=== PATIENT | male | born 1955 | race Caucasian/White ===

== ENCOUNTER 2016-06-26 06:06 | Emergency (ER) | payer MEDICARE, MEDICAID ==
[~2016-06-26] VITALS: Ht 175.3 cm; Wt 129.0 kg
[~2016-06-26 06:06] MED LIST: GEOD80CA PO; PERC10TA27 PO; WELL150T PO; [UNRECOGNIZED DRUG - CODE]
[2016-06-26 06:11] VITALS: TEMP 99.6
[2016-06-26 06:14] VITALS: BP 139/75; PULSE 88; RESP 14; TEMP 99.6; O2SAT 95
[2016-06-26] MEDS ORDERED: BUPR100T4 PO (06:19)
[2016-06-26] MEDS ORDERED: ZIPR1CAP10 PO (06:19)
[2016-06-26] MEDS ORDERED: ONDANSETRON HCL 4 MG/2 ML VIAL IV PUSH ONE (06:45)
[2016-06-26] MEDS ORDERED: SODIUM CHLOR 0.9% 1000 ML INJ 1,000 ML IV ONE (06:45)
[2016-06-26] MEDS ORDERED: KETOROLAC TROMETHAMINE 30 MG/ML (IVP) VIAL IV PUSH ONE (06:45)
--- NOTE | 2016-06-26 06:47 | PD ---
HPI Chief Complaint: Flank/Kidney Pain Time Seen by Provider: 06:38 Travel History International Travel<30 days: No Contact w/Intl Traveler<30days: No Traveled to known affect area: No History of Present Illness HPI 60yo M with PMH of bipolar disorder and nephrolithiasis presents to the ED with c/o right lower back pain since last night. +NBNB vomiting and nonbloody diarrhea last night. Did not take any pain medication. Pain is localized, sharp and nonradiating, worst with movement. Denies any fever, chest pain, sob , trauma, focal weakness or numbness, abdominal pain, urinary complaints. PFSH Past Medical History Arthritis: Yes Asthma: No Autoimmune Disease: No Blood Disorders: No Bipolar Disorder: Yes Anxiety: Yes Depression: Yes Heart Rhythm Problems: No Cancer: No Cardiovascular Problems: Yes (HTN) Cerebral Palsy: Yes High Cholesterol: Yes Chemotherapy: No Chest Pain: No Congestive Heart Failure: No COPD: No Cerebrovascular Accident: No Developmental Delay: Yes (H/O CP AND ENCEPHALITIS) Diabetes: No Diminished Hearing: No Diverticulitis: Yes Endocrine: No Gastrointestinal Disorders: Yes (DIVERTICULITIS) GERD: Yes Glaucoma: No Genitourinary: No Headaches: No Hepatitis: No Hiatal Hernia: No Hypertension: Yes Immune Disorder: No Implanted Vascular Access Dvce: Yes (PT STATES "TWO TOTAL KNEE REPLACEMENTS") Kidney Stones: Yes (WITH LITHOTRIPSY) Musculoskeletal: Yes Neurologic: No Psychiatric: Yes Reproductive: No Respiratory: No Immunizations Current: Yes Migraines: No Myocardial Infarction: No Radiation Therapy: No Renal Failure: No Seizures: No Sickle Cell Disease: No Sleep Apnea: No Thyroid Disease: No Ulcer: No PNEUMOCCOCAL Vaccine (Year): 2009 Past Surgical History Abdominal Surgery: No AICD: No Appendectomy: No Arteriovenous Shunt: No Cardiac Surgery: No Cholecystectomy: No Ear Surgery: No Endocrine Surgery: No Eye Surgery: No Genitourinary Surgery: No Gynecologic Surgery: No Insulin Pump: No Joint Replacement: Yes (BILATERAL KNEES) Neurologic Surgery: Yes (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, cp as a kid, traces now per patient repor) Oral Surgery: No Pacemaker: No Thoracic Surgery: No Tonsillectomy: Yes Other Surgery: Yes Social History Alcohol Use: No Tobacco Use: Yes (1PPD) Substance Use: No Allergies-Medications (Allergen,Severity, Reaction): Coded Allergies: Keflex (Verified Allergy, Severe, RASH, 06/26/16) Reported Meds & Prescriptions Reported Meds & Active Scripts Active Reported Bupropion HCl 100 Mg Tab 150 Mg PO HS Ziprasidone 60 Mg Cap 120 Mg PO HS Review of Systems Except as stated in HPI: all other systems reviewed are Neg Physical Exam Narrative GENERAL: 60yo M not in distress. SKIN: Focused skin assessment warm/dry. HEAD: Atraumatic. Normocephalic. CARDIOVASCULAR: Regular rate and rhythm. No murmur appreciated. RESPIRATORY: No accessory muscle use. Clear to auscultation. Breath sounds equal bilaterally. GASTROINTESTINAL: Abdomen soft, non-tender, nondistended. No rebound tenderness or guarding. BACK: No midline ttp thoracic or lumbar spine. +TTP right paraspinal lumbar spine. Negative straight leg test. MUSCULOSKELETAL: No obvious deformities. No clubbing. No cyanosis. +Bilateral lower ext edema. NEUROLOGICAL: Awake and alert. No obvious cranial nerve deficits. Motor grossly within normal limits. Normal speech. PSYCHIATRIC: Appropriate mood and affect; insight and judgment normal. Data Data Last Documented VS Vital Signs Date Time Temp Pulse Resp B/P Pulse Ox O2 Delivery O2 Flow Rate FiO2 06/26/16 09:00 06/26/16 08:49 77 16 100 Room Air 06/26/16 06:14 99.6 Orders Complete Blood Count With Diff (06/26/16 06:42) Comprehensive Metabolic Panel (06/26/16 06:42) Urinalysis - C+S If Indicated (06/26/16 06:42) Ct Abd/Pel W/O Iv Contrast (06/26/16 ) Ondansetron Inj (Zofran Inj) (06/26/16 06:45) Sodium Chlor 0.9% 1000 Ml Inj (Ns 1000 M (06/26/16 06:45) Ketorolac Inj (Toradol Inj) (06/26/16 06:45) Labs Laboratory Tests Test 06/26/16 06/26/16 06:46 07:10 White Blood Count 9.5 TH/MM3 Red Blood Count 5.36 MIL/MM3 Hemoglobin 17.2 GM/DL Hematocrit 49.7 % Mean Corpuscular Volume 92.8 FL Mean Corpuscular Hemoglobin 32.1 PG Mean Corpuscular Hemoglobin 34.6 % Concent Red Cell Distribution Width 12.8 % Platelet Count 181 TH/MM3 Mean Platelet Volume 7.8 FL Neutrophils (%) (Auto) 89.5 % Lymphocytes (%) (Auto) 6.8 % Monocytes (%) (Auto) 3.3 % Eosinophils (%) (Auto) 0.2 % Basophils (%) (Auto) 0.2 % Neutrophils # (Auto) 8.5 TH/MM3 Lymphocytes # (Auto) 0.6 TH/MM3 Monocytes # (Auto) 0.3 TH/MM3 Eosinophils # (Auto) 0.0 TH/MM3 Basophils # (Auto) 0.0 TH/MM3 CBC Comment DIFF FINAL Differential Comment Sodium Level 137 MEQ/L Potassium Level 4.5 MEQ/L Chloride Level 105 MEQ/L Carbon Dioxide Level 24.1 MEQ/L Anion Gap 8 MEQ/L Blood Urea Nitrogen 21 MG/DL Creatinine 1.23 MG/DL Estimat Glomerular Filtration 60 ML/MIN Rate Random Glucose 102 MG/DL Calcium Level 9.0 MG/DL Total Bilirubin 0.8 MG/DL Aspartate Amino Transf 38 U/L (AST/SGOT) Alanine Aminotransferase 31 U/L (ALT/SGPT) Alkaline Phosphatase 75 U/L Total Protein 7.3 GM/DL Albumin 3.8 GM/DL Urine Color YELLOW Urine Turbidity CLEAR Urine pH 5.0 Urine Specific [employer] 1.022 Urine Protein NEG mg/dL Urine Glucose (UA) NEG mg/dL Urine Ketones NEG mg/dL Urine Occult Blood NEG Urine Nitrite NEG Urine Bilirubin NEG Urine Urobilinogen LESS THAN 2.0 MG/DL Urine Leukocyte Esterase NEG Urine RBC LESS THAN 1 /hpf Urine WBC LESS THAN 1 /hpf Urine Squamous Epithelial <1 /hpf Cells Urine Mucus FEW /lpf Microscopic Urinalysis Comment CULT NOT INDICATED MDM Medical Decision Making Medical Screen Exam Complete: Yes Emergency Medical Condition: Yes Differential Diagnosis Musculoskeletal pain vs. nephrolithiasis vs. pyelonephritis vs. gastroenteritis Narrative Course 60yo M with right lower back pain. Impression is more musculoskeletal but pt also has history of nephrolithiasis. No red flags. Pt seen at end of my shift , sign out to next team to follow up labs, UA, CTa/p without contrast. Diagnosis Primary Impression: Back pain Qualified Code: M54.5 - Acute low back pain without sciatica, unspecified back pain laterality Sandra Hamilton DO Jun 26, 2016 06:47
[2016-06-26 07:00] LABS: AUTOMATED NEUTROPHIL # 8.5 TH/MM3 (1.8-7.7); BASOPHIL % 0.2 % (0.0-2.0); EOSINOPHIL % 0.2 % (0.0-4.0); HEMATOCRIT 49.7 % (39.0-51.0); HEMO FLAGS DIFF FINAL; LYMPH % 6.8 % (9.0-44.0); LYMPHOCYTE # 0.6 TH/MM3 (1.0-4.8); MEAN CELL VOLUME 92.8 FL (80.0-100.0); MEAN CORPUSCULAR HEMOGLOBIN 32.1 PG (27.0-34.0); MEAN CORPUSCULAR HGB CONC 34.6 % (32.0-36.0); MONO % 3.3 % (0.0-8.0); NEUT % 89.5 % (16.0-70.0); PLATELET COUNT 181 TH/MM3 (150-450); RED BLOOD COUNT 5.36 MIL/MM3 (4.50-5.90); RED CELL DISTRIBUTION WIDTH 12.8 % (11.6-17.2); WHITE BLOOD COUNT 9.5 TH/MM3 (4.0-11.0)
[2016-06-26 07:17] LABS: ALKALINE PHOSPHATASE 75 U/L (45-117); TOTAL BILIRUBIN ADULT 0.8 MG/DL (0.2-1.0)
[2016-06-26 07:25] LABS: ALT (GPT) 31 U/L (12-78); ANION GAP 8 MEQ/L (5-15); AST (GOT) 38 U/L (15-37); BICARBONATE 24.1 MEQ/L (21.0-32.0); BLOOD UREA NITROGEN 21 MG/DL (7-18); CHLORIDE 105 MEQ/L (98-107); GLOMERULAR FILTRATION RATE 60 ML/MIN (>89); SODIUM (NA) 137 MEQ/L (136-145)
[2016-06-26 07:27] LABS: POTASSIUM 4.5 MEQ/L (3.5-5.1)
[2016-06-26 07:33] LABS: BLOOD, URINE NEG (NEG); GLUCOSE,URINE NEG (NEG); KETONE, URINE NEG (NEG); MUCUS URINE FEW /lpf (OCC); NITRITE,URINE NEG (NEG); SQUAMOUS EPITHELIAL CELL URINE <1 /hpf (0-5); URINE COLOR YELLOW (YELLW/STRAW)
[2016-06-26 07:37] LABS: COMMENT (UR) CULT NOT INDICATED; CULTURE IF INDICATED CULT NOT INDICATED
--- NOTE | 2016-06-26 07:48 | RADRPT ---
EXAM DATE/TIME: 06/26/2016 07:08 [facility] COMPARISON: CT ABDOMEN & PELVIS W/O CONTRAST, October 23, 2012, 3:49. INDICATIONS : Right flank pain. ORAL CONTRAST: No oral contrast ingested. RADIATION DOSE: 33.82 CTDIvol (mGy) MEDICAL HISTORY : Renal calculi. Hypertension. Cerebral palsy. SURGICAL HISTORY : None. ENCOUNTER: Initial ACUITY: 1 day PAIN SCALE: 7/10 LOCATION: Right flank TECHNIQUE: Volumetric scanning of the abdomen and pelvis was performed. Using automated exposure control and ad justment of the mA and/or kV according to patient size, radiation dose was kept as low as reasonably achievable to obtain optimal diagnostic quality images. FINDINGS: LOWER LUNGS: The visualized lower lungs are clear. LIVER: Homogeneous density without lesion. There is no dilation of the biliary tree. Multiple calcified gal lstones. SPLEEN: Normal size without lesion. PANCREAS: Within normal limits. 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 There is no mass, stone, or hydronephrosis. ADRENAL GLANDS: Within normal limits. VASCULAR: There is no aortic aneurysm. BOWEL/MESENTERY: Diverticulosis. There is no free intraperitoneal air or fluid. Appendix not well-seen. No inflammato ry changes right lower quadrant. ABDOMINAL WALL: Small fat-containing umbilical hernia. RETROPERITONEUM: There is no lymphadenopathy. BLADDER: No wall thickening or mass. REPRODUCTIVE: Within normal limits. INGUINAL: There is no lymphadenopathy or hernia. MUSCULOSKELETAL: Spondylolisthesis L5 on S1 with degenerative changes. CONCLUSION: 1. Cholelithiasis. 2. Diverticulosis of the colon without diverticulitis. 3. Small hiatal hernia. 4. No renal calculi or hydronephrosis. Amadou Leon MD on June 26, 2016 at 7:43 Board Certified Radiologist. This report was verified electronically.
--- NOTE | 2016-06-26 08:39 | PD ---
Data Data Last Documented VS Vital Signs Date Time Temp Pulse Resp B/P Pulse Ox O2 Delivery O2 Flow Rate FiO2 06/26/16 06:14 99.6 88 14 139/75 95 Room Air Orders Complete Blood Count With Diff (06/26/16 06:42) Comprehensive Metabolic Panel (06/26/16 06:42) Urinalysis - C+S If Indicated (06/26/16 06:42) Ct Abd/Pel W/O Iv Contrast (06/26/16 ) Ondansetron Inj (Zofran Inj) (06/26/16 06:45) Sodium Chlor 0.9% 1000 Ml Inj (Ns 1000 M (06/26/16 06:45) Ketorolac Inj (Toradol Inj) (06/26/16 06:45) Labs Laboratory Tests Test 06/26/16 06/26/16 06:46 07:10 White Blood Count 9.5 TH/MM3 Red Blood Count 5.36 MIL/MM3 Hemoglobin 17.2 GM/DL Hematocrit 49.7 % Mean Corpuscular Volume 92.8 FL Mean Corpuscular Hemoglobin 32.1 PG Mean Corpuscular Hemoglobin 34.6 % Concent Red Cell Distribution Width 12.8 % Platelet Count 181 TH/MM3 Mean Platelet Volume 7.8 FL Neutrophils (%) (Auto) 89.5 % Lymphocytes (%) (Auto) 6.8 % Monocytes (%) (Auto) 3.3 % Eosinophils (%) (Auto) 0.2 % Basophils (%) (Auto) 0.2 % Neutrophils # (Auto) 8.5 TH/MM3 Lymphocytes # (Auto) 0.6 TH/MM3 Monocytes # (Auto) 0.3 TH/MM3 Eosinophils # (Auto) 0.0 TH/MM3 Basophils # (Auto) 0.0 TH/MM3 CBC Comment DIFF FINAL Differential Comment Sodium Level 137 MEQ/L Potassium Level 4.5 MEQ/L Chloride Level 105 MEQ/L Carbon Dioxide Level 24.1 MEQ/L Anion Gap 8 MEQ/L Blood Urea Nitrogen 21 MG/DL Creatinine 1.23 MG/DL Estimat Glomerular Filtration 60 ML/MIN Rate Random Glucose 102 MG/DL Calcium Level 9.0 MG/DL Total Bilirubin 0.8 MG/DL Aspartate Amino Transf 38 U/L (AST/SGOT) Alanine Aminotransferase 31 U/L (ALT/SGPT) Alkaline Phosphatase 75 U/L Total Protein 7.3 GM/DL Albumin 3.8 GM/DL Urine Color YELLOW Urine Turbidity CLEAR Urine pH 5.0 Urine Specific [place] 1.022 Urine Protein NEG mg/dL Urine Glucose (UA) NEG mg/dL Urine Ketones NEG mg/dL Urine Occult Blood NEG Urine Nitrite NEG Urine Bilirubin NEG Urine Urobilinogen LESS THAN 2.0 MG/DL Urine Leukocyte Esterase NEG Urine RBC LESS THAN 1 /hpf Urine WBC LESS THAN 1 /hpf Urine Squamous Epithelial <1 /hpf Cells Urine Mucus FEW /lpf Microscopic Urinalysis Comment CULT NOT INDICATED MDM Supervised Visit with YOU: No Narrative Course This case is checked out to me by Dr. Hamilton at 7 AM. I have reevaluated the patient and discussed the entirety of the workup with him. The urine is clean and labs are normal. CT abdomen and pelvis shows no sign of kidney stone. There are some incidental findings such as cholelithiasis and diverticulosis. He is resting comfortably and feels much better. He is stable for outpatient primary care follow-up. Diagnosis Primary Impression: Back pain Qualified Code: M54.5 - Acute low back pain without sciatica, unspecified back pain laterality Additional Instruction: The patient was advised to follow up with their physician and return if they worsen. Med/Other Pt SpecificInfo: Other Disposition: 01 DISCHARGE HOME Condition: Stable Jomar Costello MD Jun 26, 2016 08:39
[2016-06-26 08:49] VITALS: BP 151/80; PULSE 77; RESP 16; O2SAT 100
== END 2016-06-26 09:13 | disposition home or self-care (01) ==
LOC: NEPE 06:06
DX: M54.5 Low back pain (principal); R11.10 Vomiting, unspecified; R19.7 Diarrhea, unspecified; I10 Essential (primary) hypertension; E78.00 Pure hypercholesterolemia, unspecified; G80.9 Cerebral palsy, unspecified; F17.200 Nicotine dependence, unspecified, uncomplicated; Z87.39 Personal history of other diseases of the musculoskeletal system and connective tissue; Z86.59 Personal history of other mental and behavioral disorders; Z86.79 Personal history of other diseases of the circulatory system; Z87.19 Personal history of other diseases of the digestive system; Z87.448 Personal history of other diseases of urinary system
CPT/HCPCS: 74176; 80053; 81001; 85025; 96361; 96374; 96375; 99284; J1885; J2405; J7030

== ENCOUNTER 2017-03-20 18:12 | Inpatient (IN) | payer MEDICARE, MEDICAID ==
[~2017-03-20] VITALS: Ht 175.3 cm; Wt 127.4 kg
[~2017-03-20 18:12] MED LIST changes: +BUPR100T4 PO; -GEOD80CA PO; -PERC10TA27 PO; -WELL150T PO; +ZIPR1CAP10 PO; -[UNRECOGNIZED DRUG - CODE]
[2017-03-20 18:27] VITALS: BP 142/68; PULSE 103; RESP 18; TEMP 101.8; O2SAT 95
[2017-03-20 18:31] VITALS: BP 142/68; PULSE 70; RESP 18; TEMP 101.8; O2SAT 95
[2017-03-20 19:00] VITALS: RESP 18; O2SAT 95
[2017-03-20] MEDS ORDERED: SODIUM CHLORIDE 0.9% FLUSH 10 ML FLUSH IV FLUSH PRN ×2 (19:00→22:30)
[2017-03-20 19:55] LABS: AUTOMATED NEUTROPHIL # 16.8 TH/MM3 (1.8-7.7); BASOPHIL % 0.1 % (0.0-2.0); HEMATOCRIT 42.1 % (39.0-51.0); HEMOGLOBIN 15.1 GM/DL (13.0-17.0); LYMPH % 5.7 % (9.0-44.0); LYMPHOCYTE # 1.1 TH/MM3 (1.0-4.8); MEAN CELL VOLUME 90.3 FL (80.0-100.0); MEAN CORPUSCULAR HEMOGLOBIN 32.5 PG (27.0-34.0); MEAN CORPUSCULAR HGB CONC 35.9 % (32.0-36.0); MEAN PLATELET VOLUME 7.4 FL (7.0-11.0); MONO % 7.3 % (0.0-8.0); MONOCYTE # 1.4 TH/MM3 (0-0.9); NEUT % 86.9 % (16.0-70.0); PLATELET COUNT 204 TH/MM3 (150-450); RED BLOOD COUNT 4.66 MIL/MM3 (4.50-5.90); RED CELL DISTRIBUTION WIDTH 12.8 % (11.6-17.2); WHITE BLOOD COUNT 19.3 TH/MM3 (4.0-11.0)
--- NOTE | 2017-03-20 19:58 | PD ---
HPI Chief Complaint: Fall Time Seen by Provider: 18:34 Travel History International Travel<30 days: No Contact w/Intl Traveler<30days: No Traveled to known affect area: No History of Present Illness HPI 61-year-old male with PMH of hypertension and cerebral palsy presents to the ED via EMS for evaluation after multiple falls at home. On presentation the patient states that he's been feeling dizzy lately and has had multiple falls. He denies hitting his head or loss of consciousness. On presentation he denies neck or back pain. He complains of dizziness, cough, loose stools 1 week. He endorses chills but has not measured a fever at home. He denies headache, vision changes, chest pain, palpitations, shortness of breath, abdominal pain, hematochezia, melena, dysuria, hematuria. He states that he does not have a primary care provider. He does not take blood thinners. PFSH Past Medical History Arthritis: Yes Asthma: No Autoimmune Disease: No Blood Disorders: No Bipolar Disorder: Yes Anxiety: Yes Depression: Yes Heart Rhythm Problems: No Cancer: No Cardiovascular Problems: Yes (HTN ) Cerebral Palsy: Yes High Cholesterol: Yes Chemotherapy: No Chest Pain: No Congestive Heart Failure: No COPD: No Cerebrovascular Accident: No Developmental Delay: Yes (H/O CP AND ENCEPHALITIS) Diabetes: No Diminished Hearing: No Diverticulitis: Yes Endocrine: No Gastrointestinal Disorders: Yes (DIVERTICULITIS) GERD: Yes Glaucoma: No Genitourinary: No Headaches: No Hepatitis: No Hiatal Hernia: No Hypertension: Yes Immune Disorder: No Implanted Vascular Access Dvce: Yes (PT STATES "TWO TOTAL KNEE REPLACEMENTS") Kidney Stones: Yes (WITH LITHOTRIPSY) Musculoskeletal: Yes Neurologic: No Psychiatric: Yes Reproductive: No Respiratory: No Immunizations Current: Yes Migraines: No Myocardial Infarction: No Radiation Therapy: No Renal Failure: No Seizures: No Sickle Cell Disease: No Sleep Apnea: No Thyroid Disease: No Ulcer: No PNEUMOCCOCAL Vaccine (Year): 2009 Past Surgical History Abdominal Surgery: No AICD: No Appendectomy: No Arteriovenous Shunt: No Cardiac Surgery: No Cholecystectomy: No Ear Surgery: No Endocrine Surgery: No Eye Surgery: No Genitourinary Surgery: No Gynecologic Surgery: No Insulin Pump: No Joint Replacement: Yes (BILATERAL KNEES) Neurologic Surgery: Yes (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, cp as a kid, traces now per patient repor) Oral Surgery: No Pacemaker: No Thoracic Surgery: No Tonsillectomy: Yes Other Surgery: Yes Social History Alcohol Use: No Tobacco Use: No Substance Use: No Allergies-Medications (Allergen,Severity, Reaction): Coded Allergies: cephalexin (Unverified Allergy, Severe, RASH, 11/11/16) Reported Meds & Prescriptions Reported Meds & Active Scripts Active Reported Bupropion HCl 100 Mg Tab 150 Mg PO HS Ziprasidone 60 Mg Cap 120 Mg PO HS Review of Systems Except as stated in HPI: all other systems reviewed are Neg Physical Exam Narrative GENERAL: Well-nourished, well-developed patient. Lying on his side on a backboard. C-collar in place. SKIN: Focused skin assessment warm/dry. Bilateral lower extremities with multiple small wounds, erythema, edema, warmth, serosanguineous drainage. HEAD: Normocephalic. Atraumatic. EYES: No scleral icterus. No injection or drainage. PERRLA. EOMI. NECK: Supple, trachea midline. No JVD or lymphadenopathy. No midline tenderness to palpation. No limitations to range of motion. CARDIOVASCULAR: Regular rate and rhythm without murmurs, gallops, or rubs. RESPIRATORY: Breath sounds equal bilaterally. No accessory muscle use. GASTROINTESTINAL: Abdomen soft, non-tender, nondistended. MUSCULOSKELETAL: No cyanosis. Tender edema of the bilateral lower extremities to the knee. NEUROLOGICAL: Awake and alert. Cranial nerves II through XII intact. Motor and sensory grossly within normal limits. Five out of 5 muscle strength in all muscle groups. Normal speech. BACK: Nontender without obvious deformity. No CVA tenderness. Data Data Last Documented VS Vital Signs Date Time Temp Pulse Resp B/P (MAP) Pulse Ox O2 Delivery O2 Flow Rate FiO2 03/20/17 21:54 88 20 114/66 (82) 95 Room Air 03/20/17 18:31 101.8 Orders Orders Complete Blood Count With Diff (03/20/17 18:55) Comprehensive Metabolic Panel (03/20/17 18:55) Lactic Acid (03/20/17 18:55) Prothrombin Time / Inr (Pt) (03/20/17 18:55) Act Partial Throm Time (Ptt) (03/20/17 18:55) Urinalysis - C+S If Indicated (03/20/17 18:55) Iv Access Insert/Monitor (03/20/17 18:55) Ecg Monitoring (03/20/17 18:55) Oximetry (03/20/17 18:55) Sodium Chloride 0.9% Flush (Ns Flush) (03/20/17 19:00) Sodium Chlor 0.9% 1000 Ml Inj (Ns 1000 M (03/20/17 20:00) Acetaminophen (Tylenol) (03/20/17 20:00) Sepsis Workup Initiated (03/20/17 ) Blood Culture (03/20/17 19:59) Chest, Single Ap (03/20/17 19:59) Ct Brain W/O Iv Contrast(Rout) (03/20/17 ) Sodium Chlor 0.9% 1000 Ml Inj (Ns 1000 M (03/20/17 21:00) Clindamycin Inj (Cleocin Inj) (03/20/17 21:00) Cath For Specimen (03/20/17 21:01) Labs Laboratory Tests Test 03/20/17 19:21 White Blood Count 19.3 TH/MM3 Red Blood Count 4.66 MIL/MM3 Hemoglobin 15.1 GM/DL Hematocrit 42.1 % Mean Corpuscular Volume 90.3 FL Mean Corpuscular Hemoglobin 32.5 PG Mean Corpuscular Hemoglobin Concent 35.9 % Red Cell Distribution Width 12.8 % Platelet Count 204 TH/MM3 Mean Platelet Volume 7.4 FL Neutrophils (%) (Auto) 86.9 % Lymphocytes (%) (Auto) 5.7 % Monocytes (%) (Auto) 7.3 % Eosinophils (%) (Auto) 0.0 % Basophils (%) (Auto) 0.1 % Neutrophils # (Auto) 16.8 TH/MM3 Lymphocytes # (Auto) 1.1 TH/MM3 Monocytes # (Auto) 1.4 TH/MM3 Eosinophils # (Auto) 0.0 TH/MM3 Basophils # (Auto) 0.0 TH/MM3 CBC Comment AUTO DIFF Differential Total Cells Counted 100 Neutrophils % (Manual) 80 % Band Neutrophils % 13 % Lymphocytes % 2 % Monocytes % 5 % Neutrophils # (Manual) 17.9 TH/MM3 Differential Comment FINAL DIFF MANUAL Toxic Granulation 2+ Platelet Estimate NORMAL Platelet Morphology Comment NORMAL Prothrombin Time 13.4 SEC Prothromb Time International Ratio 1.3 RATIO Activated Partial Thromboplast Time 33.3 SEC Blood Urea Nitrogen 14 MG/DL Creatinine 1.52 MG/DL Random Glucose 75 MG/DL Total Protein 7.3 GM/DL Albumin 2.9 GM/DL Calcium Level 8.2 MG/DL Alkaline Phosphatase 86 U/L Aspartate Amino Transf (AST/SGOT) 58 U/L Alanine Aminotransferase (ALT/SGPT) 42 U/L Total Bilirubin 1.3 MG/DL Sodium Level 132 MEQ/L Potassium Level 3.3 MEQ/L Chloride Level 96 MEQ/L Carbon Dioxide Level 26.5 MEQ/L Anion Gap 10 MEQ/L Estimat Glomerular Filtration Rate 47 ML/MIN Lactic Acid Level 3.1 mmol/L [facility] Medical Decision Making Medical Screen Exam Complete: Yes Emergency Medical Condition: Yes Differential Diagnosis Cellulitis versus sepsis versus chronic falls versus metabolic derangement versus dehydration versus other Narrative Course 61-year-old male with PMH of hypertension and cerebral palsy presents to the ED via EMS for evaluation after multiple falls at home. He denies hitting his head or loss of consciousness. On presentation he denies neck or back pain. He complains of dizziness, cough, loose stools 1 week. He endorses chills but has not measured a fever at home. Denies blood thinners. Vitals reviewed. Patient's febrile, or cardiac and hypertensive on presentation. On exam the patient is lying on his side on a backboard. He is wearing a c-collar. Patient was cleared off the backboard. He denies neck pain and has no tenderness to palpation or limitation to range of motion of the neck. C-collar was removed. No focal neuro deficits noted. There is multiple small wounds of the lower extremities with warm, tender edema and erythema to the mid shins bilaterally. Left worse than right. I suspect this is the source of his fever. IV was established. Patient was administered 2 L normal saline, 1 g Tylenol by mouth. Blood cultures were obtained. There was some concern of the patient may have bedbugs. I see no evidence of this on the exam. CBC: WBC 19.3 with left shift and 13 bands. CMP: Sodium 132, coronary 6. Potassium 3.3. BUN 14. Creatinine 1.52. Calcium 8.2. Bilirubin 1.3, AST 58, ALT 42. Lactic acid 3.1. UA: Pending. CT brain: Pending Patient was administered 900 mg clindamycin IV. Patient meets sepsis criteria. I discussed the results of workup with the patient as well as the need for admission to the hospital. He is agreeable to that plan. I spoke with Dr. Brown who agrees to accept the patient to the medicine service. Please see medicine notes for disposition. Diana Coffey Mar 20, 2017 19:58
[2017-03-20] MEDS ORDERED: SODIUM CHLOR 0.9% 1000 ML INJ 1,000 ML IV ONE ×2 (20:00→21:00)
[2017-03-20] MEDS ORDERED: ACETAMINOPHEN 500 MG CPLT PO ONE (20:00)
[2017-03-20 20:08] LABS: INTERNATIONAL NORMALIZED RATIO 1.3 RATIO; PROTHROMBIN TIME - PATIENT 13.4 SEC (9.8-11.6)
[2017-03-20 20:16] LABS: ALBUMIN 2.9 GM/DL (3.4-5.0); AST (GOT) 58 U/L (15-37); BICARBONATE 26.5 MEQ/L (21.0-32.0); BLOOD UREA NITROGEN 14 MG/DL (7-18); CALCIUM 8.2 MG/DL (8.5-10.1); CHLORIDE 96 MEQ/L (98-107); CREATININE 1.52 MG/DL (0.60-1.30); GLOMERULAR FILTRATION RATE 47 ML/MIN (>89); GLUCOSE,RANDOM 75 MG/DL (74-106); SODIUM (NA) 132 MEQ/L (136-145)
[2017-03-20 20:17] LABS: ALT (GPT) 42 U/L (12-78)
[2017-03-20 20:19] LABS: ALKALINE PHOSPHATASE 86 U/L (45-117); TOTAL BILIRUBIN ADULT 1.3 MG/DL (0.2-1.0); TOTAL PROTEIN 7.3 GM/DL (6.4-8.2)
--- NOTE | 2017-03-20 20:30 | RADRPT ---
EXAM DATE/TIME: 03/20/2017 20:06 [facility] COMPARISON: CHEST SINGLE AP, September 14, 2014, 20:36. INDICATIONS : Shortness of breath. MEDICAL HISTORY : Renal calculi. Hypertension. Cerebral palsy. SURGICAL HISTORY : None. ENCOUNTER: Initial ACUITY: 1 day PAIN SCORE: 0/10 LOCATION: Bilateral chest FINDINGS: A single view of the chest demonstrates the lungs to be symmetrically aerated without evidence of mas s, infiltrate or effusion. The cardiomediastinal contours are unremarkable. Osseous structures are intact. CONCLUSION: The lungs are clear. James Curtis MD on March 20, 2017 at 20:27 Board Certified Radiologist. This report was verified electronically.
[2017-03-20] MEDS ORDERED: CLINDAMYCIN INJ 900 MG in SODIUM CHLORIDE 0.9% INJ 100 ML IV ONE (21:00)
[2017-03-20 21:42] LABS: BANDS 13 % (0-6); LYMPHOCYTES 2 % (9-44); MONOCYTES 5 % (0-8); NEUTROPHIL # MANUAL DIFF 17.9 TH/MM3 (1.8-7.7); POLYS (SEG NEUTROPHILS) 80 % (16-70)
[2017-03-20 21:43] LABS: TOXIC GRANULATION 2+ (NORMAL)
[2017-03-20 21:54] VITALS: BP 114/66; PULSE 88; RESP 20; O2SAT 95
[2017-03-20] MEDS ORDERED: SODIUM CHLOR 0.9% 1000 ML INJ 1,000 ML IV SCH (22:17)
--- NOTE | 2017-03-20 22:22 | HHI.HP ---
HPI Service [facility] Primary Care Physician Unknown Admission Diagnosis sepsis, BLE cellulitis Diagnoses: (1) Sepsis Diagnosis: Principal (2) Cellulitis Diagnosis: Principal (3) Renal insufficiency Diagnosis: Principal (4) Cerebral palsy Diagnosis: Principal (5) Fall Diagnosis: Principal Travel History International Travel<30 Days: No Contact w/Intl Traveler <30 Da: No Traveled to Known Affected Are: No History of Present Illness This is a 61-year-old male with PMH of Anxiety, Depression, HTN, Hyperlipidemia and Cerebral Palsy was brought to the ER by EMS secondary to fall at home while getting out of the shower. Denies LOC or head trauma, but reports significant dizziness/lightheadedness. Also reports cough, generalized weakness and subjective fever/chills at home. On arrival, BP 142/68, HR 103, O2 sat 95% on RA, Temp 101.8. WBC 19.3, bandemia 13%. Creatinine 1.52, previously 1.23 on . Lactic Acid 3.1. INR 1.3. UA negative. CXR with no acute findings. CT Head negative. On exam, patient noted to have lower extremity cellulitis bilaterally. S/p Blood Cultures/Clinda IV in ER. Review of Systems Except as stated in HPI: all other systems reviewed are Neg ROS: 14 point review of systems otherwise negative. Past Family Social History Past Medical History PMH: Anxiety, Depression, HTN, Hyperlipidemia and Cerebral Palsy Past Surgical History PAST SURGICAL HISTORY: Bilateral Knee Replacement Allergies: Coded Allergies: cephalexin (Unverified Allergy, Severe, RASH, 11/11/16) Family History PAST FAMILY HISTORY: Reviewed. No h/o DM or CAD Social History PAST SOCIAL HISTORY: Negative for alcohol, tobacco or drugs. Physical Exam Vital Signs Vital Signs Date Time Temp Pulse Resp B/P (MAP) Pulse Ox O2 Delivery O2 Flow Rate FiO2 03/20/17 21:54 88 20 114/66 (82) 95 Room Air 03/20/17 19:00 18 95 Room Air 03/20/17 18:31 104 18 95 Room Air 03/20/17 18:31 101.8 70 18 142/68 (92) 95 Room Air 03/20/17 18:27 101.8 103 18 142/68 (92) 95 Physical Exam PE: GENERAL: Middle-aged white male in no acute distress. HEENT: PERRLA, EOMI. No scleral icterus or conjunctival pallor. No lid lag or facial droop. CARDIOVASCULAR: Regular rate and rhythm. No obvious murmurs to auscultation. No chest tenderness to palpation. RESPIRATORY: No obvious rhonchi or wheezing. Clear to auscultation. Breath sounds equal bilaterally. GASTROINTESTINAL: Abdomen soft, non-tender, nondistended. BS normal. MUSCULOSKELETAL: Extremities without clubbing, cyanosis, or edema. No obvious deformities. Bilateral lower extremity erythema with some warmth, multiple wounds noted. NEUROLOGICAL: Awake, alert. No focal neurologic deficits. Moving both upper and lower extremities spontaneously. Laboratory Laboratory Tests Test 03/20/17 19:21 White Blood Count 19.3 Red Blood Count 4.66 Hemoglobin 15.1 Hematocrit 42.1 Mean Corpuscular Volume 90.3 Mean Corpuscular Hemoglobin 32.5 Mean Corpuscular Hemoglobin Concent 35.9 Red Cell Distribution Width 12.8 Platelet Count 204 Mean Platelet Volume 7.4 Neutrophils (%) (Auto) 86.9 Lymphocytes (%) (Auto) 5.7 Monocytes (%) (Auto) 7.3 Eosinophils (%) (Auto) 0.0 Basophils (%) (Auto) 0.1 Neutrophils # (Auto) 16.8 Lymphocytes # (Auto) 1.1 Monocytes # (Auto) 1.4 Eosinophils # (Auto) 0.0 Basophils # (Auto) 0.0 CBC Comment AUTO DIFF Differential Total Cells Counted 100 Neutrophils % (Manual) 80 Band Neutrophils % 13 Lymphocytes % 2 Monocytes % 5 Neutrophils # (Manual) 17.9 Differential Comment FINAL DIFF MANUAL Toxic Granulation 2+ Platelet Estimate NORMAL Platelet Morphology Comment NORMAL Prothrombin Time 13.4 Prothromb Time International Ratio 1.3 Activated Partial Thromboplast Time 33.3 Blood Urea Nitrogen 14 Creatinine 1.52 Random Glucose 75 Total Protein 7.3 Albumin 2.9 Calcium Level 8.2 Alkaline Phosphatase 86 Aspartate Amino Transf (AST/SGOT) 58 Alanine Aminotransferase (ALT/SGPT) 42 Total Bilirubin 1.3 Sodium Level 132 Potassium Level 3.3 Chloride Level 96 Carbon Dioxide Level 26.5 Anion Gap 10 Estimat Glomerular Filtration Rate 47 Lactic Acid Level 3.1 Date/Time Source Procedure Growth Status 03/20/17 20:20 Blood Peripheral Aerobic Blood Culture Pending Received 03/20/17 20:20 Blood Peripheral Anaerobic Blood Culture Pending Received Result Diagram: 03/20/17192003/20/171920 Maren VTE Risk Assessment Maren VTE Risk Assessment: No/Low Risk (score <= 1) Caprini Risk Assessment Model Point Value = 1 Point Value = 2 Point Value = 3 Point Value = 5 Age 41-60 Minor surgery BMI > 25 kg/m2 Swollen legs Varicose veins or History of unexplained or recurrent spontaneous Oral contraceptives or hormone replacement Sepsis (< 1 month) Serious lung disease, including pneumonia (< 1 month) Abnormal pulmonary function Acute myocardial infarction Congestive heart failure (< 1 month) History of inflammatory bowel disease Medical patient at bed rest Age 61-74 Arthroscopic surgery Major open surgery (> 45 min) Laparoscopic surgery (> 45 min) Malignancy Confined to bed (> 72 hours) Immobilizing plaster cast Central venous access Age >= 75 History of VTE Family history of VTE Factor V Leiden Prothrombin [id number] Lupus anticoagulant Anticardiolipin antibodies Elevated serum homocysteine Heparin-induced thrombocytopenia Other congenital or acquired thrombophilia Stroke (< 1 month) Elective arthroplasty Hip, pelvis, or leg fracture Acute spinal cord injury (< 1 month) Prophylaxis Regimen Total Risk Factor Score Risk Level Prophylaxis Regimen 0-1 Low Early ambulation 2 Moderate Order ONE of the following: *Sequential Compression Device (SCD) *Heparin 5000 units SQ BID 3-4 Higher Order ONE of the following medications: *Heparin 5000 units SQ TID *Enoxaparin/Lovenox 40 mg SQ daily (WT < 150 kg, CrCl > 30 mL/min) *Enoxaparin/Lovenox 30 mg SQ daily (WT < 150 kg, CrCl > 10-29 mL/min) *Enoxaparin/Lovenox 30 mg SQ BID (WT < 150 kg, CrCl > 30 mL/min) AND/OR *Sequential Compression Device (SCD) 5 or more Highest Order ONE of the following medications: *Heparin 5000 units SQ TID (Preferred with Epidurals) *Enoxaparin/Lovenox 40 mg SQ daily (WT < 150 kg, CrCl > 30 mL/min) *Enoxaparin/Lovenox 30 mg SQ daily (WT < 150 kg, CrCl > 10-29 mL/min) *Enoxaparin/Lovenox 30 mg SQ BID (WT < 150 kg, CrCl > 30 mL/min) AND *Sequential Compression Device (SCD) Assessment and Plan Problem List: (1) Sepsis ICD Code: A41.9 - Sepsis, unspecified organism (2) Cellulitis ICD Code: L03.90 - Cellulitis, unspecified (3) Renal insufficiency ICD Code: N28.9 - Disorder of kidney and ureter, unspecified (4) Cerebral palsy ICD Code: G80.9 - Cerebral palsy, unspecified (5) Fall ICD Code: W19.XXXA - Unspecified fall, initial encounter Assessment and Plan A/P: 1. Sepsis: Temp 101.8, HR 103, WBC 19.3, Lactic Acid 3.1, Source-Cellulitis. CXR w/ no acute findings, images reviewed by me. S/p Blood Cultures/Clinda IV in ER. In light of significant leukocytosis w/ bandemia, will continue w/ broad -spectrum IV Abx. Follow up cultures. Repeat Lactic Acid. 2. Cellulitis: Bilateral Lower Extremities. Treatment as above, follow up cultures, continue IV Abx 3. HEENA: Acute renal insufficiency, creatinine 1.52, previously 1.23. UA negative for UTI. IVF for hydration. Repeat labs in a.m. 4. Cerebral Palsy: At baseline. Patient with mild developmental delay. 5. Fall: s/p mechanical trip and fall today, reports multiple falls in last few days w/ associated dizziness, likely secondary to acute infection/ dehydration. CT Head w/ no acute findings, images reviewed by me. No other injuries noted. 6. DVT Prophylaxis: Heparin sq 7. Social work for d/c planning as needed. 8. Case discussed w/ ER physician at length. Physician Certification 2 Midnight Certification Type: Admission for Inpatient Services Order for Inpatient Services The services are ordered in accordance with Medicare regulations or non- Medicare payer requirements, as applicable. In the case of services not specified as inpatient-only, they are appropriately provided as inpatient services in accordance with the 2-midnight benchmark. Estimated LOS (days): 2 days is the estimated time the patient will need to remain in the hospital, assuming treatment plan goals are met and no additional complications. Post-Hospital Plan: Not yet determined Marta Brown MD Mar 20, 2017 22:22
[2017-03-20 22:30] VITALS: BP 133/66; PULSE 84; RESP 18; TEMP 98.4; O2SAT 97
[2017-03-20] MEDS ORDERED: SENNOSIDES 8.6 MG TAB PO PRN (22:30)
[2017-03-20] MEDS ORDERED: ACETAMINOPHEN/HYDROcodone 325 MG/5 MG TAB PO PRN (22:30)
[2017-03-20] MEDS ORDERED: LACTULOSE SYRUP 20 GM/30 ML CUP PO PRN (22:30)
[2017-03-20] MEDS ORDERED: MAGNESIUM HYDROXIDE SUSP 30 ML CUP PO PRN (22:30)
[2017-03-20] MEDS ORDERED: BISACODYL 10 MG SUPP RECTAL PRN (22:30)
[2017-03-20] MEDS ORDERED: ACETAMINOPHEN 325 MG TAB PO PRN (22:30)
[2017-03-20 22:48] LABS: BACTERIA, URINE OCC /hpf; BILIRUBIN, URINE NEG (NEG); BLOOD, URINE MOD (NEG); GLUCOSE,URINE NEG (NEG); HYALINE CAST, URINE 1 /lpf (RARE); KETONE, URINE 10 mg/dL (NEG); MUCUS URINE FEW /lpf (OCC); NITRITE,URINE NEG (NEG); SQUAMOUS EPITHELIAL CELL URINE <1 /hpf (0-5); URINE COLOR YELLOW (YELLW/STRAW); URINE LEUKOCYTE ESTERASE NEG (NEG)
--- NOTE | 2017-03-20 22:50 | RADRPT ---
EXAM DATE/TIME: 03/20/2017 22:19 [place] COMPARISON: No previous studies available for comparison. INDICATIONS : Dizziness, fall. RADIATION DOSE: 56.35 CTDIvol (mGy) MEDICAL HISTORY : Cardiovascular disease. SURGICAL HISTORY : None. ENCOUNTER: Initial ACUITY: 1 day PAIN SCALE: Non-responsive LOCATION: cranial TECHNIQUE: Multiple contiguous axial images were obtained of the head. Using automated exposure control and adj ustment of the mA and/or kV according to patient size, radiation dose was kept as low as reasonably a chievable to obtain optimal diagnostic quality images. DICOM format image data is available electro nically for review and comparison. FINDINGS: CEREBRUM: The ventricles are normal for age. No evidence of midline shift, mass lesion, hemorrhage or acute in farction. No extra-axial fluid collections are seen. POSTERIOR FOSSA: The cerebellum and brainstem are intact. The 4th ventricle is midline. The cerebellopontine angle i s unremarkable. EXTRACRANIAL: The visualized portion of the orbits is intact. SKULL: The calvaria is intact. No evidence of skull fracture. CONCLUSION: 1. Negative noncontrast CT brain. James Curtis MD on March 20, 2017 at 22:46 Board Certified Radiologist. This report was verified electronically.
[2017-03-21] VITALS (8 sets, daily range): BP systolic 120–140; BP diastolic 59–75; PULSE 81–98; RESP 17–20; TEMP 97.6–99.8; O2SAT 94–98
[2017-03-21] MEDS: AZTREONAM INJ 1,000 MG in SODIUM CHLORIDE 0.9% INJ 100 ML IV SCH ×4 (00:53→22:50)
[2017-03-21] MEDS: ACETAMINOPHEN/HYDROcodone 325 MG/10 MG TAB PO PRN ×2 (01:09→09:09)
[2017-03-21] MEDS ORDERED: VANCOMYCIN INJ 2,000 MG in SODIUM CHLORID 0.9% 500 ML INJ 500 ML IV SCH ×3 (06:00)
[2017-03-21] MEDS ORDERED: Vancomycin Consult Pharmacy 1 EA OTHER SCH (06:00)
[2017-03-21 08:32] LABS: AUTOMATED NEUTROPHIL # 17.5 TH/MM3 (1.8-7.7); BASOPHIL % 0.1 % (0.0-2.0); EOSINOPHIL % 0.1 % (0.0-4.0); HEMATOCRIT 40.9 % (39.0-51.0); HEMOGLOBIN 14.3 GM/DL (13.0-17.0); LYMPH % 6.5 % (9.0-44.0); LYMPHOCYTE # 1.3 TH/MM3 (1.0-4.8); MEAN CELL VOLUME 91.3 FL (80.0-100.0); MEAN CORPUSCULAR HEMOGLOBIN 31.9 PG (27.0-34.0); MEAN CORPUSCULAR HGB CONC 34.9 % (32.0-36.0); MEAN PLATELET VOLUME 7.4 FL (7.0-11.0); MONO % 4.6 % (0.0-8.0); MONOCYTE # 0.9 TH/MM3 (0-0.9); NEUT % 88.7 % (16.0-70.0); PLATELET COUNT 190 TH/MM3 (150-450); RED BLOOD COUNT 4.48 MIL/MM3 (4.50-5.90); RED CELL DISTRIBUTION WIDTH 12.8 % (11.6-17.2); WHITE BLOOD COUNT 19.8 TH/MM3 (4.0-11.0)
[2017-03-21 08:52] LABS: ALBUMIN 2.5 GM/DL (3.4-5.0); AST (GOT) 84 U/L (15-37); BICARBONATE 25.8 MEQ/L (21.0-32.0); BLOOD UREA NITROGEN 14 MG/DL (7-18); CALCIUM 8.1 MG/DL (8.5-10.1); CHLORIDE 100 MEQ/L (98-107); CREATININE 1.12 MG/DL (0.60-1.30); GLOMERULAR FILTRATION RATE 66 ML/MIN (>89); GLUCOSE,RANDOM 71 MG/DL (74-106); SODIUM (NA) 134 MEQ/L (136-145)
[2017-03-21 08:53] LABS: ALT (GPT) 44 U/L (12-78)
[2017-03-21 08:55] LABS: ALKALINE PHOSPHATASE 79 U/L (45-117); TOTAL BILIRUBIN ADULT 1.1 MG/DL (0.2-1.0); TOTAL PROTEIN 6.9 GM/DL (6.4-8.2)
[2017-03-21] MEDS: HEPARIN SODIUM - SQ 10,000 UNITS/ML VIAL SQ SCH ×2 (09:09→22:49)
[2017-03-21] MEDS: DOCUSATE SODIUM 50 MG/SENNA 8.6 MG TAB PO SCH ×2 (09:09→22:49)
[2017-03-21] MEDS: SODIUM CHLORIDE 0.9% FLUSH 10 ML FLUSH IV FLUSH SCH ×2 (09:09→22:50)
--- NOTE | 2017-03-21 14:20 | HHI.PR ---
Subjective Remarks Follow-up cellulitis and sepsis. States his dizziness is improving but complains of weakness. Discussed with RN Objective Vitals Vital Signs Date Time Temp Pulse Resp B/P (MAP) Pulse Ox O2 Delivery O2 Flow Rate FiO2 03/21/17 12:07 99.8 93 20 129/62 (84) 95 140/75 (96) 03/21/17 08:09 97.6 98 20 130/62 (84) 96 03/21/17 04:00 81 03/21/17 04:00 99.0 83 18 129/72 (91) 98 03/21/17 00:00 84 03/20/17 23:36 03/20/17 22:30 98.4 84 18 133/66 (88) 97 03/20/17 21:54 88 20 114/66 (82) 95 Room Air 03/20/17 19:00 18 95 Room Air 03/20/17 18:31 104 18 95 Room Air 03/20/17 18:31 101.8 70 18 142/68 (92) 95 Room Air 03/20/17 18:27 101.8 103 18 142/68 (92) 95 I/O 03/20/17 03/20/17 03/20/17 03/21/17 03/21/17 03/21/17 07:00 15:00 23:00 07:00 15:00 23:00 Intake Total 200 ml Output Total 800 ml Balance -600 ml Intake IV Total 200 ml Output Urine Total 800 ml Result Diagram: 03/21/17 0759 03/21/17 0759 Imaging Last Impressions Chest X-Ray 03/20/171958 Signed Impressions: Service Date/Time: Monday, March 20, 2017 20:06 - CONCLUSION: The lungs are clear. James Curtis MD Head CT 03/20/17 0000 Signed Impressions: Service Date/Time: Monday, March 20, 2017 22:19 - CONCLUSION: 1. Negative noncontrast CT brain. James Curtis MD Objective Remarks GENERAL: Middle-aged white male in no acute distress. HEENT: PERRLA, EOMI. No scleral icterus or conjunctival pallor. No lid lag or facial droop. CARDIOVASCULAR: Regular rate and rhythm. No obvious murmurs to auscultation. No chest tenderness to palpation. RESPIRATORY: No obvious rhonchi or wheezing. Clear to auscultation. Breath sounds equal bilaterally. GASTROINTESTINAL: Abdomen soft, non-tender, nondistended. BS normal. MUSCULOSKELETAL: Extremities without clubbing, cyanosis, or edema. No obvious deformities. Bilateral lower extremity erythema with some warmth, multiple wounds noted. NEUROLOGICAL: Awake, alert. No focal neurologic deficits. Moving both upper and lower extremities spontaneously. Procedures None A/P Problem List: (1) Sepsis ICD Code: A41.9 - Sepsis, unspecified organism (2) Cellulitis ICD Code: L03.90 - Cellulitis, unspecified (3) Renal insufficiency ICD Code: N28.9 - Disorder of kidney and ureter, unspecified (4) Cerebral palsy ICD Code: G80.9 - Cerebral palsy, unspecified (5) Fall ICD Code: W19.XXXA - Unspecified fall, initial encounter Assessment and Plan 1. Sever sepsis with cellulitis of bilateral lower extremities worse on the left. Continue broad-spectrum IV antibiotics with vancomycin and aztreonam. Follow-up blood culture negative to date 2. Elevated AST likely secondary to sepsis versus rhabdomyolysis. Monitor 3. HEENA with hypokalemia. Pulling on IV hydration. Replace potassium check magnesium level and treat accordingly. Avoid nephrotoxins 4. Cerebral Palsy: At baseline. Patient with mild developmental delay. 5. Fall: s/p mechanical trip and fall, reports multiple falls in last few days w/ associated dizziness, likely secondary to acute infection/dehydration. CT Head w/ no acute findings, images reviewed by me. No other injuries noted. PT eval 6. Rhabdomyolysis status post fall. Continue IV hydration. DVT Prophylaxis: Heparin sq Discharge Planning Home health care versus rehabilitation Tucker Abreu MD Mar 21, 2017 14:20
[2017-03-21] MEDS ORDERED: POTASSIUM CHLORIDE 20 MEQ CONTROLLED RELEASE TAB PO ONE (14:30)
[2017-03-21] MEDS: NS + KCL 20 MEQ INJ 1,000 ML IV SCH (14:32)
[2017-03-21] MEDS: buPROPion HCL 100 MG TAB PO SCH (22:49)
[2017-03-21] MEDS: ZIPRASIDONE HCL 60 MG CAP PO SCH (22:49)
[2017-03-22] VITALS: BP 138/66; PULSE 82; PULSE 88; RESP 18; TEMP 98.6; O2SAT 95
[2017-03-22] MEDS: NS + KCL 20 MEQ INJ 1,000 ML IV SCH ×3 (00:31→20:15)
[2017-03-22 04:00] VITALS: BP 134/70; PULSE 89; RESP 18; TEMP 97.5; O2SAT 95
[2017-03-22 05:34] VITALS: PULSE 87
[2017-03-22] MEDS: AZTREONAM INJ 1,000 MG in SODIUM CHLORIDE 0.9% INJ 100 ML IV SCH ×3 (06:07→23:18)
--- NOTE | 2017-03-22 07:45 | HHI.DCPOC ---
Discharge Care Plan Diagnosis: (1) Sepsis (2) Fall (3) Cellulitis Your Health Problems Are: Difficulty with ADL Exercise Tolerance Goals to Promote Your Health * To prevent worsening of your condition and complications * To maintain your health at the optimal level Directions to Meet Your Goals Take your medications as prescribed Follow your dietary instruction Follow activity as directed Keep your appointments as scheduled Take your immunizations and boosters as scheduled If your symptoms worsen call your PCP, if no PCP go to Urgent Care Center or Emergency Room Smoking is Dangerous to Your Health. Avoid second hand smoke Call the 24-hour hour crisis hotline for domestic abuse at Tucker Abreu MD Mar 22, 2017 07:45
--- NOTE | 2017-03-22 07:48 | HHI.FF ---
Face to Face Verification Diagnosis: (1) Sepsis (2) Cellulitis Physical Therapy Order: Evaluate and Treat, Improve ambulation, Strength and gait training Home Health Nursing Order: Medical education Signs/symptoms of disease process Medication education-adverse effect Wound care and dressing changes Nursing assessment with vital signs I have seen patient Natan Khan on 03/22/17. My clinical findings support the need for the requested home health care services because: Ltd mobility - disease progression I certify that my clinical findings support that this patient is homebound because: Unsafe to leave home unassisted Need for psychosocial assistance Tucker Abreu MD Mar 22, 2017 07:47
[2017-03-22] MEDS ORDERED: HYDR-3583 PO (07:51)
[2017-03-22 08:00] VITALS: BP 144/75; PULSE 81; PULSE 84; RESP 20; TEMP 98.7; O2SAT 93
[2017-03-22] MEDS: ONDANSETRON HCL 4 MG/2 ML VIAL IVP PRN ×2 (08:01→17:24)
[2017-03-22] MEDS: SODIUM CHLORIDE 0.9% FLUSH 10 ML FLUSH IV FLUSH SCH ×2 (08:03→21:00)
[2017-03-22 08:42] LABS: AUTOMATED NEUTROPHIL # 12.2 TH/MM3 (1.8-7.7); BASOPHIL % 0.2 % (0.0-2.0); EOSINOPHIL % 0.1 % (0.0-4.0); HEMATOCRIT 37.6 % (39.0-51.0); HEMOGLOBIN 13.1 GM/DL (13.0-17.0); LYMPH % 7.2 % (9.0-44.0); MEAN CELL VOLUME 90.8 FL (80.0-100.0); MEAN CORPUSCULAR HEMOGLOBIN 31.7 PG (27.0-34.0); MEAN CORPUSCULAR HGB CONC 34.9 % (32.0-36.0); MEAN PLATELET VOLUME 7.7 FL (7.0-11.0); MONO % 6.9 % (0.0-8.0); NEUT % 85.6 % (16.0-70.0); PLATELET COUNT 174 TH/MM3 (150-450); RED BLOOD COUNT 4.14 MIL/MM3 (4.50-5.90); WHITE BLOOD COUNT 14.2 TH/MM3 (4.0-11.0)
[2017-03-22] MEDS: DOCUSATE SODIUM 50 MG/SENNA 8.6 MG TAB PO SCH ×2 (09:03→21:00)
[2017-03-22] MEDS: HEPARIN SODIUM - SQ 10,000 UNITS/ML VIAL SQ SCH ×2 (09:03→21:15)
[2017-03-22 09:04] LABS: ALBUMIN 2.1 GM/DL (3.4-5.0); AST (GOT) 64 U/L (15-37); BICARBONATE 25.1 MEQ/L (21.0-32.0); BLOOD UREA NITROGEN 12 MG/DL (7-18); CALCIUM 7.6 MG/DL (8.5-10.1); CHLORIDE 103 MEQ/L (98-107); CREATININE 0.78 MG/DL (0.60-1.30); GLOMERULAR FILTRATION RATE 101 ML/MIN (>89); GLUCOSE,RANDOM 103 MG/DL (74-106); SODIUM (NA) 135 MEQ/L (136-145)
[2017-03-22 09:20] LABS: ALKALINE PHOSPHATASE 75 U/L (45-117); ALT (GPT) 41 U/L (12-78); TOTAL BILIRUBIN ADULT 0.6 MG/DL (0.2-1.0); TOTAL PROTEIN 6.1 GM/DL (6.4-8.2)
[2017-03-22] MEDS ORDERED: POTASSIUM CHLORIDE 10 MEQ CONTROLLED RELEASE TAB PO ONE (09:45)
[2017-03-22] MEDS ORDERED: VANCOMYCIN 1,500 MG/NS 500 ML IV SCH ×2 (10:00)
[2017-03-22 12:00] VITALS: BP 147/80; PULSE 81; RESP 20; TEMP 98.8; O2SAT 97
--- NOTE | 2017-03-22 14:17 | HHI.PR ---
Subjective Remarks Follow-up sepsis, cellulitis and rhabdomyolysis. Vomited 2 earlier today. Discussed with RN Objective Vitals Vital Signs Date Time Temp Pulse Resp B/P (MAP) Pulse Ox O2 Delivery O2 Flow Rate FiO2 03/22/17 12:00 98.8 81 20 147/80 (102) 97 03/22/17 08:00 98.7 84 20 144/75 (98) 93 03/22/17 08:00 Room Air 03/22/17 08:00 81 03/22/17 05:34 87 03/22/17 04:00 97.5 89 18 134/70 (91) 95 03/22/17 00:00 88 03/22/17 00:00 98.6 82 18 138/66 (90) 95 03/21/17 20:04 86 03/21/17 20:00 99.8 91 17 130/59 (82) 94 03/21/17 20:00 Room Air 03/21/17 16:05 98.6 90 20 120/63 (82) 97 126/66 (86) I/O 03/21/17 03/21/17 03/21/17 03/22/17 03/22/17 03/22/17 07:00 15:00 23:00 07:00 15:00 23:00 Intake Total 200 ml 480 ml 1460 ml Output Total 800 ml 150 ml 450 ml 800 ml 325 ml Balance -600 ml -150 ml 30 ml 660 ml -325 ml Intake Oral 480 ml 360 ml IV Total 200 ml 1100 ml Output Urine Total 800 ml 150 ml 450 ml 800 ml 325 ml # Bowel Movements 0 0 Result Diagram: 03/22/1740 03/22/1740 Imaging Last Impressions Chest X-Ray 03/20/171958 Signed Impressions: Service Date/Time: Monday, March 20, 2017 20:06 - CONCLUSION: The lungs are clear. James Curtis MD Head CT 03/20/17 0000 Signed Impressions: Service Date/Time: Monday, March 20, 2017 22:19 - CONCLUSION: 1. Negative noncontrast CT brain. James Curtis MD Objective Remarks GENERAL: Middle-aged white male in no acute distress. HEENT: PERRLA, EOMI. No scleral icterus or conjunctival pallor. No lid lag or facial droop. CARDIOVASCULAR: Regular rate and rhythm. No obvious murmurs to auscultation. No chest tenderness to palpation. RESPIRATORY: No obvious rhonchi or wheezing. Clear to auscultation. Breath sounds equal bilaterally. GASTROINTESTINAL: Abdomen soft, non-tender, nondistended. BS normal. MUSCULOSKELETAL: Extremities without clubbing, cyanosis, or edema. No obvious deformities. Bilateral lower extremity erythema with some warmth particularly left leg, multiple wounds noted. NEUROLOGICAL: Awake, alert. No focal neurologic deficits. Moving both upper and lower extremities spontaneously. Procedures None A/P Problem List: (1) Sepsis ICD Code: A41.9 - Sepsis, unspecified organism (2) Cellulitis ICD Code: L03.90 - Cellulitis, unspecified (3) Renal insufficiency ICD Code: N28.9 - Disorder of kidney and ureter, unspecified (4) Cerebral palsy ICD Code: G80.9 - Cerebral palsy, unspecified (5) Fall ICD Code: W19.XXXA - Unspecified fall, initial encounter Assessment and Plan 1. Severe sepsis with cellulitis of bilateral lower extremities worse on the left. One aerobic bottle with gram-positive cocci the other with coag negative and strep. Continue broad-spectrum IV antibiotics with vancomycin and aztreonam. Follow-up blood culture final results and consider ID consult 2. Elevated AST likely secondary to sepsis versus rhabdomyolysis. Monitor 3. HEENA with hypokalemia. Improving on IV hydration. Replace electrolytes accordingly. Avoid nephrotoxins 4. Cerebral Palsy: At baseline. Patient with mild developmental delay. 5. Fall: s/p mechanical trip and fall, reports multiple falls in last few days w/ associated dizziness, likely secondary to acute infection/dehydration. CT Head w/ no acute findings, images reviewed by me. No other injuries noted. PT eval 6. Rhabdomyolysis status post fall. Continue IV hydration. DVT Prophylaxis: Heparin sq Discharge Planning Home health care versus rehabilitation, not ready for discharge still on IV antibiotics Tucker Abreu MD Mar 22, 2017 14:17
[2017-03-22 20:00] VITALS: BP 148/76; PULSE 80; PULSE 81; RESP 18; TEMP 98; O2SAT 96
[2017-03-22] MEDS: buPROPion HCL 100 MG TAB PO SCH (21:15)
[2017-03-22] MEDS: ZIPRASIDONE HCL 60 MG CAP PO SCH (21:16)
[2017-03-23] VITALS (9 sets, daily range): BP systolic 131–152; BP diastolic 63–81; PULSE 75–90; RESP 16–20; TEMP 97.3–98.7; O2SAT 92–97
[2017-03-23] MEDS: NS + KCL 20 MEQ INJ 1,000 ML IV SCH (02:54)
[2017-03-23] MEDS: AZTREONAM INJ 1,000 MG in SODIUM CHLORIDE 0.9% INJ 100 ML IV SCH ×3 (05:25→22:06)
[2017-03-23 08:58] LABS: AUTOMATED NEUTROPHIL # 7.5 TH/MM3 (1.8-7.7); BASOPHIL # 0.1 TH/MM3 (0-0.2); BASOPHIL % 0.9 % (0.0-2.0); EOSINOPHIL % 0.3 % (0.0-4.0); HEMATOCRIT 38.8 % (39.0-51.0); HEMOGLOBIN 13.3 GM/DL (13.0-17.0); LYMPH % 12.8 % (9.0-44.0); LYMPHOCYTE # 1.2 TH/MM3 (1.0-4.8); MEAN CORPUSCULAR HEMOGLOBIN 31.7 PG (27.0-34.0); MEAN CORPUSCULAR HGB CONC 34.1 % (32.0-36.0); MEAN PLATELET VOLUME 7.5 FL (7.0-11.0); MONO % 7.2 % (0.0-8.0); MONOCYTE # 0.7 TH/MM3 (0-0.9); NEUT % 78.8 % (16.0-70.0); PLATELET COUNT 186 TH/MM3 (150-450); RED BLOOD COUNT 4.18 MIL/MM3 (4.50-5.90); RED CELL DISTRIBUTION WIDTH 13.3 % (11.6-17.2); WHITE BLOOD COUNT 9.5 TH/MM3 (4.0-11.0)
[2017-03-23] MEDS: DOCUSATE SODIUM 50 MG/SENNA 8.6 MG TAB PO SCH ×2 (09:00→21:00)
[2017-03-23] MEDS: SODIUM CHLORIDE 0.9% FLUSH 10 ML FLUSH IV FLUSH SCH ×2 (09:00→22:03)
[2017-03-23 09:35] LABS: TOXIC GRANULATION 2+ (NORMAL); TOXIC VACUOLATION PRESENT (NONE SEEN)
[2017-03-23 09:36] LABS: BICARBONATE 21.3 MEQ/L (21.0-32.0); CALCIUM 7.9 MG/DL (8.5-10.1); CREATININE 0.66 MG/DL (0.60-1.30); MAGNESIUM 2.2 MG/DL (1.5-2.5); RANDOM VANCOMYCIN 4.4 COMMENT
[2017-03-23] MEDS: VANCOMYCIN INJ 2,500 MG in SODIUM CHLORID 0.9% 500 ML INJ 500 ML IV SCH (12:18)
[2017-03-23] MEDS: HEPARIN SODIUM - SQ 10,000 UNITS/ML VIAL SQ SCH ×2 (12:18→21:00)
--- NOTE | 2017-03-23 15:36 | HHI.PR ---
Subjective Remarks Follow-up nausea, vomiting, sepsis and cellulitis. Improved nausea and vomiting. Patient requesting to be discharged to [facility]. Discussed with RN and Case Management Objective Vitals Vital Signs Date Time Temp Pulse Resp B/P (MAP) Pulse Ox O2 Delivery O2 Flow Rate FiO2 03/23/17 12:00 Room Air 03/23/17 12:00 97.3 90 18 131/69 (89) 94 03/23/17 08:00 97.9 84 18 141/76 (97) 94 03/23/17 04:00 98.4 84 16 131/71 (91) 94 03/23/17 04:00 Room Air 03/23/17 04:00 75 03/23/17 00:00 83 03/23/17 00:00 98.2 79 16 152/63 (92) 97 03/23/17 00:00 Room Air 03/22/17 20:00 Room Air 03/22/17 20:00 80 03/22/17 20:00 98.0 81 18 148/76 (100) 96 I/O 03/22/17 03/22/17 03/22/17 03/23/17 03/23/17 03/23/17 07:00 15:00 23:00 07:00 15:00 23:00 Intake Total 1460 ml 480 ml 1100 ml Output Total 800 ml 325 ml 1400 ml Balance 660 ml -325 ml 480 ml -300 ml Intake Oral 360 ml 480 ml IV Total 1100 ml 1100 ml Output Urine Total 800 ml 325 ml 1400 ml # Voids 1 # Bowel Movements 0 2 1 Result Diagram: 03/23/17 0720 03/23/17 0720 Imaging Last Impressions Chest X-Ray 03/20/171958 Signed Impressions: Service Date/Time: Monday, March 20, 2017 20:06 - CONCLUSION: The lungs are clear. James Curtis MD Head CT 03/20/17 0000 Signed Impressions: Service Date/Time: Monday, March 20, 2017 22:19 - CONCLUSION: 1. Negative noncontrast CT brain. James Curtis MD Objective Remarks GENERAL: Middle-aged white male in no acute distress. HEENT: PERRLA, EOMI. No scleral icterus or conjunctival pallor. No lid lag or facial droop. CARDIOVASCULAR: Regular rate and rhythm. No obvious murmurs to auscultation. No chest tenderness to palpation. RESPIRATORY: No obvious rhonchi or wheezing. Clear to auscultation. Breath sounds equal bilaterally. GASTROINTESTINAL: Abdomen soft, non-tender, nondistended. BS normal. MUSCULOSKELETAL: Extremities without clubbing, cyanosis but with bilateral pitting edema. No obvious deformities. Bilateral lower extremity erythema with some warmth particularly left leg, multiple wounds noted. NEUROLOGICAL: Awake, alert. No focal neurologic deficits. Moving both upper and lower extremities spontaneously. Procedures None A/P Problem List: (1) Sepsis ICD Code: A41.9 - Sepsis, unspecified organism (2) Cellulitis ICD Code: L03.90 - Cellulitis, unspecified (3) Renal insufficiency ICD Code: N28.9 - Disorder of kidney and ureter, unspecified (4) Cerebral palsy ICD Code: G80.9 - Cerebral palsy, unspecified (5) Fall ICD Code: W19.XXXA - Unspecified fall, initial encounter Assessment and Plan 1. Severe sepsis with cellulitis of bilateral lower extremities worse on the left. One aerobic bottle with gram-positive cocci the other with coag negative and strep likely secondary to cellulitis. Continue broad-spectrum IV antibiotics with vancomycin and aztreonam. Follow-up blood culture final results and consider ID consult 2. Elevated AST likely secondary to sepsis versus rhabdomyolysis. Monitor 3. HEENA with hypokalemia. Improved discontinue IV hydration. Replace electrolytes accordingly. Avoid nephrotoxins 4. Cerebral Palsy: At baseline. Patient with mild developmental delay. 5. Fall: s/p mechanical trip and fall, reports multiple falls in last few days w/ associated dizziness, likely secondary to acute infection/dehydration. CT Head w/ no acute findings, images reviewed by me. No other injuries noted. PT recommended home health care versus rehabilitation patient prefers to be discharged to [facility] 6. Rhabdomyolysis status post fall. Improved discontinue IV hydration. DVT Prophylaxis: Heparin sq Discharge Planning not ready for discharge still on IV antibiotics Tucker Abreu MD Mar 23, 2017 15:36
[2017-03-23] MEDS: ZIPRASIDONE HCL 60 MG CAP PO SCH (21:00)
[2017-03-23] MEDS: buPROPion HCL 100 MG TAB PO SCH (21:00)
[2017-03-24] VITALS (12 sets, daily range): BP systolic 117–154; BP diastolic 64–82; PULSE 68–82; RESP 18–20; TEMP 97.8–98.6; O2SAT 94–98
[2017-03-24] MEDS: AZTREONAM INJ 1,000 MG in SODIUM CHLORIDE 0.9% INJ 100 ML IV SCH ×3 (05:43→21:06)
[2017-03-24] MEDS: HEPARIN SODIUM - SQ 10,000 UNITS/ML VIAL SQ SCH ×2 (08:53→21:07)
[2017-03-24] MEDS: DOCUSATE SODIUM 50 MG/SENNA 8.6 MG TAB PO SCH ×2 (08:53→21:00)
[2017-03-24] MEDS: SODIUM CHLORIDE 0.9% FLUSH 10 ML FLUSH IV FLUSH SCH ×2 (08:53→21:06)
[2017-03-24 12:52] LABS: BICARBONATE 25.5 MEQ/L (21.0-32.0); CREATININE 0.64 MG/DL (0.60-1.30)
[2017-03-24 14:06] LABS: HEMATOCRIT 39.1 % (39.0-51.0); HEMOGLOBIN 13.2 GM/DL (13.0-17.0); MEAN CELL VOLUME 93.7 FL (80.0-100.0); MEAN CORPUSCULAR HEMOGLOBIN 31.6 PG (27.0-34.0); MEAN CORPUSCULAR HGB CONC 33.7 % (32.0-36.0); MEAN PLATELET VOLUME 7.5 FL (7.0-11.0); PLATELET COUNT 273 TH/MM3 (150-450); RED BLOOD COUNT 4.17 MIL/MM3 (4.50-5.90); RED CELL DISTRIBUTION WIDTH 13.2 % (11.6-17.2); WHITE BLOOD COUNT 8.3 TH/MM3 (4.0-11.0)
--- NOTE | 2017-03-24 15:12 | HHI.PR ---
Subjective Remarks Denies fevers and chills. RLE is still erythematous and swollen but with decreased tenderness Objective Vitals Vital Signs Date Time Temp Pulse Resp B/P (MAP) Pulse Ox O2 Delivery O2 Flow Rate FiO2 03/24/17 12:00 97.8 76 18 117/69 (85) 94 03/24/17 08:00 98.0 76 18 129/82 (98) 98 03/24/17 04:20 98.6 74 18 136/66 (89) 96 03/24/17 03:49 75 03/24/17 00:00 98.5 77 18 133/64 (87) 97 03/23/17 23:48 79 03/23/17 19:46 78 03/23/17 19:30 98.4 75 18 138/81 (100) 92 03/23/17 19:30 Room Air 03/23/17 18:36 83 03/23/17 16:00 98.7 84 20 149/72 (97) 95 I/O 03/23/17 03/23/17 03/23/17 03/24/17 03/24/17 03/24/17 06:59 14:59 22:59 06:59 14:59 22:59 Intake Total 1100 ml 1060 ml 480 ml Output Total 1400 ml 700 ml 1225 ml Balance -300 ml 360 ml -745 ml Intake Oral 960 ml 480 ml IV Total 1100 ml 100 ml Output Urine Total 1400 ml 700 ml 1225 ml # Voids 1 # Bowel Movements 1 1 0 Result Diagram: 03/24/17 1350 03/24/17 1220 Imaging Last Impressions Chest X-Ray 03/20/17 1959 Signed Impressions: Service Date/Time: Monday, March 20, 2017 20:06 - CONCLUSION: The lungs are clear. James Curtis MD Head CT 03/20/17 0000 Signed Impressions: Service Date/Time: Monday, March 20, 2017 22:19 - CONCLUSION: 1. Negative noncontrast CT brain. James Curtis MD Objective Remarks AAOx3 CLear lungs BL S1S2 RRR abdomen obese, soft, non tender non distended Left lower extremity is erythematous, mild tender to palpation with edema and swelling. Procedures None Medications and IVs Current Medications Medications (Trade) Dose Ordered Sig/[place] Route Start Time Stop Time Status Last Admin (NS Flush) 2 ml UNSCH PRN IV FLUSH 03/20/17 22:30 (NS Flush) 2 ml BID IV FLUSH 03/21/17 09:00 03/24/17 08:53 (Zofran Inj) 4 mg Q6H PRN IVP 03/20/17 22:30 03/22/17 17:24 (Heparin Inj) 5,000 units Q12H SQ 03/21/17 09:00 03/24/17 08:53 (Tylenol) 650 mg Q6H PRN PO 03/20/17 22:30 ([place] 5-325 Mg) 1 tab Q4H PRN PO 03/20/17 22:30 (Evelyn-Colace) 1 tab BID PO 03/21/17 09:00 03/24/17 08:53 (Milk Of Magnesia Liq) 30 ml Q12H PRN PO 03/20/17 22:30 (Senokot) 17.2 mg Q12H PRN PO 03/20/17 22:30 (Dulcolax Supp) 10 mg DAILY PRN RECTAL 03/20/17 22:30 (Lactulose Liq) 30 ml DAILY PRN PO 03/20/17 22:30 ([place] 10-325 Mg) 1 tab Q4H PRN PO 03/20/17 22:30 03/21/17 09:09 Pharmacy Profile Note 0 ml @ 0 mls/hr UNSCH OTHER 03/21/17 06:00 Aztreonam 1000 mg/ Sodium Chloride 100 ml @ 200 mls/hr Q8H IV 03/20/17 22:30 03/24/17 05:43 (Wellbutrin) 150 mg HS PO 03/21/17 21:00 03/22/17 21:15 (Geodon) 120 mg HS PO 03/21/17 21:00 03/22/17 21:16 Vancomycin HCl 2500 mg/Sodium Chloride 525 ml @ 257.5 mls/ hr Q24H IV 03/23/17 12:00 03/23/17 12:18 Miscellaneous Information SPECIFIC LAB TO BE TATE... ONCE ONCE .XX 03/25/17 11:45 03/25/17 11:46 A/P Problem List: (1) Sepsis ICD Code: A41.9 - Sepsis, unspecified organism (2) Cellulitis ICD Code: L03.90 - Cellulitis, unspecified Status: Acute (3) Cerebral palsy ICD Code: G80.9 - Cerebral palsy, unspecified Status: Chronic (4) Fall ICD Code: W19.XXXA - Unspecified fall, initial encounter Assessment and Plan 1. Severe sepsis with cellulitis of bilateral lower extremities worse on the left. One aerobic bottle with gram-positive cocci the other with coag negative and strep likely secondary to cellulitis. Continue broad-spectrum IV antibiotics with vancomycin and aztreonam. Follow-up blood culture final results and consider ID consult 03/24 Suspect blood culture findings likely contaminants. Continue IV antibiotics. Patient currently on IV vancomycin and IV Aztreonam. Discontinue IV vancomycin, will start on IV Levaquin and continue aztreonam. Will start on Lactobacilus Acidophilus to prevent C diff. 2. Elevated AST likely secondary to sepsis and rhabdomyolisis. 03/24 CK on admission was 3276, treated with IV fluids and trending down. AST initially trended up from 58-84, now trending down to 64. Check hepatitis profile if not previously done. 3. HEENA with hypokalemia. Improved discontinue IV hydration. Replace electrolytes accordingly. Avoid nephrotoxins 03/24 soft after IV fluid administration. AKA likely due to prerenal azotemia due to the hydration. IV fluids discontinued. Hypokalemia resolved after repletion. Continue to monitor BMP. 4. Cerebral Palsy: At baseline. Patient with mild developmental delay. 5. Fall: s/p mechanical trip and fall, reports multiple falls in last few days w/ associated dizziness, likely secondary to acute infection/dehydration. CT Head w/ no acute findings, images reviewed by me. No other injuries noted. PT recommended home health care versus rehabilitation patient prefers to be discharged to [facility]. 6. Rhabdomyolysis status post fall. Improved after IV fluid administration. DVT Prophylaxis: Heparin sq Discharge Planning Continue to monitor in the medical floor. Anticipate discharge in 1-2 days pending clinical improvement of cellulitis. Problem Qualifiers (1) Sepsis: Qualified Codes: A41.9 - Sepsis, unspecified organism (2) Cellulitis: Qualified Codes: L03.116 - Cellulitis of left lower limb (3) Cerebral palsy: Qualified Codes: G80.9 - Cerebral palsy, unspecified (4) Fall: Qualified Codes: W19.XXXD - Unspecified fall, subsequent encounter Adam Ballesteros MD Mar 24, 2017 15:12
[2017-03-24] MEDS: VANCOMYCIN INJ 2,500 MG in SODIUM CHLORID 0.9% 500 ML INJ 500 ML IV SCH (15:31)
[2017-03-24] MEDS: LEVOFLOXACIN 750 MG PREMIX INJ 150 ML IV SCH (16:00)
[2017-03-24] MEDS: ZIPRASIDONE HCL 60 MG CAP PO SCH (21:00)
[2017-03-24] MEDS: buPROPion HCL 100 MG TAB PO SCH (21:00)
[2017-03-25] VITALS (9 sets, daily range): BP systolic 130–150; BP diastolic 66–82; PULSE 65–88; RESP 18–20; TEMP 97.8–98.4; O2SAT 94–97
[2017-03-25] MEDS: AZTREONAM INJ 1,000 MG in SODIUM CHLORIDE 0.9% INJ 100 ML IV SCH ×3 (05:37→21:38)
[2017-03-25 08:58] LABS: AUTOMATED NEUTROPHIL # 6.3 TH/MM3 (1.8-7.7); BASOPHIL % 0.2 % (0.0-2.0); EOSINOPHIL # 0.1 TH/MM3 (0-0.4); EOSINOPHIL % 0.6 % (0.0-4.0); HEMATOCRIT 40.7 % (39.0-51.0); HEMOGLOBIN 13.8 GM/DL (13.0-17.0); LYMPH % 26.7 % (9.0-44.0); LYMPHOCYTE # 2.6 TH/MM3 (1.0-4.8); MEAN CELL VOLUME 92.8 FL (80.0-100.0); MEAN CORPUSCULAR HEMOGLOBIN 31.5 PG (27.0-34.0); MEAN PLATELET VOLUME 7.7 FL (7.0-11.0); MONO % 6.7 % (0.0-8.0); MONOCYTE # 0.6 TH/MM3 (0-0.9); NEUT % 65.8 % (16.0-70.0); PLATELET COUNT 285 TH/MM3 (150-450); RED BLOOD COUNT 4.39 MIL/MM3 (4.50-5.90); RED CELL DISTRIBUTION WIDTH 13.6 % (11.6-17.2); WHITE BLOOD COUNT 9.6 TH/MM3 (4.0-11.0)
[2017-03-25] MEDS: DOCUSATE SODIUM 50 MG/SENNA 8.6 MG TAB PO SCH ×3 (09:00→21:38)
[2017-03-25] MEDS: SODIUM CHLORIDE 0.9% FLUSH 10 ML FLUSH IV FLUSH SCH ×2 (09:08→21:39)
[2017-03-25] MEDS: HEPARIN SODIUM - SQ 10,000 UNITS/ML VIAL SQ SCH ×2 (09:08→21:38)
[2017-03-25 09:09] LABS: ALT (GPT) 62 U/L (12-78); PHOSPHORUS 2.9 MG/DL (2.5-4.9)
[2017-03-25 09:12] LABS: ALKALINE PHOSPHATASE 74 U/L (45-117); AST (GOT) 71 U/L (15-37); BICARBONATE 28.4 MEQ/L (21.0-32.0); BLOOD UREA NITROGEN 10 MG/DL (7-18); CALCIUM 8.5 MG/DL (8.5-10.1); CHLORIDE 102 MEQ/L (98-107); CREATININE 0.74 MG/DL (0.60-1.30); GLOMERULAR FILTRATION RATE 107 ML/MIN (>89); GLUCOSE,RANDOM 88 MG/DL (74-106); MAGNESIUM 2.1 MG/DL (1.5-2.5); SODIUM (NA) 138 MEQ/L (136-145); TOTAL BILIRUBIN ADULT 0.4 MG/DL (0.2-1.0); TOTAL PROTEIN 6.9 GM/DL (6.4-8.2)
[2017-03-25] MEDS: ONDANSETRON HCL 4 MG/2 ML VIAL IVP PRN (09:18)
[2017-03-25 10:56] LABS: BANDS 2 % (0-6); BASOPHILS 1 % (0-2); LYMPHOCYTES 15 % (9-44); MONOCYTES 1 % (0-8); POLYS (SEG NEUTROPHILS) 80 % (16-70); PROMYELOCYTES 1 % (0-0); TOXIC GRANULATION 1+ (NORMAL)
[2017-03-25] MEDS ORDERED: PHARMACY ORDERED LAB ONE (11:45)
--- NOTE | 2017-03-25 14:51 | HHI.PR ---
Subjective Remarks Denies fevers or chills. still has swellin and redness on LLE but denies pain note incomplete Objective Vitals Vital Signs Date Time Temp Pulse Resp B/P (MAP) Pulse Ox O2 Delivery O2 Flow Rate FiO2 03/25/17 12:45 79 03/25/17 12:26 Room Air 03/25/17 12:00 98.3 74 18 136/66 (89) 96 03/25/17 09:00 Room Air 03/25/17 08:00 98.0 72 20 139/76 (97) 95 03/25/17 08:00 88 03/25/17 04:00 98.3 75 18 133/70 (91) 95 03/25/17 03:47 69 03/25/17 00:00 98.2 70 18 150/82 (104) 97 03/24/17 23:49 70 03/24/17 20:00 Room Air 03/24/17 20:00 98.3 74 18 154/77 (102) 95 03/24/17 19:47 68 03/24/17 16:15 76 03/24/17 16:00 97.9 77 20 141/75 (97) 95 I/O 03/24/17 03/24/17 03/24/17 03/25/17 03/25/17 03/25/17 07:00 15:00 23:00 07:00 15:00 23:00 Intake Total 480 ml 1250 ml 240 ml Output Total 1225 ml 200 ml 300 ml Balance -745 ml 1050 ml -60 ml Intake Oral 480 ml 600 ml 240 ml IV Total 650 ml Output Urine Total 1225 ml 200 ml 300 ml # Voids 3 5 # Bowel Movements 0 3 1 Result Diagram: 03/25/17 0710 03/25/17 0710 Imaging Last Impressions Chest X-Ray 03/20/171958 Signed Impressions: Service Date/Time: Monday, March 20, 2017 20:06 - CONCLUSION: The lungs are clear. James Curtis MD Head CT 03/20/17 0000 Signed Impressions: Service Date/Time: Monday, March 20, 2017 22:19 - CONCLUSION: 1. Negative noncontrast CT brain. James Curtis MD Objective Remarks AAOx3 CLear lungs BL S1S2 RRR abdomen obese, soft, non tender non distended Left lower extremity is erythematous, mild tender to palpation with edema and swelling. Procedures None Medications and IVs Current Medications Medications (Trade) Dose Ordered Sig/[place] Route Start Time Stop Time Status Last Admin (NS Flush) 2 ml UNSCH PRN IV FLUSH 03/20/17 22:30 (NS Flush) 2 ml BID IV FLUSH 03/21/17 09:00 03/25/17 09:08 (Zofran Inj) 4 mg Q6H PRN IVP 03/20/17 22:30 03/25/17 09:18 (Heparin Inj) 5,000 units Q12H SQ 03/21/17 09:00 03/25/17 09:08 (Tylenol) 650 mg Q6H PRN PO 03/20/17 22:30 ([place] 5-325 Mg) 1 tab Q4H PRN PO 03/20/17 22:30 (Evelyn-Colace) 1 tab BID PO 03/21/17 09:00 03/24/17 08:53 (Milk Of Magnesia Liq) 30 ml Q12H PRN PO 03/20/17 22:30 (Senokot) 17.2 mg Q12H PRN PO 03/20/17 22:30 (Dulcolax Supp) 10 mg DAILY PRN RECTAL 03/20/17 22:30 (Lactulose Liq) 30 ml DAILY PRN PO 03/20/17 22:30 ([place] 10-325 Mg) 1 tab Q4H PRN PO 03/20/17 22:30 03/21/17 09:09 Aztreonam 1000 mg/ Sodium Chloride 100 ml @ 200 mls/hr Q8H IV 03/20/17 22:30 03/25/17 05:37 (Wellbutrin) 150 mg HS PO 03/21/17 21:00 03/22/17 21:15 (Geodon) 120 mg HS PO 03/21/17 21:00 03/22/17 21:16 Levofloxacin/ Dextrose 150 ml @ 100 mls/hr Q24H IV 03/24/17 16:00 A/P Problem List: (1) Sepsis ICD Code: A41.9 - Sepsis, unspecified organism (2) Cellulitis ICD Code: L03.90 - Cellulitis, unspecified Status: Acute (3) Cerebral palsy ICD Code: G80.9 - Cerebral palsy, unspecified Status: Chronic (4) Fall ICD Code: W19.XXXA - Unspecified fall, initial encounter Assessment and Plan 1. Severe sepsis with cellulitis of bilateral lower extremities worse on the left. One aerobic bottle with gram-positive cocci the other with coag negative and strep likely secondary to cellulitis. Continue broad-spectrum IV antibiotics with vancomycin and aztreonam. Follow-up blood culture final results and consider ID consult 03/24 Suspect blood culture findings likely contaminants. Continue IV antibiotics. Patient currently on IV vancomycin and IV Aztreonam. Discontinue IV vancomycin, will start on IV Levaquin and continue aztreonam. Will start on Lactobacilus Acidophilus to prevent C diff. 03/25 Continue IV antibiotics, Consult ID. 2. Elevated AST likely secondary to sepsis and rhabdomyolisis. 03/24 CK on admission was 3276, treated with IV fluids and trending down. AST initially trended up from 58-84, now trending down to 64. Check hepatitis profile if not previously done. 3. HEENA with hypokalemia. Improved discontinue IV hydration. Replace electrolytes accordingly. Avoid nephrotoxins 03/24 soft after IV fluid administration. AKA likely due to prerenal azotemia due to the hydration. IV fluids discontinued. Hypokalemia resolved after repletion. Continue to monitor BMP. 4. Cerebral Palsy: At baseline. Patient with mild developmental delay. 5. Fall: s/p mechanical trip and fall, reports multiple falls in last few days w/ associated dizziness, likely secondary to acute infection/dehydration. CT Head w/ no acute findings, images reviewed by me. No other injuries noted. PT recommended home health care versus rehabilitation patient prefers to be discharged to [facility]. 6. Rhabdomyolysis status post fall. Improved after IV fluid administration. 7. Hyponatremia: Resolved after IVF administration. Monitor BMP. DVT Prophylaxis: Heparin sq Discharge Planning Continue to monitor in the medical floor. Anticipate discharge in 1-2 days pending clinical improvement of cellulitis. Problem Qualifiers (1) Sepsis: Qualified Codes: A41.9 - Sepsis, unspecified organism (2) Cellulitis: Qualified Codes: L03.116 - Cellulitis of left lower limb (3) Cerebral palsy: Qualified Codes: G80.9 - Cerebral palsy, unspecified (4) Fall: Qualified Codes: W19.XXXD - Unspecified fall, subsequent encounter Adam Ballesteros MD Mar 25, 2017 14:51
[2017-03-25] MEDS: LEVOFLOXACIN 750 MG PREMIX INJ 150 ML IV SCH (17:38)
[2017-03-25] MEDS: AMPICILLIN-SULBACTAM INJ 3 GM in SODIUM CHLORIDE 0.9% INJ 100 ML IV SCH (18:58)
[2017-03-25] MEDS: ZIPRASIDONE HCL 60 MG CAP PO SCH (21:38)
[2017-03-25] MEDS: buPROPion HCL 100 MG TAB PO SCH (21:42)
--- NOTE | 2017-03-25 22:05 | MB ---
cc: HELDER JOHN MD DATE OF CONSULTATION: 03/25/[address] Fuentes. REASON FOR CONSULTATION: Left lower extremity cellulitis. HISTORY OF PRESENT ILLNESS This is a 61-year-old white male who was admitted to the hospital on 03/20/2017 with sepsis and cellulitis of the left lower extremity. This consultation was requested because the patient it is felt that the patient was not responding adequately to current antibiotic treatment. He was noted to have bilateral lower extremity cellulitis and was started on IV antibiotics after blood cultures were taken. The blood cultures are no growth. His white count on admission was 19.8 and he had a temperature of 101.8 degrees on admission. This prompted antibiotic treatment for sepsis. He received intravenous vancomycin on 03/21, and it was discontinued on 03/24. Currently he is on Levaquin and aztreonam. The left lower extremity has multiple dried excoriated lesions as does the left lower extremity and arms. The patient notes that he was bitten by bed bugs and subsequently these lesions came up. His white blood cell count is now normal. The patient voices no other complaints. PAST MEDICAL HISTORY Anxiety. Depression. Hyperlipidemia. Hypertension. Cerebral palsy. Bilateral knee replacement. ALLERGIES Cephalexin. MEDICATIONS 1. Levaquin 2. Aztreonam 3. Geodon. 4. Tylenol. 5. Heparin subcutaneous. 6. Lactulose. 7. [place] 10. SOCIAL HISTORY: No tobacco, no alcohol. No illicit drug use. FAMILY HISTORY: Noncontributory. REVIEW OF SYSTEMS: Review of systems negative on 10-point review. PHYSICAL EXAMINATION This is a morbidly obese male who is in no acute distress. He is awake and alert and oriented. Vital signs: Include temperature 97.8, blood pressure 136/75, respiratory rate 18, heart rate 73. EENT: Head is atraumatic. Extraocular movements grossly intact, pupils reactive to light. No icterus. Oropharynx: no lesions. Neck: Supple without adenopathy. Lungs: Clear breath sounds bilateral. Heart: Regular rate and rhythm without murmurs, rubs or gallops. Abdomen: Obese, soft, no tenderness appreciated. Rectal: Not performed. Extremities: Multiple excoriated coin lesions at the arms and legs around the tibia. The left leg has confluent erythema which is very beefy red circumferentially and also involving the left tibia and proximal aspect of the left foot and around the ankle. There is a lesser degree of erythema at the right tibia. LABORATORY DATA WBC 9.6, platelet 285, hemoglobin 13.8, creatinine 0.74, estimated GFR 107. IMPRESSION 1. Cellulitis of the legs with the left being very much more prominent than the right side. Poor response to prior antibiotic treatment. 2. Allergic to cephalexin. 3. Sepsis which appears under control with treatment. RECOMMENDATIONS 1. Discontinue aztreonam. 2. Begin Unasyn. 3. Discontinue Levaquin. 4. Monitor response to the Unasyn. 5. Monitor for recurrence of fever. Thank you for this consultation. The patient specifically tells me that he has no allergy to penicillin. I will monitor the patient's progress with you and make further recommendations upon follow up. Helder John MD FD/[place] /6:01 PM /9:37 PM [email or web address]
[2017-03-26] VITALS (8 sets, daily range): BP systolic 119–146; BP diastolic 65–73; PULSE 76–88; RESP 16–18; TEMP 97.8–98.6; O2SAT 92–95
[2017-03-26] MEDS: AMPICILLIN-SULBACTAM INJ 3 GM in SODIUM CHLORIDE 0.9% INJ 100 ML IV SCH ×4 (00:30→16:49)
[2017-03-26] MEDS: AZTREONAM INJ 1,000 MG in SODIUM CHLORIDE 0.9% INJ 100 ML IV SCH (06:36)
[2017-03-26] MEDS: DOCUSATE SODIUM 50 MG/SENNA 8.6 MG TAB PO SCH ×2 (07:58→21:00)
[2017-03-26] MEDS: HEPARIN SODIUM - SQ 10,000 UNITS/ML VIAL SQ SCH ×2 (07:58→21:37)
[2017-03-26] MEDS: SODIUM CHLORIDE 0.9% FLUSH 10 ML FLUSH IV FLUSH SCH ×2 (07:58→21:38)
--- NOTE | 2017-03-26 11:54 | HHI.IDPN ---
Note Infectious Disease Note Patient feels okay. Afebrile. R leg slightly less erythematous than yesterday. Tolerating Unasyn. Admitted to the hospital on 03/20/2017 with sepsis and cellulitis of the left lower extremity. This consultation was requested because the patient it is felt that the patient was not responding adequately to current antibiotic treatment. PAST MEDICAL HISTORY Anxiety. Depression. Hyperlipidemia. Hypertension. Cerebral palsy. Bilateral knee replacement. ALLERGIES Cephalexin. MEDICATIONS 1. Levaquin 2. Unasyn day #2. Vital Signs Date Time Temp Pulse Resp B/P (MAP) Pulse Ox O2 Delivery O2 Flow Rate FiO2 03/26/17 09:40 Room Air 03/26/17 08:00 77 03/26/17 04:00 82 03/26/17 04:00 98.3 76 18 136/73 (94) 95 03/26/17 00:00 77 03/26/17 00:00 97.8 88 18 130/65 (86) 94 03/25/17 20:30 82 03/25/17 20:30 Room Air 03/25/17 20:00 98.4 75 18 130/66 (87) 94 03/25/17 17:57 Room Air 03/25/17 16:00 65 03/25/17 16:00 97.8 73 18 136/75 (95) 95 03/25/17 12:45 79 03/25/17 12:26 Room Air 03/25/17 12:00 98.3 74 18 136/66 (89) 96 Laboratory Tests Test 03/24/17 13:50 03/25/17 07:10 White Blood Count 8.3 TH/MM3 9.6 TH/MM3 Red Blood Count 4.17 MIL/MM3 4.39 MIL/MM3 Hemoglobin 13.2 GM/DL 13.8 GM/DL Hematocrit 39.1 % 40.7 % Mean Corpuscular Volume 93.7 FL 92.8 FL Mean Corpuscular Hemoglobin 31.6 PG 31.5 PG Mean Corpuscular Hemoglobin Concent 33.7 % 34.0 % Red Cell Distribution Width 13.2 % 13.6 % Platelet Count 273 TH/MM3 285 TH/MM3 Mean Platelet Volume 7.5 FL 7.7 FL Neutrophils (%) (Auto) 65.8 % Lymphocytes (%) (Auto) 26.7 % Monocytes (%) (Auto) 6.7 % Eosinophils (%) (Auto) 0.6 % Basophils (%) (Auto) 0.2 % Neutrophils # (Auto) 6.3 TH/MM3 Lymphocytes # (Auto) 2.6 TH/MM3 Monocytes # (Auto) 0.6 TH/MM3 Eosinophils # (Auto) 0.1 TH/MM3 Basophils # (Auto) 0.0 TH/MM3 CBC Comment AUTO DIFF Differential Total Cells Counted 100 Neutrophils % (Manual) 80 % Band Neutrophils % 2 % Lymphocytes % 15 % Monocytes % 1 % Basophils % 1 % Neutrophils # (Manual) 8.0 TH/MM3 Promyelocytes 1 % Differential Comment FINAL DIFF MANUAL Atypical Lymphocytes % Toxic Granulation 1+ Platelet Estimate NORMAL Platelet Morphology Comment NORMAL Laboratory Tests Test 03/24/17 12:20 03/25/17 07:10 Blood Urea Nitrogen 12 MG/DL 10 MG/DL Creatinine 0.64 MG/DL 0.74 MG/DL Random Glucose 122 MG/DL 88 MG/DL Calcium Level 8.0 MG/DL 8.5 MG/DL Sodium Level 141 MEQ/L 138 MEQ/L Potassium Level 4.1 MEQ/L 3.9 MEQ/L Chloride Level 107 MEQ/L 102 MEQ/L Carbon Dioxide Level 25.5 MEQ/L 28.4 MEQ/L Anion Gap 9 MEQ/L 8 MEQ/L Estimat Glomerular Filtration Rate 127 ML/MIN 107 ML/MIN Total Protein 6.9 GM/DL Albumin 2.0 GM/DL Phosphorus Level 2.9 MG/DL Magnesium Level 2.1 MG/DL Alkaline Phosphatase 74 U/L Aspartate Amino Transf (AST/SGOT) 71 U/L Alanine Aminotransferase (ALT/SGPT) 62 U/L Total Bilirubin 0.4 MG/DL PHYSICAL EXAMINATION No acute distress. Awake and alert and oriented. HEENT: Head is atraumatic. Extraocular movements grossly intact, pupils reactive to light. No icterus. Oropharynx: no lesions. NECK: Supple without adenopathy. Lungs: Clear breath sounds. Heart: Regular rate and rhythm without murmurs, rubs or gallops. Abdomen: Obese, soft, no tenderness appreciated. Extremities: Multiple excoriated coin lesions at the arms and legs around the tibia. The left leg has confluent erythema which is less erythematous circumferentially and also involving the left tibia and proximal aspect of the left foot around the ankle. There is a lesser degree of erythema at the right tibia. IMPRESSION 1. Cellulitis of the legs with the left very much more prominent than the right side. Poor response to prior antibiotic treatment. 2. Allergic to cephalexin. 3. Sepsis which appears under control with treatment. RECOMMENDATIONS 1. Continue Unasyn. 2. Monitor response to the Unasyn. If he shows continued response tomorrow he can be discharged on PO Augmentin x 10 days. Jake De La Garza MD Mar 26, 2017 11:54
[2017-03-26 12:07] LABS: HEPATITIS A AB IGM NEGATIVE (NEGATIVE); HEPATITIS B CORE AB IGM NEGATIVE (NEGATIVE); HEPATITIS B SURFACE ANTIGEN NEGATIVE (NEGATIVE); HEPATITIS C AB IgG NEGATIVE (NEGATIVE)
--- NOTE | 2017-03-26 18:45 | HHI.PR ---
Subjective Remarks deferred entry. Diarrhea this am. Denies fevers or chills. Objective Vitals Vital Signs Date Time Temp Pulse Resp B/P (MAP) Pulse Ox O2 Delivery O2 Flow Rate FiO2 03/26/17 16:27 83 03/26/17 16:00 98.1 84 18 138/69 (92) 95 03/26/17 12:00 88 03/26/17 12:00 98.1 84 18 133/67 (89) 93 03/26/17 09:40 Room Air 03/26/17 08:00 97.8 79 16 119/66 (83) 94 03/26/17 08:00 77 03/26/17 04:00 82 03/26/17 04:00 98.3 76 18 136/73 (94) 95 03/26/17 00:00 77 03/26/17 00:00 97.8 88 18 130/65 (86) 94 03/25/17 20:30 82 03/25/17 20:30 Room Air 03/25/17 20:00 98.4 75 18 130/66 (87) 94 I/O 03/25/17 03/25/17 03/25/17 03/26/17 03/26/17 03/26/17 07:00 15:00 23:00 07:00 15:00 23:00 Intake Total 240 ml 820 ml Output Total 300 ml Balance -60 ml 820 ml Intake Oral 240 ml 720 ml IV Total 100 ml Output Urine Total 300 ml # Voids 5 2 # Bowel Movements 1 2 Result Diagram: 03/25/17 0710 03/25/17 0710 Imaging Last Impressions Chest X-Ray 03/20/17 195 Signed Impressions: Service Date/Time: Monday, March 20, 2017 20:06 - CONCLUSION: The lungs are clear. James Curtis MD Head CT 03/20/17 0000 Signed Impressions: Service Date/Time: Monday, March 20, 2017 22:19 - CONCLUSION: 1. Negative noncontrast CT brain. James Curtis MD Objective Remarks AAOx3 CLear lungs BL S1S2 RRR abdomen obese, soft, non tender non distended Left lower extremity is erythematous, mild tender to palpation with edema and swelling. Procedures None Medications and IVs Current Medications Medications (Trade) Dose Ordered Sig/[place] Route Start Time Stop Time Status Last Admin (NS Flush) 2 ml UNSCH PRN IV FLUSH 03/20/17 22:30 (NS Flush) 2 ml BID IV FLUSH 03/21/17 09:00 03/26/17 07:58 (Zofran Inj) 4 mg Q6H PRN IVP 03/20/17 22:30 03/25/17 09:18 (Heparin Inj) 5,000 units Q12H SQ 03/21/17 09:00 03/26/17 07:58 (Tylenol) 650 mg Q6H PRN PO 03/20/17 22:30 ([place] 5-325 Mg) 1 tab Q4H PRN PO 03/20/17 22:30 (Evelyn-Colace) 1 tab BID PO 03/21/17 09:00 03/24/17 08:53 (Milk Of Magnesia Liq) 30 ml Q12H PRN PO 03/20/17 22:30 (Senokot) 17.2 mg Q12H PRN PO 03/20/17 22:30 (Dulcolax Supp) 10 mg DAILY PRN RECTAL 03/20/17 22:30 (Lactulose Liq) 30 ml DAILY PRN PO 03/20/17 22:30 ([place] 10-325 Mg) 1 tab Q4H PRN PO 03/20/17 22:30 03/21/17 09:09 (Wellbutrin) 150 mg HS PO 03/21/17 21:00 03/25/17 21:42 (Geodon) 120 mg HS PO 03/21/17 21:00 03/25/17 21:38 Ampicillin Sodium/ Sulbactam Sodium 3 gm/Sodium Chloride 100 ml @ 200 mls/hr Q6H IV 03/25/17 18:30 03/26/17 16:49 A/P Problem List: (1) Sepsis ICD Code: A41.9 - Sepsis, unspecified organism (2) Cellulitis ICD Code: L03.90 - Cellulitis, unspecified Status: Acute (3) Cerebral palsy ICD Code: G80.9 - Cerebral palsy, unspecified Status: Chronic (4) Fall ICD Code: W19.XXXA - Unspecified fall, initial encounter Assessment and Plan 1. Severe sepsis with cellulitis of bilateral lower extremities worse on the left. One aerobic bottle with gram-positive cocci the other with coag negative and strep likely secondary to cellulitis. Continue broad-spectrum IV antibiotics with vancomycin and aztreonam. Follow-up blood culture final results and consider ID consult 03/24 Suspect blood culture findings likely contaminants. Continue IV antibiotics. Patient currently on IV vancomycin and IV Aztreonam. Discontinue IV vancomycin, will start on IV Levaquin and continue aztreonam. Will start on Lactobacilus Acidophilus to prevent C diff. 03/25 Continue IV antibiotics, Consult ID. 03/26 appreciate ID recommendations. IV Levaquin and Aztreonam discontinued. Started on Unasyn. 2. Elevated AST likely secondary to sepsis and rhabdomyolisis. 03/24 CK on admission was 3276, treated with IV fluids and trending down. AST initially trended up from 58-84, now trending down to 64. Check hepatitis profile if not previously done. 03/26 hep profile negative. Rhabdomyolysis resolved. 3. HEENA with hypokalemia. Improved discontinue IV hydration. Replace electrolytes accordingly. Avoid nephrotoxins 03/24 soft after IV fluid administration. AKA likely due to prerenal azotemia due to the hydration. IV fluids discontinued. Hypokalemia resolved after repletion. Continue to monitor BMP. 4. Cerebral Palsy: At baseline. Patient with mild developmental delay. 5. Fall: s/p mechanical trip and fall, reports multiple falls in last few days w/ associated dizziness, likely secondary to acute infection/dehydration. CT Head w/ no acute findings, images reviewed by me. No other injuries noted. PT recommended home health care versus rehabilitation patient prefers to be discharged to [facility]. 6. Rhabdomyolysis status post fall. Improved after IV fluid administration. 7. Hyponatremia: Resolved after IVF administration. Monitor BMP. 8. diarrhea: Patient at risk for C diff. Check stool for C diff PCR. Place on contact isolation until this is ruled out. DVT Prophylaxis: Heparin sq Discharge Planning Continue to monitor in the medical floor. Anticipate discharge in 1-2 days pending clinical improvement of cellulitis. Problem Qualifiers (1) Sepsis: Qualified Codes: A41.9 - Sepsis, unspecified organism (2) Cellulitis: Qualified Codes: L03.116 - Cellulitis of left lower limb (3) Cerebral palsy: Qualified Codes: G80.9 - Cerebral palsy, unspecified (4) Fall: Qualified Codes: W19.XXXD - Unspecified fall, subsequent encounter Adam Ballesteros MD Mar 26, 2017 18:45
[2017-03-26] MEDS: buPROPion HCL 100 MG TAB PO SCH (21:37)
[2017-03-26] MEDS: ZIPRASIDONE HCL 60 MG CAP PO SCH (21:38)
[2017-03-27] VITALS: PULSE 79
[2017-03-27 00:03] VITALS: BP 132/65; PULSE 84; RESP 18; TEMP 99.4; O2SAT 96
[2017-03-27] MEDS: AMPICILLIN-SULBACTAM INJ 3 GM in SODIUM CHLORIDE 0.9% INJ 100 ML IV SCH ×3 (00:56→12:30)
[2017-03-27 04:00] VITALS: PULSE 75
[2017-03-27 04:48] VITALS: BP 164/73; PULSE 88; RESP 18; TEMP 98.5; O2SAT 95
[2017-03-27] MEDS: ONDANSETRON HCL 4 MG/2 ML VIAL IVP PRN (06:30)
[2017-03-27 08:00] VITALS: BP 140/78; PULSE 72; PULSE 73; RESP 21; TEMP 98.4; O2SAT 96
[2017-03-27] MEDS: SODIUM CHLORIDE 0.9% FLUSH 10 ML FLUSH IV FLUSH SCH (08:51)
[2017-03-27] MEDS: DOCUSATE SODIUM 50 MG/SENNA 8.6 MG TAB PO SCH (08:51)
[2017-03-27] MEDS: HEPARIN SODIUM - SQ 10,000 UNITS/ML VIAL SQ SCH (08:54)
[2017-03-27 12:00] VITALS: BP 116/57; PULSE 73; RESP 20; TEMP 98.5; O2SAT 95
--- NOTE | 2017-03-27 12:11 | HHI.DS ---
Discharge Summary Admission Date Mar 20, 2017 at 22:19 Discharge Date: Mar 27, 2017 Admitting Diagnosis sepsis, BLE cellulitis (1) Sepsis ICD Code: A41.9 - Sepsis, unspecified organism Diagnosis: Principal Status: Resolved (2) Cellulitis ICD Code: L03.90 - Cellulitis, unspecified Diagnosis: Principal Status: Acute (3) Cerebral palsy ICD Code: G80.9 - Cerebral palsy, unspecified Diagnosis: Principal Status: Chronic (4) Fall ICD Code: W19.XXXA - Unspecified fall, initial encounter Diagnosis: Principal (5) HEENA (acute kidney injury) ICD Code: N17.9 - Acute kidney failure, unspecified Diagnosis: Principal Status: Resolved (6) Diarrhea ICD Code: R19.7 - Diarrhea, unspecified Diagnosis: Principal Status: Resolved Procedures None Brief History - From Admission This is a 61-year-old male with PMH of Anxiety, Depression, HTN, Hyperlipidemia and Cerebral Palsy was brought to the ER by EMS secondary to fall at home while getting out of the shower. Denies LOC or head trauma, but reports significant dizziness/lightheadedness. Also reports cough, generalized weakness and subjective fever/chills at home. On arrival, BP 142/68, HR 103, O2 sat 95% on RA, Temp 101.8. WBC 19.3, bandemia 13%. Creatinine 1.52, previously 1.23 on . Lactic Acid 3.1. INR 1.3. UA negative. CXR with no acute findings. CT Head negative. On exam, patient noted to have lower extremity cellulitis bilaterally. S/p Blood Cultures/Clinda IV in ER. CBC/BMP: 03/25/17 0710 03/25/17 0710 Significant Findings Laboratory Tests Test 03/24/17 12:20 03/24/17 13:50 03/25/17 07:10 03/26/17 07:51 Random Glucose 122 MG/DL (74-106) Calcium Level 8.0 MG/DL (8.5-10.1) Red Blood Count 4.17 MIL/MM3 (4.50-5.90) 4.39 MIL/MM3 (4.50-5.90) Neutrophils % (Manual) 80 % (16-70) Neutrophils # (Manual) 8.0 TH/MM3 (1.8-7.7) Promyelocytes 1 % (0-0) Toxic Granulation 1+ (NORMAL) Albumin 2.0 GM/DL (3.4-5.0) Aspartate Amino Transf (AST/SGOT) 71 U/L (15-37) Test 03/27/17 06:45 Imaging Last Impressions Chest X-Ray 03/20/17 195 Signed Impressions: Service Date/Time: Monday, March 20, 2017 20:06 - CONCLUSION: The lungs are clear. James Curtis MD Head CT 03/20/17 0000 Signed Impressions: Service Date/Time: Monday, March 20, 2017 22:19 - CONCLUSION: 1. Negative noncontrast CT brain. James Curtis MD PE at Discharge AAOx3 CLear lungs BL S1S2 RRR abdomen obese, soft, non tender non distended Left lower extremity is erythematous, mild tender to palpation with edema and swelling. Pt update on day of discharge Denies fevers or chills. Denies cp/sob. Leg is less swollen and erythematous. Hospital Course 1. Severe sepsis with cellulitis of bilateral lower extremities worse on the left. Was initially started on IV vancomycin, aztreonam and IV Levaquin. ID consulted recommended switching antibiotics to Unasyn. The patient was also started on Lactobacillus acidophilus to prevent C. difficile diarrhea. Blood cultures were negative 5 days. 2. Elevated AST likely secondary to sepsis and rhabdomyolisis. CK on admission was 3276, treated with IV fluids. Hepatitis profile ordered for elevated AST and negative. Rhabdomyolysis resolved prior to discharge. 3. HEENA with hypokalemia. Treated with IV fluids. Resolved after IV fluid administration. BUN creatinine monitored throughout hospital stay. Electrolytes also monitor and replace as needed. Patient acute kidney injury likely secondary to prerenal azotemia due to dehydration. Hypokalemia resolved after replacement. 4. Cerebral Palsy: Chronic, At baseline. Patient with mild developmental delay. 5. Fall: s/p mechanical trip and fall, reports multiple falls in last few days w/ associated dizziness, likely secondary to acute infection/dehydration. CT Head w/ no acute findings, images reviewed by me. No other injuries noted. PT recommended home health care versus rehabilitation patient prefers to be discharged to [facility]. 6. Rhabdomyolysis status post fall. Improved after IV fluid administration. 7. Hyponatremia: Resolved after IVF administration. Monitor BMP. 8. diarrhea: C. difficile negative. Diarrhea resolved. DVT Prophylaxis: Heparin sq Pt Condition on Discharge: Stable Discharge Disposition: Discharge to SNF Discharge Time: > 30 minutes Discharge Instructions DIET: Follow Instructions for: As Tolerated, No Restrictions Activities you can perform: Regular-No Restrictions Activities to Avoid: Contact Sports, Prolonged Standing, Strenuous Activity Follow up Referrals: PCP Follow-up - 1 Week New Medications: Amoxicillin-Clavulanate (Augmentin) 875-125 Mg Tab 1 TAB PO BID for Infection, #20 TAB 0 Refills Hydrocodone/Acetaminophen (Hydrocodone-Acetamin 10-325 mg) 10 Mg-325 Mg Tablet 1 TAB PO Q6H PRN for PAIN 6-10, #28 TAB Continued Medications: Bupropion HCl (Bupropion HCl) 100 Mg Tab 150 MG PO HS for Control Depression, TAB 0 Refills Ziprasidone (Ziprasidone) 60 Mg Cap 120 MG PO HS, #60 CAP 0 Refills Adam Ballesteros MD Mar 27, 2017 12:11
[2017-03-27] MEDS ORDERED: AUGM875T3 PO (12:57)
== END 2017-03-27 15:05 | disposition home health service (06) | DRG 872 ==
LOC: NEPE 18:12 → NEDA 22:19 → N04B 23:17
PROVIDERS: ADMIT Hospitalist; ATTEND Hospitalist
DX: A41.9 Sepsis, unspecified organism (principal); N17.9 Acute kidney failure, unspecified; M62.82 Rhabdomyolysis; Z68.41 Body mass index [BMI] 40.0-44.9, adult; E87.1 Hypo-osmolality and hyponatremia; E66.01 Morbid (severe) obesity due to excess calories; L03.115 Cellulitis of right lower limb; L03.116 Cellulitis of left lower limb; R65.20 Severe sepsis without septic shock; E87.6 Hypokalemia; E86.0 Dehydration; G80.9 Cerebral palsy, unspecified; R62.59 Other lack of expected normal physiological development in childhood; W01.0XXA Fall on same level from slipping, tripping and stumbling without subsequent striking against object, initial encounter; Y92.002 Bathroom of unspecified non-institutional (private) residence as the place of occurrence of the external cause; R29.6 Repeated falls; R19.7 Diarrhea, unspecified; F41.9 Anxiety disorder, unspecified; F32.9 Major depressive disorder, single episode, unspecified; I10 Essential (primary) hypertension; E78.5 Hyperlipidemia, unspecified; Z96.653 Presence of artificial knee joint, bilateral
CPT/HCPCS: 70450; 71010; 76937; 80048; 80053; 80074; 80202; 81001; 82550; 82552; 83605; 83735; 84100; 85007; 85025; 85027; 85610; 85730; 86403; 87040; 87205; 87493; 96361; 96374; J0295; J1644; J1956; J2405; J3370; J3480; J7030; J7040

== ENCOUNTER 2017-03-29 13:09 | Inpatient (IN) | payer MEDICARE, MEDICAID ==
[~2017-03-29] VITALS: Ht 172.7 cm; Wt 104.0 kg
[~2017-03-29 13:09] MED LIST changes: +AUGM875T3 PO; +HYDR-3583 PO
[2017-03-29 13:23] VITALS: BP 146/92; PULSE 82; RESP 18; TEMP 98.4; O2SAT 99
[2017-03-29] MEDS ORDERED: PIPERACIL-TAZO 3.375 GM PREMIX 50 ML IV ONE (13:30)
[2017-03-29] MEDS ORDERED: HYDR50CA PO (13:32)
[2017-03-29 13:44] VITALS: RESP 18; O2SAT 98
[2017-03-29] MEDS ORDERED: AMPICILLIN-SULBACTAM INJ 3 GM in SODIUM CHLORIDE 0.9% INJ 100 ML IV ONE (13:45)
[2017-03-29] MEDS ORDERED: SODIUM CHLOR 0.9% 1000 ML INJ 1,000 ML IV ONE (13:45)
[2017-03-29 13:56] LABS: AUTOMATED NEUTROPHIL # 7.5 TH/MM3 (1.8-7.7); BASOPHIL % 0.3 % (0.0-2.0); EOSINOPHIL % 0.3 % (0.0-4.0); HEMATOCRIT 44.8 % (39.0-51.0); HEMOGLOBIN 15.4 GM/DL (13.0-17.0); LYMPH % 24.7 % (9.0-44.0); LYMPHOCYTE # 2.8 TH/MM3 (1.0-4.8); MEAN CELL VOLUME 92.3 FL (80.0-100.0); MEAN CORPUSCULAR HEMOGLOBIN 31.9 PG (27.0-34.0); MEAN CORPUSCULAR HGB CONC 34.5 % (32.0-36.0); MEAN PLATELET VOLUME 6.9 FL (7.0-11.0); MONO % 7.4 % (0.0-8.0); MONOCYTE # 0.8 TH/MM3 (0-0.9); NEUT % 67.3 % (16.0-70.0); PLATELET COUNT 414 TH/MM3 (150-450); RED BLOOD COUNT 4.85 MIL/MM3 (4.50-5.90); RED CELL DISTRIBUTION WIDTH 13.6 % (11.6-17.2); WHITE BLOOD COUNT 11.2 TH/MM3 (4.0-11.0)
[2017-03-29 14:15] LABS: BICARBONATE 32.6 MEQ/L (21.0-32.0); C-REACTIVE PROTEIN 5.36 MG/DL (0.00-0.30); CALCIUM 9.1 MG/DL (8.5-10.1); CREATININE 1.21 MG/DL (0.60-1.30); MAGNESIUM 2.4 MG/DL (1.5-2.5)
--- NOTE | 2017-03-29 14:15 | RADRPT ---
EXAM DATE/TIME: 03/29/2017 13:44 [facility] COMPARISON: No previous studies available for comparison. INDICATIONS : Left tibia/fibula pain and swelling. MEDICAL HISTORY : Renal calculi. Hypertension. Cerebral palsy. Cellulitis. SURGICAL HISTORY : None. ENCOUNTER: Initial ACUITY: 1 day PAIN SCORE: 8/10 LOCATION: Left tibia/fibula. FINDINGS: There is a total knee prosthesis in place. There is an old healed proximal fibular fracture. An acute fracture is not seen. The ankle is aligned. There is diffuse soft tissue swelling in the superficial fat. CONCLUSION: No acute bony abnormality is seen. Girma Gan MD on March 29, 2017 at 14:12 Board Certified Radiologist. This report was verified electronically.
--- NOTE | 2017-03-29 14:17 | RADRPT ---
EXAM DATE/TIME: 03/29/2017 13:45 [facility] COMPARISON: No previous studies available for comparison. INDICATIONS : Left ankle pain and swelling. MEDICAL HISTORY : Cellulitis. Renal calculi. Hypertension. Cerebral palsy. SURGICAL HISTORY : None. ENCOUNTER: Initial ACUITY: 1 day PAIN SCORE: 8/10 LOCATION: Left ankle. FINDINGS: The ankle is aligned. No fracture is seen. There is soft tissue swelling being most prominent lateral ly. CONCLUSION: Prominent soft tissue swelling. Girma Gan MD on March 29, 2017 at 14:14 Board Certified Radiologist. This report was verified electronically.
--- NOTE | 2017-03-29 14:34 | PD ---
HPI Chief Complaint: Fall Time Seen by Provider: 13:22 Travel History International Travel<30 days: No Contact w/Intl Traveler<30days: No Traveled to known affect area: No History of Present Illness HPI 61-year-old male that presents to the ED for evaluation of fall. Patient came here for evaluation of this. Per patient she had a mechanical fall and fell into his left side. He injured his left knee. She has a history of cerebral palsy and left leg cellulitis. Patient has had surgeries on that leg. Per patient he was discharged on the 28 with oral antibiotics but he has not been able to fill the prescription. Per patient given to a friend who was supposed to give it to him but he has not gotten it yet. Per patient he still has pain and swelling on his left leg. He denies any chest pain or shortness of breath. No head injury. No blood thinner use at this time. Denies any pain in the abdomen. Denies any other injuries. Patient states that his pain is 4 out of 10. He lives alone and apparently has had some home care will he has not had it yet. He has an allergy to cephalexin. He he states having some chills and sweats as well as possible fevers. She has not checked his temperature however. He was recently admitted for the infection of the left leg as well as multiple falls. He currently denies any dizziness or any other injury. PFSH Past Medical History Arthritis: Yes Asthma: No Autoimmune Disease: No Blood Disorders: No Bipolar Disorder: Yes Anxiety: Yes Depression: No Heart Rhythm Problems: No Cancer: No Cardiovascular Problems: Yes (HTN ) Cerebral Palsy: Yes High Cholesterol: Yes Chemotherapy: No Chest Pain: No Congestive Heart Failure: No COPD: No Cerebrovascular Accident: No Developmental Delay: Yes (H/O CP AND ENCEPHALITIS) Diabetes: No Diminished Hearing: No Diverticulitis: Yes Endocrine: No Gastrointestinal Disorders: Yes (DIVERTICULITIS) GERD: Yes Glaucoma: No Genitourinary: No Headaches: No Hepatitis: No Hiatal Hernia: No Heparin Induced Thrombocytopen: No Hypertension: Yes Immune Disorder: No Implanted Vascular Access Dvce: Yes (PT STATES "TWO TOTAL KNEE REPLACEMENTS") Kidney Stones: Yes (WITH LITHOTRIPSY) Musculoskeletal: Yes Neurologic: Yes Psychiatric: Yes Reproductive: No Respiratory: No Immunizations Current: Yes Migraines: No Myocardial Infarction: No Radiation Therapy: No Renal Failure: No Seizures: No Sickle Cell Disease: No Sleep Apnea: No Thyroid Disease: No Ulcer: No PNEUMOCCOCAL Vaccine (Year): 2009 ?: Not Past Surgical History Abdominal Surgery: No AICD: No Appendectomy: No Arteriovenous Shunt: No Cardiac Surgery: No Cholecystectomy: No Ear Surgery: No Endocrine Surgery: No Eye Surgery: No Genitourinary Surgery: No Gynecologic Surgery: No Insulin Pump: No Joint Replacement: Yes (BILATERAL KNEES) Neurologic Surgery: Yes (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, cp as 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, traces now per patient repor) Oral Surgery: No Pacemaker: No Thoracic Surgery: No Tonsillectomy: Yes Other Surgery: Yes Social History Alcohol Use: No Tobacco Use: No Substance Use: No Allergies-Medications (Allergen,Severity, Reaction): Coded Allergies: cephalexin (Unverified Allergy, Severe, RASH, 11/11/16) Reported Meds & Prescriptions Reported Meds & Active Scripts Active Augmentin (Amoxicillin-Clavulanate) 875-125 Mg Tab 1 Tab PO BID Reported Hydroxyzine Pamoate 50 Mg Cap 50 Mg PO HS Bupropion HCl 100 Mg Tab 150 Mg PO HS Ziprasidone 60 Mg Cap 120 Mg PO HS Review of Systems Except as stated in HPI: all other systems reviewed are Neg Physical Exam Narrative GENERAL: SKIN: Warm and dry. HEAD: Atraumatic. Normocephalic. EYES: Pupils equal and round. No scleral icterus. No injection or drainage. ENT: No nasal bleeding or discharge. Mucous membranes pink and moist. Tongue is midline. No uvula deviation. NECK: Trachea midline. No JVD. CARDIOVASCULAR: Regular rate and rhythm. No murmurs, S3, S4. RESPIRATORY: No accessory muscle use. Clear to auscultation. Breath sounds equal bilaterally. GASTROINTESTINAL: Abdomen soft, non-tender, nondistended. Hepatic and splenic margins not palpable. MUSCULOSKELETAL: Extremities without clubbing, cyanosis, or edema. No obvious deformities. Full range of motion of the upper and lower extremity is bilaterally. Patient has erythema and swelling on the left leg. Most of the erythema is on the dorsal aspect of the left foot as well as the medial aspect of the foot. He does appear to have an area of edema to could have some fluid possible early abscess noted. Erythema is about 20 cm in diameter. NEUROLOGICAL: Awake and alert. No obvious cranial nerve deficits. Motor grossly within normal limits. Five out of 5 muscle strength in the arms and legs. Normal speech. PSYCHIATRIC: Appropriate mood and affect; insight and judgment normal. Data Data Last Documented VS Vital Signs Date Time Temp Pulse Resp B/P (MAP) Pulse Ox O2 Delivery O2 Flow Rate FiO2 03/29/17 13:44 18 98 Room Air 03/29/17 13:24 86 03/29/17 13:23 98.4 Orders Orders Complete Blood Count With Diff (03/29/17 13:30) Basic Metabolic Panel (Bmp) (03/29/17 13:30) Blood Culture (03/29/17 13:30) C-Reactive Protein (Crp) (03/29/17 13:30) Magnesium (Mg) (03/29/17 13:30) Iv Access Insert/Monitor (03/29/17 13:30) Ecg Monitoring (03/29/17 13:30) Oximetry (03/29/17 13:30) Ankle, Complete ([id number]) (03/29/17 13:30) Tibia/Fibula (Ap/Lat) (03/29/17 13:30) Piperacil-Tazo 3.375 Gm Premix (Zosyn 3. (03/29/17 13:30) Lactic Acid Sepsis Protocol (03/29/17 13:33) Ampicillin-Sulbactam Inj (Unasyn Inj) (03/29/17 13:45) Sodium Chlor 0.9% 1000 Ml Inj (Ns 1000 M (03/29/17 13:45) Knee, Complete (4vws) (03/29/17 ) Morphine Inj (Morphine Inj) (03/29/17 15:00) Ondansetron Inj (Zofran Inj) (03/29/17 15:00) Morphine Inj (Morphine Inj) (03/29/17 15:15) Admit Order (Ed Use Only) (03/29/17 15:32) Labs Laboratory Tests Test 03/29/17 13:36 White Blood Count 11.2 TH/MM3 Red Blood Count 4.85 MIL/MM3 Hemoglobin 15.4 GM/DL Hematocrit 44.8 % Mean Corpuscular Volume 92.3 FL Mean Corpuscular Hemoglobin 31.9 PG Mean Corpuscular Hemoglobin Concent 34.5 % Red Cell Distribution Width 13.6 % Platelet Count 414 TH/MM3 Mean Platelet Volume 6.9 FL Neutrophils (%) (Auto) 67.3 % Lymphocytes (%) (Auto) 24.7 % Monocytes (%) (Auto) 7.4 % Eosinophils (%) (Auto) 0.3 % Basophils (%) (Auto) 0.3 % Neutrophils # (Auto) 7.5 TH/MM3 Lymphocytes # (Auto) 2.8 TH/MM3 Monocytes # (Auto) 0.8 TH/MM3 Eosinophils # (Auto) 0.0 TH/MM3 Basophils # (Auto) 0.0 TH/MM3 CBC Comment DIFF FINAL Differential Comment Blood Urea Nitrogen 18 MG/DL Creatinine 1.21 MG/DL Random Glucose 96 MG/DL Calcium Level 9.1 MG/DL Magnesium Level 2.4 MG/DL Sodium Level 135 MEQ/L Potassium Level 4.6 MEQ/L Chloride Level 99 MEQ/L Carbon Dioxide Level 32.6 MEQ/L Anion Gap 3 MEQ/L Estimat Glomerular Filtration Rate 61 ML/MIN Lactic Acid Level 1.3 mmol/L C-Reactive Protein 5.36 MG/DL MDM Medical Decision Making Medical Screen Exam Complete: Yes Emergency Medical Condition: Yes Medical Record Reviewed: Yes Interpretation(s) CBC & BMP Diagram 03/29/17 13:36 Calcium Level 9.1, Magnesium Level 2.4 Last Impressions Tibia/Fibula X-Ray 03/29/17 1330 Signed Impressions: Service Date/Time: Wednesday, March 29, 2017 13:44 - CONCLUSION: No acute bony abnormality is seen. Girma Gan MD Ankle X-Ray 03/29/17 1330 Signed Impressions: Service Date/Time: Wednesday, March 29, 2017 13:45 - CONCLUSION: Prominent soft tissue swelling. Girma Gan MD Knee X-Ray 03/29/17 0000 Signed Impressions: Service Date/Time: Wednesday, March 29, 2017 14:49 - CONCLUSION: Intact total hip prosthesis for technique. K. Karan Villatoro MD Differential Diagnosis Cellulitis versus failed outpatient treatment versus noncompliance versus kidney injury versus dehydration versus fall versus fracture Narrative Course 61-year-old male that presents to the ED for evaluation of fall. Patient was properly examined and was found to have signs and symptoms consistent with appears to be consistent with infection of the left leg as well as fall. X- rays were ordered. Labs and imaging showed elevated levels account. Other was unremarkable. Patient was reassured. This time I do recommend admission for further evaluation of the cellulitis. Patient is noncompliant in to me at the solids appears to be worsening. Per patient also he believes that this will ice his worsening complaining of subjective fevers and chills. He is noncompliant. Because of this and the recommend admission for FOR IV antibiotics. Case was discussed with my attending Dr. Pablo who was made aware of findings and agrees with plan. Case discussed with Dr. Holland who agrees to admission. Diagnosis Primary Impression: Cellulitis Qualified Codes: L03.116 - Cellulitis of left lower limb Admitting Information Admitting Physician Requests: Observation Alireza Palacio Mar 29, 2017 14:34
[2017-03-29] MEDS ORDERED: ONDANSETRON HCL 4 MG/2 ML VIAL IV PUSH ONE (15:00)
[2017-03-29] MEDS ORDERED: MORPHINE SULFATE 4 MG/ML INJ IV PUSH ONE (15:00)
[2017-03-29] MEDS ORDERED: MORPHINE SULFATE 2 MG/ML INJ IV PUSH ONE (15:15)
--- NOTE | 2017-03-29 15:22 | RADRPT ---
EXAM DATE/TIME: 03/29/2017 14:49 [place]RE[place] Corrected on: March 30, 2017; [facility] COMPARISON: No previous studies available for comparison. INDICATIONS : Pain from fall. MEDICAL HISTORY : None. SURGICAL HISTORY : Knee replacement. ENCOUNTER: Initial ACUITY: 1 day PAIN SCORE: 7/10 LOCATION: Left knee. FINDINGS: The bony arthroplasty is present and there is no evidence of loosening or fracture, however the tibia l component appears dislocated posteriorly with respect to the femoral component. There is old healed fracture of proximal fibula. CONCLUSION: There is dislocation of the femoral tibial components the tibial component displaced posteriorly with respect to the femoral component. Riki Villatoro MD on March 30, 2017 at 15:24 Board Certified Radiologist. This report was verified electronically.
[2017-03-29] MEDS ORDERED: NALOXONE HCL 0.4 MG/ML AMP IV PUSH PRN (15:45)
[2017-03-29] MEDS ORDERED: SODIUM CHLORIDE 0.9% FLUSH 10 ML FLUSH IV FLUSH PRN (15:45)
--- NOTE | 2017-03-29 15:58 | HHI.HP ---
[facility] No Primary Care Physician Admission Diagnosis left leg cellulitis, worse from previous, non compliant Diagnoses: Travel History International Travel<30 Days: No Contact w/Intl Traveler <30 Da: No Traveled to Known Affected Are: No History of Present Illness History from patient, ER PA communication, and review of medical records. Patient was recently discharged from our hospital on March 27, 2017. He was managed from March 20, 2017 to March 27, 2017 here for left lower extremity cellulitis. He was discharged home with home health care and orders to continue Augmentin as outpatient. Patient reported that today, while he was sitting on his chair, he fell face forward trying to get up from the chair. He denies any syncopal episodes. Denies any premonitory symptoms prior to the fall. However he stated that after the fall, he was not able to get up. He was quite short of breath as well. He reports of a little bit of nausea after the fall. Patient reports of diarrhea for at least the past 1 week. He stated it was ever since he came in for cellulitis. Reports diarrhea was foul-smelling, black in color. Again, patient stated his stool has been black for a long time. He is not on iron pills at home. He states he lives on his own. He has not filled his prescriptions for antibiotics. He states his friend was supposed to get it and has not brought him home. Denies being on blood thinners at home. Review of Systems Except as stated in HPI: all other systems reviewed are Neg Past Family Social History Past Medical History htn copd/emphysema not on oxygen cerebral palsy Past Surgical History bilateral knee replaced Allergies: Coded Allergies: cephalexin (Unverified Allergy, Severe, RASH, 11/11/16) Family History mom bowel obstruction Social History used to smoke, quit 10days ago denies drinking etoh or drug abuse Physical Exam Vital Signs Vital Signs Date Time Temp Pulse Resp B/P (MAP) Pulse Ox O2 Delivery O2 Flow Rate FiO2 03/29/17 13:44 18 98 Room Air 03/29/17 13:24 86 18 99 Room Air 03/29/17 13:23 98.4 82 18 146/92 (110) 99 Room Air Physical Exam GENERAL: This is a well-nourished, well-developed patient, in no apparent distress. SKIN: LLE with erythema, warmth from toes all the way up to knees HEAD: Atraumatic. Normocephalic. No temporal or scalp tenderness. EYES: No scleral icterus. No injection or drainage. ENT: Nose without bleeding, purulent drainage or septal hematomae. Airway patent. NECK: Trachea midline. No JVD . Supple, nontender, no meningeal signs. CARDIOVASCULAR: Regular rate and rhythm without murmurs, gallops, or rubs. RESPIRATORY: Clear to auscultation. Breath sounds equal bilaterally. No wheezes , rales, or rhonchi. GASTROINTESTINAL: Abdomen soft, non-tender, nondistended. No guarding. MUSCULOSKELETAL: Extremities without clubbing, cyanosis. LLE shorter than the left, left knee with swelling and pain, severe pain on movement NEUROLOGICAL: Awake and alert. Normal speech. Laboratory Laboratory Tests Test 03/29/17 13:36 White Blood Count 11.2 Red Blood Count 4.85 Hemoglobin 15.4 Hematocrit 44.8 Mean Corpuscular Volume 92.3 Mean Corpuscular Hemoglobin 31.9 Mean Corpuscular Hemoglobin Concent 34.5 Red Cell Distribution Width 13.6 Platelet Count 414 Mean Platelet Volume 6.9 Neutrophils (%) (Auto) 67.3 Lymphocytes (%) (Auto) 24.7 Monocytes (%) (Auto) 7.4 Eosinophils (%) (Auto) 0.3 Basophils (%) (Auto) 0.3 Neutrophils # (Auto) 7.5 Lymphocytes # (Auto) 2.8 Monocytes # (Auto) 0.8 Eosinophils # (Auto) 0.0 Basophils # (Auto) 0.0 CBC Comment DIFF FINAL Differential Comment Blood Urea Nitrogen 18 Creatinine 1.21 Random Glucose 96 Calcium Level 9.1 Magnesium Level 2.4 Sodium Level 135 Potassium Level 4.6 Chloride Level 99 Carbon Dioxide Level 32.6 Anion Gap 3 Estimat Glomerular Filtration Rate 61 Lactic Acid Level 1.3 C-Reactive Protein 5.36 Date/Time Source Procedure Growth Status 03/29/17 13:36 Blood Peripheral Aerobic Blood Culture Pending Received 03/29/17 13:36 Blood Peripheral Anaerobic Blood Culture Pending Received Result Diagram: 03/29/17 1336 03/29/17 1336 Imaging Last 48 hours Impressions Tibia/Fibula X-Ray 03/29/17 1330 Signed Impressions: Service Date/Time: Wednesday, March 29, 2017 13:44 - CONCLUSION: No acute bony abnormality is seen. Girma Gan MD Ankle X-Ray 03/29/17 1330 Signed Impressions: Service Date/Time: Wednesday, March 29, 2017 13:45 - CONCLUSION: Prominent soft tissue swelling. Girma Gan MD Knee X-Ray 03/29/17 0000 Signed Impressions: Service Date/Time: Wednesday, March 29, 2017 14:49 - CONCLUSION: Intact total hip prosthesis for technique. Riki Villatoro MD Capkarli VTE Risk Assessment Caprini VTE Risk Assessment: Mod/High Risk (score >= 2) Caprini Risk Assessment Model Point Value = 1 Point Value = 2 Point Value = 3 Point Value = 5 Age 41-60 Minor surgery BMI > 25 kg/m2 Swollen legs Varicose veins or History of unexplained or recurrent spontaneous Oral contraceptives or hormone replacement Sepsis (< 1 month) Serious lung disease, including pneumonia (< 1 month) Abnormal pulmonary function Acute myocardial infarction Congestive heart failure (< 1 month) History of inflammatory bowel disease Medical patient at bed rest Age 61-74 Arthroscopic surgery Major open surgery (> 45 min) Laparoscopic surgery (> 45 min) Malignancy Confined to bed (> 72 hours) Immobilizing plaster cast Central venous access Age >= 75 History of VTE Family history of VTE Factor V Leiden Prothrombin [id number] Lupus anticoagulant Anticardiolipin antibodies Elevated serum homocysteine Heparin-induced thrombocytopenia Other congenital or acquired thrombophilia Stroke (< 1 month) Elective arthroplasty Hip, pelvis, or leg fracture Acute spinal cord injury (< 1 month) Prophylaxis Regimen Total Risk Factor Score Risk Level Prophylaxis Regimen 0-1 Low Early ambulation 2 Moderate Order ONE of the following: *Sequential Compression Device (SCD) *Heparin 5000 units SQ BID 3-4 Higher Order ONE of the following medications: *Heparin 5000 units SQ TID *Enoxaparin/Lovenox 40 mg SQ daily (WT < 150 kg, CrCl > 30 mL/min) *Enoxaparin/Lovenox 30 mg SQ daily (WT < 150 kg, CrCl > 10-29 mL/min) *Enoxaparin/Lovenox 30 mg SQ BID (WT < 150 kg, CrCl > 30 mL/min) AND/OR *Sequential Compression Device (SCD) 5 or more Highest Order ONE of the following medications: *Heparin 5000 units SQ TID (Preferred with Epidurals) *Enoxaparin/Lovenox 40 mg SQ daily (WT < 150 kg, CrCl > 30 mL/min) *Enoxaparin/Lovenox 30 mg SQ daily (WT < 150 kg, CrCl > 10-29 mL/min) *Enoxaparin/Lovenox 30 mg SQ BID (WT < 150 kg, CrCl > 30 mL/min) AND *Sequential Compression Device (SCD) Assessment and Plan Assessment and Plan Impression: s/p fall severe left LE pain on movement post fall left LE cellulitis with worsening due to lack of antibiotics for past 2 days groin cellulitis/ milka infecton HTN- not on meds at home Bipolar disorder cerbral palsy. Reports that he has chronically shorter left lower extremity secondary to cerebral palsy. Plan: Pain control. Patient was given Unasyn in ER. Continue Unasyn every [address] Left knee to evaluate further ct home meds for bipolar dx US of LE to r/o DVT - LLE significantly bigger case management consult for discharge planning unsafe discharge to home as pt lives alone, cannot ambulate due to fall and pain , and underlying cerebral palsy will need rehab placement at the minimum informed pt of this dvt prophylaxis with lovenox Discussed Condition With patient, ER PA, nursing staff Fernanda Holland MD Mar 29, 2017 15:58
[2017-03-29] MEDS ORDERED: HYDROmorphone HCL PF 2 MG/ML VIAL IV PUSH PRN ×2 (16:00→20:00)
--- NOTE | 2017-03-29 17:07 | RADRPT ---
EXAM DATE/TIME: 03/29/2017 16:12 [facility] COMPARISON: No previous studies available for comparison. INDICATIONS : Bilateral leg swelling. MEDICAL HISTORY : Hypercholesterolemia. Hypertension. Gastroesophageal reflux disease. Cerebral palsy. Encephalitis. Di verticulitis. Kidney stones. Arthritis. Anxiety. Depression. Bipolar disorder. SURGICAL HISTORY : Tonsillectomy. Bilateral knee replacements. Left ankle surgery. ENCOUNTER: Subsequent ACUITY: 1 month PAIN SCORE: 4/10 LOCATION: Bilateral legs. TECHNIQUE: Venous ultrasound of the left and right leg was performed from the inguinal ligament to the proximal calf. Real-time, color Doppler and spectral tracing, compression and augmentation techniques were us ed. FINDINGS: RIGHT LEG: There is normal compressibility of the deep venous system from the inguinal region to the proximal ca lf. No echogenic clot is seen in the lumen of the common femoral, femoral, popliteal, and posterior tibial veins. There is a normal response of the venous system to proximal and distal augmentation an d respiration. LEFT LEG: There is normal compressibility of the deep venous system from the inguinal region to the proximal ca lf. No echogenic clot is seen in the lumen of the common femoral, femoral, popliteal, and posterior tibial veins. There is a normal response of the venous system to proximal and distal augmentation an d respiration. CONCLUSION: No DVT and there are lymph nodes in the groin bilaterally the largest one on the left measures 3.5 cm in size. Riki Villatoro MD on March 29, 2017 at 17:05 Board Certified Radiologist. This report was verified electronically.
--- NOTE | 2017-03-29 17:24 | RADRPT ---
EXAM DATE/TIME: 03/29/2017 16:56 [place] Corrected on: March 30, 2017; [facility] COMPARISON: No previous studies available for comparison. INDICATIONS : Left knee pain status post fall today. RADIATION DOSE: 11.03 CTDIvol (mGy) MEDICAL HISTORY : Hypertension. cerebral palsy SURGICAL HISTORY : bilateral knee replacement ENCOUNTER: Initial ACUITY: 1 day PAIN SCALE: 10/10 LOCATION: Left knee TECHNIQUE: Volumetric scanning of the knee was performed. Using automated exposure control and adjustment of th e mA and/or kV according to patient size, radiation dose was kept as low as reasonably achievable to obtain optimal diagnostic quality images. DICOM format image data is available electronically for re view and comparison. FINDINGS: There is a tiny joint effusion. The bony arthroplasty is present and there is no evidence for fr acture loosening, however the tibia is dislocated posteriorly with respect to the femoral component w hich is located anteriorly. CONCLUSION: Dislocation of the femoral and tibial components with tibial dislocated posteriorly. Riki Villatoro MD on March 30, 2017 at 15:23 Board Certified Radiologist. This report was verified electronically.
[2017-03-29 20:28] VITALS: BP 124/61; PULSE 98; RESP 20; TEMP 98.8; O2SAT 94
[2017-03-29] MEDS: ZIPRASIDONE HCL 60 MG CAP PO SCH (21:04)
[2017-03-29] MEDS: NYSTATIN 100,000 U/GM PWD 15 GM BTL TOPICAL SCH (21:05)
[2017-03-29] MEDS: buPROPion HCL 150 MG SUSTAINED RELEASE TAB PO SCH (21:05)
[2017-03-29] MEDS: SODIUM CHLORIDE 0.9% FLUSH 10 ML FLUSH IV FLUSH SCH (21:05)
[2017-03-29] MEDS: AMPICILLIN-SULBACTAM INJ 3 GM in SODIUM CHLORIDE 0.9% INJ 100 ML IV SCH (21:06)
[2017-03-29 23:27] VITALS: BP 132/68; PULSE 88; RESP 18; TEMP 98.3; O2SAT 93
[2017-03-29 23:59] VITALS: PULSE 91
[2017-03-30] MEDS: AMPICILLIN-SULBACTAM INJ 3 GM in SODIUM CHLORIDE 0.9% INJ 100 ML IV SCH ×2 (03:20→08:47)
[2017-03-30 03:36] VITALS: BP 124/68; PULSE 87; RESP 18; TEMP 98.4; O2SAT 93
[2017-03-30 04:05] VITALS: PULSE 90
[2017-03-30 04:18] LABS: AUTOMATED NEUTROPHIL # 6.7 TH/MM3 (1.8-7.7); BASOPHIL % 0.3 % (0.0-2.0); EOSINOPHIL % 0.3 % (0.0-4.0); HEMATOCRIT 38.7 % (39.0-51.0); HEMOGLOBIN 13.2 GM/DL (13.0-17.0); LYMPH % 24.3 % (9.0-44.0); LYMPHOCYTE # 2.4 TH/MM3 (1.0-4.8); MEAN CELL VOLUME 93.3 FL (80.0-100.0); MEAN CORPUSCULAR HEMOGLOBIN 31.9 PG (27.0-34.0); MEAN CORPUSCULAR HGB CONC 34.2 % (32.0-36.0); MONO % 6.8 % (0.0-8.0); MONOCYTE # 0.7 TH/MM3 (0-0.9); NEUT % 68.3 % (16.0-70.0); PLATELET COUNT 373 TH/MM3 (150-450); RED BLOOD COUNT 4.14 MIL/MM3 (4.50-5.90); RED CELL DISTRIBUTION WIDTH 13.3 % (11.6-17.2); WHITE BLOOD COUNT 9.8 TH/MM3 (4.0-11.0)
[2017-03-30 04:38] LABS: CREATININE 1.03 MG/DL (0.60-1.30)
[2017-03-30] MEDS: NYSTATIN 100,000 U/GM PWD 15 GM BTL TOPICAL SCH ×2 (05:49→13:20)
[2017-03-30 07:51] VITALS: BP 134/72; PULSE 89; RESP 20; TEMP 98; O2SAT 95
[2017-03-30] MEDS ORDERED: LACTTAB8 PO (08:16)
[2017-03-30] MEDS ORDERED: BACT800T5 PO (08:16)
[2017-03-30] MEDS ORDERED: TRAM50TA PO (08:16)
[2017-03-30] MEDS: SODIUM CHLORIDE 0.9% FLUSH 10 ML FLUSH IV FLUSH SCH ×2 (08:47→21:52)
[2017-03-30] MEDS: ACETAMINOPHEN/HYDROcodone 325 MG/5 MG TAB PO PRN ×2 (08:56→13:20)
[2017-03-30] MEDS: ENOXAPARIN SODIUM 40 MG/0.4 ML SYRINGE SQ SCH (09:00)
[2017-03-30 11:48] VITALS: BP 161/78; PULSE 86; RESP 20; TEMP 98.3; O2SAT 96
--- NOTE | 2017-03-30 14:27 | HHI.PR ---
Subjective Remarks Matt complaint when I see this patient today is left knee pain with difficulty extending the knee. Patient following his knee and a flexed position. Review of imaging is suggestive of subluxation. Comes reviewed with radiology and they agree with this. Consideration for discharge deferred until subluxation is addressed. Objective Vital Signs Date Time Temp Pulse Resp B/P (MAP) Pulse Ox O2 Delivery O2 Flow Rate FiO2 03/30/17 11:48 98.3 86 20 161/78 (105) 96 03/30/17 10:01 20 03/30/17 07:51 98.0 89 20 134/72 (92) 95 03/30/17 04:05 90 03/30/17 03:36 98.4 87 18 124/68 (86) 93 03/29/17 23:59 91 03/29/17 23:27 98.3 88 18 132/68 (89) 93 03/29/17 20:28 98.8 98 20 124/61 (82) 94 I/O 03/29/17 03/29/17 03/29/17 03/30/17 03/30/17 03/30/17 07:00 15:00 23:00 07:00 15:00 23:00 Intake Total 100 ml 100 ml Balance 100 ml 100 ml Intake IV Total 100 ml 100 ml Result Diagram: 03/30/1733103/30/17 0332 Objective Remarks GENERAL: NAD, A&Ox3 HEAD: Normocephalic. NECK: Supple, trachea midline. No lymphadenopathy. EYES: No scleral icterus. No injection or drainage. CARDIOVASCULAR: Regular rate and rhythm without murmurs, gallops, or rubs. RESPIRATORY: Breath sounds equal bilaterally. No accessory muscle use. GASTROINTESTINAL: Abdomen soft, non-tender, nondistended. MUSCULOSKELETAL: No cyanosis, or edema. Tender at left knee with any range of motion, left knee flexed and unable to extend without pain SKIN: Warm and dry. Erythematous left foot and ankle NEURO: No focal neurological deficitis. A/P Problem List: (1) Subluxation of left knee ICD Code: S83.102A - Unspecified subluxation of left knee, initial encounter (2) Cellulitis ICD Code: L03.90 - Cellulitis, unspecified Status: Acute Assessment and Plan 61-year-old male admitted secondary to left foot and ankle cellulitis with outpatient treatment failure. Subluxation of left knee is present secondary to fall. s/p fall Left knee subluxation Orthopedic consult Treat pain as needed Due to frequency of falls and risk for injury, we'll consider detention facility at discharge Left ankle and foot cellulitis Outpatient treatment failure Patient did not obtain Augmentin as prescribed Bactrim Monitor clinically for improvement groin milka infecton Topical nystatin HTN Continue baseline treatments Follow blood pressures Bipolar disorder cerbral palsy Supportive care Change to baseline treatments DVT prophylaxis Lovenox Problem Qualifiers (1) Cellulitis: Qualified Codes: L03.116 - Cellulitis of left lower limb Christopher Freitas MD Mar 30, 2017 14:27
--- NOTE | 2017-03-30 15:40 | PD.CONS ---
cc: Renzo Frankel MD HPI Service Orthopedic Surgeons Consult Requested By ED staff Reason for Consult Left knee subluxation Primary Care Physician No Primary Care Physician Admission Diagnosis left leg cellulitis, worse from previous, non compliant Diagnoses: (1) Subluxation of left knee (2) Obesity (3) Renal insufficiency (4) Cerebral palsy (5) Cellulitis (6) Gastroesophageal reflux disease (7) Hypertension (8) fungal infection Chief Complaint: Left knee pain History of Present Illness This 61-year-old male currently is being treated for cellulitis of the left lower extremity. The patient did have a fall prior to his admission. He was discharged recently and was prescribed antibiotics which she did not fill. He has had a persistence of a cellulitis. He was complaining of left knee pain and an x-ray revealed a subluxation. He is status post a total knee arthroplasty by Dr. Shepherd. The patient states that this has happened on several other occasions which required a reduction with sedation. Review of Systems Reviewed and well outlined in the medical record Past Family Social History Past Medical History htn copd/emphysema not on oxygen cerebral palsy Past Surgical History bilateral knee replaced Allergies: Coded Allergies: cephalexin (Unverified Allergy, Severe, RASH, 11/11/16) Active Ordered Medications Current Medications Medications (Trade) Dose Ordered Sig/[place] Route Start Time Stop Time Status Last Admin (NS Flush) 2 ml UNSCH PRN IV FLUSH 03/29/17 15:45 (NS Flush) 2 ml BID IV FLUSH 03/29/17 21:00 03/30/17 08:47 (Narcan Inj) 0.4 mg UNSCH PRN IV PUSH 03/29/17 15:45 (Wellbutrin Sr) 150 mg HS PO 03/29/17 21:00 03/29/17 21:05 (Vistaril) 50 mg HS PO 03/29/17 21:00 03/29/17 21:05 (Geodon) 120 mg HS PO 03/29/17 21:00 03/29/17 21:04 (Wallagrass 5-325 Mg) 1 tab Q4H PRN PO 03/29/17 16:00 03/30/17 13:20 (Mycostatin Powder) 1 applic Q8HR TOPICAL 03/29/17 22:00 03/30/17 13:20 (Dilaudid Pf Inj) 1 mg Q4H PRN IV PUSH 03/29/17 20:00 (Lovenox Inj) 40 mg Q24H SQ 03/30/17 09:00 03/30/17 09:00 (Lactinex) 1 tab TID PO 03/30/17 18:00 (Bactrim Ds 800-160 Mg) 1 tab Q12HR PO 03/30/17 21:00 (Mycostatin Oint) 1 applic Q12HR TOPICAL 03/30/17 21:00 Reported Meds & Active Scripts Active Lactobacillus Acidophilus 1 Billion Cell Tab 1 Tab PO TIDAC Bactrim DS (Sulfamethoxazole-Trimethoprim) 800-160 Mg Tab 1 Tab PO BID Tramadol (Tramadol HCl) 50 Mg Tab 50 Mg PO Q6H PRN Reported Hydroxyzine Pamoate 50 Mg Cap 50 Mg PO HS Bupropion HCl 100 Mg Tab 150 Mg PO HS Ziprasidone 60 Mg Cap 120 Mg PO HS Family History mom bowel obstruction Social History used to smoke, quit 10days ago denies drinking etoh or drug abuse Physical Exam Vital Signs Vital Signs Date Time Temp Pulse Resp B/P (MAP) Pulse Ox O2 Delivery O2 Flow Rate FiO2 03/30/17 14:36 18 03/30/17 11:48 98.3 86 20 161/78 (105) 96 03/30/17 07:51 98.0 89 20 134/72 (92) 95 03/30/17 04:05 90 03/30/17 03:36 98.4 87 18 124/68 (86) 93 03/29/17 23:59 91 03/29/17 23:27 98.3 88 18 132/68 (89) 93 03/29/17 20:28 98.8 98 20 124/61 (82) 94 Physical Exam He has bilateral lower extremity edema and areas of patchy erythema. His left knee is held in a flexed position. There is mild swelling. He has a well- healed surgical incision over the anterior aspect. He has pain with any attempt at range of motion and is unable to extend it. There are no obvious focal neurological deficits distally. He has good capillary refill and sensation. Laboratory Laboratory Tests Test 03/30/17 03:32 White Blood Count 9.8 Red Blood Count 4.14 Hemoglobin 13.2 Hematocrit 38.7 Mean Corpuscular Volume 93.3 Mean Corpuscular Hemoglobin 31.9 Mean Corpuscular Hemoglobin Concent 34.2 Red Cell Distribution Width 13.3 Platelet Count 373 Mean Platelet Volume 7.0 Neutrophils (%) (Auto) 68.3 Lymphocytes (%) (Auto) 24.3 Monocytes (%) (Auto) 6.8 Eosinophils (%) (Auto) 0.3 Basophils (%) (Auto) 0.3 Neutrophils # (Auto) 6.7 Lymphocytes # (Auto) 2.4 Monocytes # (Auto) 0.7 Eosinophils # (Auto) 0.0 Basophils # (Auto) 0.0 CBC Comment DIFF FINAL Differential Comment Blood Urea Nitrogen 15 Creatinine 1.03 Random Glucose 102 Calcium Level 8.0 Sodium Level 138 Potassium Level 4.1 Chloride Level 102 Carbon Dioxide Level 28.0 Anion Gap 8 Estimat Glomerular Filtration Rate 73 Date/Time Source Procedure Growth Status 03/29/17 13:36 Blood Peripheral Aerobic Blood Culture - Preliminary NO GROWTH IN 1 DAY Resulted 03/29/17 13:36 Blood Peripheral Anaerobic Blood Culture - Preliminary NO GROWTH IN 1 DAY Resulted Result Diagram: 03/30/17 0332 03/30/17 0332 Imaging Last 72 hours Impressions Tibia/Fibula X-Ray 03/29/17 1330 Signed Impressions: Service Date/Time: Wednesday, March 29, 2017 13:44 - CONCLUSION: No acute bony abnormality is seen. Girma Gan MD Ankle X-Ray 03/29/17 1330 Signed Impressions: Service Date/Time: Wednesday, March 29, 2017 13:45 - CONCLUSION: Prominent soft tissue swelling. Girma Gan MD Lower Extremity Ultrasound 03/29/17 0000 Signed Impressions: Service Date/Time: Wednesday, March 29, 2017 16:12 - CONCLUSION: No DVT and there are lymph nodes in the groin bilaterally the largest one on the left measures 3.5 cm in size. Riki Villatoro MD Lower Extremity CT 03/29/17 0000 Signed Impressions: Service Date/Time: Wednesday, March 29, 2017 16:56 - CONCLUSION: Dislocation of the femoral and tibial components with tibial dislocated posteriorly. Riki Villatoro MD Knee X-Ray 03/29/17 0000 Signed Impressions: Service Date/Time: Wednesday, March 29, 2017 14:49 - CONCLUSION: Intact total hip prosthesis for technique. Riki Villatoro MD ADDENDUM: There is a total knee prosthesis in place. There is posterior subluxation displacement of the tibia and tibial component of the total knee prosthesis. This is best seen on the lateral view. Girma Gan MD Assessment & Plan Problem List: (1) Dislocation of prosthetic knee joint ICD Codes: T84.028A - Dislocation of other internal joint prosthesis, initial encounter; Z96.659 - Presence of unspecified artificial knee joint (2) Obesity ICD Codes: E66.9 - Obesity, unspecified Status: Acute (3) Cerebral palsy ICD Codes: G80.9 - Cerebral palsy, unspecified Status: Chronic (4) Cellulitis ICD Codes: L03.90 - Cellulitis, unspecified Status: Acute Qualifiers: Qualified Codes: L03.116 - Cellulitis of left lower limb Assessment and Plan The findings were discussed. His x-rays were reviewed. The patient had a posterior stabilized total knee arthroplasty which has apparently dislocated with the tibial component posterior. He states this has happened before requiring closed reduction. An attempt will be made for reduction under sedation in the emergency room setting. If this is successful, the patient can be discharged and will follow-up with his treating surgeon, Dr. Shepherd. If unsuccessful under sedation he may require reduction under general anesthesia. The nature of the procedure, the risks, expected benefits, as well as the postoperative expectations were discussed with him. He acknowledges full understanding and agrees to it. Renzo Frankel MD Mar 30, 2017 15:40
[2017-03-30] MEDS ORDERED: PROPOFOL 200 MG/20 ML AMP IV ONE (16:30)
--- NOTE | 2017-03-30 16:43 | PD.OP ---
cc: Renzo Frankel MD Operative Report Date of Surgery: Mar 30, 2017 Preoperative Diagnosis: (1) Dislocation of prosthetic knee joint Postoperative Diagnosis: (1) Dislocation of prosthetic knee joint Procedure: Closed reduction dislocated left total knee arthroplasty Anesthesia: Propofol sedation Surgeon: Renzo Frankel [employer] Superintendent(s): ED staff Operation and Findings: Indications: This 61-year-old male who has a history of a total knee arthroplasty many years ago has had recurrent instability and states he has required closed manipulation. He has been treated recently for cellulitis of the left lower extremity. He did have a fall and has been unable to extend his knee. An x-ray revealed posterior subluxation of the tibia. He has a posterior stabilized component which therefore would indicate a dislocated total knee arthroplasty. Procedure and findings: The patient was administered propofol by the emergency room physician. The left knee was locked in flexion. A closed manipulation of the knee was then completed with flexion of the knee followed by anterior stress on the tibia. There was an audible clunk at which time for extension was easily obtainable. Post reduction x-rays are pending at the time of this dictation. The patient tolerated procedure well. He will be placed into a knee immobilizer and will follow with his treating surgeon upon discharge. Renzo Frankel MD Mar 30, 2017 16:43
--- NOTE | 2017-03-30 17:30 | RADRPT ---
EXAM DATE/TIME: 03/30/2017 17:03 [facility] COMPARISON: KNEE LEFT COMPLETE (4VWS), March 29, 2017, 14:49. INDICATIONS : Post reduction left knee. MEDICAL HISTORY : Hypertension. Cerebral palsy. SURGICAL HISTORY : Bilateral knee replacement ENCOUNTER: Subsequent ACUITY: 2 days PAIN SCORE: 5/10 LOCATION: Left Knee. FINDINGS: Previously seen dislocation has been reduced. The alignment is anatomical at this time. CONCLUSION: Reduction of previously seen femoral tibial prosthatic dislocation. Riki Villatoro MD on March 30, 2017 at 17:27 Board Certified Radiologist. This report was verified electronically.
[2017-03-30] MEDS: LACTOBACILLUS ACIDOPHILUS TAB PO SCH (18:34)
[2017-03-30 19:45] VITALS: BP 150/72; PULSE 72; RESP 18; TEMP 98.5; O2SAT 98
[2017-03-30] MEDS ORDERED: NYSTATIN 100,000 U/GM OINT 15 GM TUBE TOPICAL SCH (21:00)
[2017-03-30] MEDS: buPROPion HCL 150 MG SUSTAINED RELEASE TAB PO SCH (21:52)
[2017-03-30] MEDS: ZIPRASIDONE HCL 60 MG CAP PO SCH (21:52)
[2017-03-30] MEDS: SULFAMETHOXAZOLE-TRIMETHOPRIM DS 800-160 MG TAB PO SCH (21:52)
[2017-03-30 22:59] VITALS: BP 148/68; PULSE 78; RESP 18; TEMP 97.8; O2SAT 97
[2017-03-31] MEDS: NYSTATIN 100,000 U/GM PWD 15 GM BTL TOPICAL SCH ×2 (03:22→06:00)
[2017-03-31 05:30] VITALS: BP 154/79; PULSE 74; RESP 18; TEMP 98; O2SAT 96
[2017-03-31 07:32] VITALS: BP 136/80; PULSE 95; RESP 22; TEMP 98.6; O2SAT 96
[2017-03-31] MEDS ORDERED: Nystatin Oint TOPICAL (10:05)
--- NOTE | 2017-03-31 10:05 | HHI.DS ---
Discharge Summary Admission Date Mar 30, 2017 at 14:20 Discharge Date: Mar 31, 2017 Admitting Diagnosis left leg cellulitis, worse from previous, non compliant (1) Subluxation of left knee ICD Code: S83.102A - Unspecified subluxation of left knee, initial encounter Diagnosis: Principal (2) Obesity ICD Code: E66.9 - Obesity, unspecified Diagnosis: Secondary Status: Acute (3) Renal insufficiency ICD Code: N28.9 - Disorder of kidney and ureter, unspecified Diagnosis: Secondary (4) Cerebral palsy ICD Code: G80.9 - Cerebral palsy, unspecified Diagnosis: Secondary Status: Chronic (5) Cellulitis ICD Code: L03.90 - Cellulitis, unspecified Diagnosis: Principal Status: Acute (6) Gastroesophageal reflux disease Diagnosis: Secondary (7) Hypertension Diagnosis: Secondary (8) fungal infection Diagnosis: Secondary Status: Chronic Procedures Reduction of left knee subluxation Brief History - From Admission History from patient, ER PA communication, and review of medical records. Patient was recently discharged from our hospital on March 27, 2017. He was managed from March 20, 2017 to March 27, 2017 here for left lower extremity cellulitis. He was discharged home with home health care and orders to continue Augmentin as outpatient. Patient reported that today, while he was sitting on his chair, he fell face forward trying to get up from the chair. He denies any syncopal episodes. Denies any premonitory symptoms prior to the fall. However he stated that after the fall, he was not able to get up. He was quite short of breath as well. He reports of a little bit of nausea after the fall. Patient reports of diarrhea for at least the past 1 week. He stated it was ever since he came in for cellulitis. Reports diarrhea was foul-smelling, black in color. Again, patient stated his stool has been black for a long time. He is not on iron pills at home. He states he lives on his own. He has not filled his prescriptions for antibiotics. He states his friend was supposed to get it and has not brought him home. Denies being on blood thinners at home. CBC/BMP: 03/30/17 0332 03/30/17 0332 Significant Findings Laboratory Tests Test 03/29/17 13:36 03/30/17 03:32 White Blood Count 11.2 TH/MM3 (4.0-11.0) Mean Platelet Volume 6.9 FL (7.0-11.0) Sodium Level 135 MEQ/L (136-145) Carbon Dioxide Level 32.6 MEQ/L (21.0-32.0) Anion Gap 3 MEQ/L (5-15) Estimat Glomerular Filtration Rate 61 ML/MIN (>89) 73 ML/MIN (>89) C-Reactive Protein 5.36 MG/DL (0.00-0.30) Red Blood Count 4.14 MIL/MM3 (4.50-5.90) Hematocrit 38.7 % (39.0-51.0) Calcium Level 8.0 MG/DL (8.5-10.1) Hospital Course Mr. Khan is a 61-year-old male. He was admitted secondary to falls at home and complaining of left knee pain. He also complained worsening of the left lower extremity cellulitis which she had not started oral antibiotics for home. Antibiotic treatments and close monitoring are needed. Patient's also having difficulty walking, demonstrated by falls at home. His left knee was subluxed and he had a reduction of the subluxation performed in the ER today. The knee is now in anatomical position and patient has a knee brace in place. Continue physical therapy as needed both for recovery from his subluxation and to improve his ambulation prior to return to home so he does not fall again. Medically stable for transfer to [facility] facility today. Pt Condition on Discharge: Stable Discharge Disposition: Discharge to SNF Discharge Time: > 30 minutes Discharge Instructions DIET: Follow Instructions for: As Tolerated, No Restrictions Activities you can perform: Regular-No Restrictions Follow up Referrals: PCP Follow-up - 2 Weeks New Medications: Lactobacillus Acidophilus (Lactobacillus Acidophilus) 1 Billion Cell Tab 1 TAB PO TIDAC for Nutritional Supplement, #45 TAB 0 Refills Sulfamethoxazole-Trimethoprim (Bactrim DS) 800-160 Mg Tab 1 TAB PO BID for Infection, #20 TAB 0 Refills Tramadol (Tramadol) 50 Mg Tab 50 MG PO Q6H PRN for PAIN, #40 TAB 0 Refills Continued Medications: Bupropion HCl (Bupropion HCl) 100 Mg Tab 150 MG PO HS for Control Depression, TAB 0 Refills Hydroxyzine Pamoate (Hydroxyzine Pamoate) 50 Mg Cap 50 MG PO HS, CAP 0 Refills Ziprasidone (Ziprasidone) 60 Mg Cap 120 MG PO HS, #60 CAP 0 Refills Discontinued Medications: Amoxicillin-Clavulanate (Augmentin) 875-125 Mg Tab 1 TAB PO BID for Infection, #20 TAB 0 Refills Christopher Freitas MD Mar 31, 2017 10:04
[2017-03-31] MEDS ORDERED: HYDR-3516 PO (10:07)
[2017-03-31] MEDS: SODIUM CHLORIDE 0.9% FLUSH 10 ML FLUSH IV FLUSH SCH (10:11)
[2017-03-31] MEDS: LACTOBACILLUS ACIDOPHILUS TAB PO SCH (10:12)
[2017-03-31] MEDS: SULFAMETHOXAZOLE-TRIMETHOPRIM DS 800-160 MG TAB PO SCH (10:12)
[2017-03-31] MEDS: ENOXAPARIN SODIUM 40 MG/0.4 ML SYRINGE SQ SCH (10:14)
== END 2017-03-31 11:58 | DRG 560 ==
LOC: NEPC 13:09 → NEDA 15:34 → NEPGCP 17:22 → OBSVTOIN 03-30 14:20
PROVIDERS: ADMIT Hospitalist; ATTEND Hospitalist
PROC: 0SWDXJZ Revision of Synthetic Substitute in Left Knee Joint, External Approach (ICD-10-PCS; principal; 2017-03-30)
DX: T84.023A Instability of internal left knee prosthesis, initial encounter (principal); L03.116 Cellulitis of left lower limb; J43.9 Emphysema, unspecified; I10 Essential (primary) hypertension; G80.9 Cerebral palsy, unspecified; B37.2 Candidiasis of skin and nail; F31.9 Bipolar disorder, unspecified; R29.6 Repeated falls; K21.9 Gastro-esophageal reflux disease without esophagitis; R19.7 Diarrhea, unspecified; E66.9 Obesity, unspecified; N28.9 Disorder of kidney and ureter, unspecified; F41.9 Anxiety disorder, unspecified; M19.90 Unspecified osteoarthritis, unspecified site; W07.XXXA Fall from chair, initial encounter; Y79.2 Prosthetic and other implants, materials and accessory orthopedic devices associated with adverse incidents; Y92.009 Unspecified place in unspecified non-institutional (private) residence as the place of occurrence of the external cause; Z68.34 Body mass index [BMI] 34.0-34.9, adult; Z87.891 Personal history of nicotine dependence; Z88.1 Allergy status to other antibiotic agents; Z91.14 Patient's other noncompliance with medication regimen; Z91.19 Patient's noncompliance with other medical treatment and regimen
CPT/HCPCS: 73560; 73564; 73590; 73610; 73700; 76937; 80048; 83605; 83735; 85025; 86140; 87040; 93970; 96365; 96366; 96375; G0378; G8987-GP; G8988-GP; J0295; J1650; J2270; J2405; J7030; L1830

== ENCOUNTER 2017-07-12 01:53 | Emergency (ER) | payer MEDICARE, MEDICAID ==
[~2017-07-12] VITALS: Ht 175.3 cm; Wt 118.0 kg
[~2017-07-12 01:53] MED LIST changes: -AUGM875T3 PO; +BACT800T5 PO; +HYDR-3516 PO; -HYDR-3583 PO; +HYDR50CA PO; +LACTTAB8 PO; +Nystatin Oint TOPICAL; +TRAM50TA PO
[2017-07-12 02:35] VITALS: BP 136/76; PULSE 75; RESP 20; TEMP 98.4; O2SAT 97
--- NOTE | 2017-07-12 03:13 | PD ---
HPI Chief Complaint: GI Complaint Time Seen by Provider: 03:07 Travel History International Travel<30 days: No Contact w/Intl Traveler<30days: No Traveled to known affect area: No History of Present Illness HPI 61-year-old male arrives with complaint of "not feeling good." He reports vomiting multiple times in the last few days. No fever or diarrhea. The patient reports some chest pain after multiple episodes of dry heaving. He reports similar episodes have occurred previously. Appetite has been slightly decreased. No new or different medication. No recent illness the patient can recall otherwise. PFSH Past Medical History Arthritis: Yes Asthma: No Autoimmune Disease: No Blood Disorders: No Bipolar Disorder: Yes Anxiety: Yes Depression: No Heart Rhythm Problems: No Cancer: No Cardiovascular Problems: Yes (HTN ) Cerebral Palsy: Yes High Cholesterol: Yes Chemotherapy: No Chest Pain: No Congestive Heart Failure: No COPD: No Cerebrovascular Accident: No Developmental Delay: Yes (H/O CP AND ENCEPHALITIS) Diabetes: No Diminished Hearing: No Diverticulitis: Yes Endocrine: No Gastrointestinal Disorders: Yes (DIVERTICULITIS) GERD: Yes Glaucoma: No Genitourinary: No Headaches: No Hepatitis: No Hiatal Hernia: No Heparin Induced Thrombocytopen: No Hypertension: Yes Immune Disorder: No Implanted Vascular Access Dvce: Yes (PT STATES "TWO TOTAL KNEE REPLACEMENTS") Kidney Stones: Yes (WITH LITHOTRIPSY) Musculoskeletal: Yes (CEREBRAL PALSY) Neurologic: Yes Psychiatric: Yes Reproductive: No Respiratory: No Immunizations Current: Yes Migraines: No Myocardial Infarction: No Radiation Therapy: No Renal Failure: No Seizures: No Sickle Cell Disease: No Sleep Apnea: No Thyroid Disease: No Ulcer: No PNEUMOCCOCAL Vaccine (Year): 2009 Past Surgical History Abdominal Surgery: No AICD: No Appendectomy: No Arteriovenous Shunt: No Cardiac Surgery: No Cholecystectomy: No Ear Surgery: No Endocrine Surgery: No Eye Surgery: No Genitourinary Surgery: No Gynecologic Surgery: No Insulin Pump: No Joint Replacement: Yes (BILATERAL KNEES) Neurologic Surgery: Yes (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, cp as a kid, traces now per patient repor) Oral Surgery: No Pacemaker: No Thoracic Surgery: No Tonsillectomy: Yes Other Surgery: Yes Social History Alcohol Use: No Tobacco Use: Yes (1ppd) Substance Use: No Allergies-Medications (Allergen,Severity, Reaction): Coded Allergies: cephalexin (Unverified Allergy, Severe, RASH, 07/12/17) Keflex Reported Meds & Prescriptions Reported Meds & Active Scripts Active Zofran Odt (Ondansetron Odt) 4 Mg Tab 4 Mg SL Q8HR PRN Reported Hydroxyzine Pamoate 50 Mg Cap 50 Mg PO HS Bupropion HCl 100 Mg Tab 150 Mg PO HS Ziprasidone 60 Mg Cap 120 Mg PO HS Review of Systems Except as stated in HPI: all other systems reviewed are Neg General / Constitutional: No: Fever Physical Exam Narrative GENERAL: 61-year-old male well-nourished well-developed, BMI is 38 Vital Signs Date Time Temp Pulse Resp B/P (MAP) Pulse Ox O2 Delivery O2 Flow Rate FiO2 07/12/17 02:35 98.4 75 20 136/76 (96) 97 SKIN: Warm and dry. HEAD: Atraumatic. Normocephalic. EYES: Pupils equal and round. No scleral icterus. No injection or drainage. ENT: No nasal bleeding or discharge. Mucous membranes pink and moist. NECK: Trachea midline. No JVD. CARDIOVASCULAR: Regular rate and rhythm. RESPIRATORY: No accessory muscle use. Clear to auscultation. Breath sounds equal bilaterally. GASTROINTESTINAL: Abdomen soft, non-tender, nondistended. Hepatic and splenic margins not palpable. MUSCULOSKELETAL: Extremities without clubbing, cyanosis, or edema. No obvious deformities. NEUROLOGICAL: Awake and alert. No obvious cranial nerve deficits. Motor grossly within normal limits. Five out of 5 muscle strength in the arms and legs. Normal speech. PSYCHIATRIC: Appropriate mood and affect; insight and judgment normal. Data Data Last Documented VS Vital Signs Date Time Temp Pulse Resp B/P (MAP) Pulse Ox O2 Delivery O2 Flow Rate FiO2 07/12/17 02:35 98.4 75 20 136/76 (96) 97 Orders Orders Complete Blood Count With Diff (07/12/17 03:07) Comprehensive Metabolic Panel (07/12/17 03:07) Lipase (07/12/17 03:07) Urinalysis - C+S If Indicated (07/12/17 03:07) Iv Access Insert/Monitor (07/12/17 03:07) Ecg Monitoring (07/12/17 03:07) Oximetry (07/12/17 03:07) Ondansetron Inj (Zofran Inj) (07/12/17 03:15) Sodium Chloride 0.9% Flush (Ns Flush) (07/12/17 03:15) Electrocardiogram (07/12/17 03:07) Ed Discharge Order (07/12/17 06:50) Labs Laboratory Tests Test 07/12/17 03:30 07/12/17 06:30 White Blood Count 7.6 TH/MM3 Red Blood Count 5.15 MIL/MM3 Hemoglobin 16.6 GM/DL Hematocrit 47.5 % Mean Corpuscular Volume 92.2 FL Mean Corpuscular Hemoglobin 32.3 PG Mean Corpuscular Hemoglobin Concent 35.0 % Red Cell Distribution Width 13.0 % Platelet Count 232 TH/MM3 Mean Platelet Volume 6.8 FL Neutrophils (%) (Auto) 63.9 % Lymphocytes (%) (Auto) 29.4 % Monocytes (%) (Auto) 6.2 % Eosinophils (%) (Auto) 0.3 % Basophils (%) (Auto) 0.2 % Neutrophils # (Auto) 4.9 TH/MM3 Lymphocytes # (Auto) 2.2 TH/MM3 Monocytes # (Auto) 0.5 TH/MM3 Eosinophils # (Auto) 0.0 TH/MM3 Basophils # (Auto) 0.0 TH/MM3 CBC Comment DIFF FINAL Differential Comment Blood Urea Nitrogen 13 MG/DL Creatinine 1.24 MG/DL Random Glucose 106 MG/DL Total Protein 7.8 GM/DL Albumin 3.7 GM/DL Calcium Level 9.4 MG/DL Alkaline Phosphatase 78 U/L Aspartate Amino Transf (AST/SGOT) 32 U/L Alanine Aminotransferase (ALT/SGPT) 25 U/L Total Bilirubin 0.5 MG/DL Sodium Level 138 MEQ/L Potassium Level 4.8 MEQ/L Chloride Level 103 MEQ/L Carbon Dioxide Level 28.2 MEQ/L Anion Gap 7 MEQ/L Estimat Glomerular Filtration Rate 59 ML/MIN Lipase 225 U/L Urine Color YELLOW Urine Turbidity CLEAR Urine pH 7.5 Urine Specific [place] 1.019 Urine Protein NEG mg/dL Urine Glucose (UA) NEG mg/dL Urine Ketones NEG mg/dL Urine Occult Blood NEG Urine Nitrite NEG Urine Bilirubin NEG Urine Urobilinogen LESS THAN 2.0 MG/DL Urine Leukocyte Esterase NEG Urine RBC 2 /hpf Urine WBC LESS THAN 1 /hpf Urine Bacteria RARE /hpf Urine Mucus FEW /lpf Microscopic Urinalysis Comment CULT NOT INDICATED MDM Medical Decision Making Medical Screen Exam Complete: Yes Emergency Medical Condition: Yes Medical Record Reviewed: Yes Differential Diagnosis Constipation, Gastritis, Acute Cholecystitis, Biliary Colic, Pancreatitis, SOTO , Hepatitis, Bowel Obstruction, Cystitis, Mesenteric Ischemia, AAA, Appendicitis , Renal Stone/Hydronephrosis, GERD, perforated viscous Narrative Course CBC & BMP Diagram 07/12/17 03:30 Total Protein 7.8, Albumin 3.7, Calcium Level 9.4, Alkaline Phosphatase 78, Aspartate Amino Transf (AST/SGOT) 32, Alanine Aminotransferase (ALT/SGPT) 25, Total Bilirubin 0.5 The patient is resting comfortably and feels better, is alert and in no distress. The patients results and examination findings were discussed. The repeat examination is unremarkable and benign. The history, exam, diagnostic testing, and current condition do not suggest any significant pathology to warrant further testing, continued ED treatment, admission, or surgical evaluation at this point. The vital signs have been stable. The patient does not have uncontrollable pain, intractable vomiting, or other significant symptoms. The patient's condition is stable and appropriate for discharge. The patient will pursue further outpatient evaluation with a primary care physician or other designated or consulting physician as indicated in the discharge instructions. The patient expressed understanding and was agreeable with this plan. Diagnosis Primary Impression: Vomiting Qualified Codes: R11.10 - Vomiting, unspecified Referrals: Primary Care Physician 2 days Med/Other Pt SpecificInfo: Prescription(s) given Scripts Ondansetron Odt (Zofran Odt) 4 Mg Tab 4 MG SL Q8HR Y for Nausea/Vomiting, #10 TAB 0 Refills Prov: Christopher Erickson MD 07/12/17 Disposition: 01 DISCHARGE HOME Condition: Stable Christopher Erickson MD Jul 12, 2017 03:13
[2017-07-12] MEDS ORDERED: ONDANSETRON HCL 4 MG/2 ML VIAL IVP ONE (03:15)
[2017-07-12] MEDS ORDERED: SODIUM CHLORIDE 0.9% FLUSH 10 ML FLUSH IV FLUSH PRN (03:15)
[2017-07-12 04:15] LABS: AUTOMATED NEUTROPHIL # 4.9 TH/MM3 (1.8-7.7); BASOPHIL % 0.2 % (0.0-2.0); EOSINOPHIL % 0.3 % (0.0-4.0); HEMATOCRIT 47.5 % (39.0-51.0); HEMOGLOBIN 16.6 GM/DL (13.0-17.0); LYMPH % 29.4 % (9.0-44.0); LYMPHOCYTE # 2.2 TH/MM3 (1.0-4.8); MEAN CELL VOLUME 92.2 FL (80.0-100.0); MEAN CORPUSCULAR HEMOGLOBIN 32.3 PG (27.0-34.0); MEAN PLATELET VOLUME 6.8 FL (7.0-11.0); MONO % 6.2 % (0.0-8.0); MONOCYTE # 0.5 TH/MM3 (0-0.9); NEUT % 63.9 % (16.0-70.0); PLATELET COUNT 232 TH/MM3 (150-450); RED BLOOD COUNT 5.15 MIL/MM3 (4.50-5.90); WHITE BLOOD COUNT 7.6 TH/MM3 (4.0-11.0)
[2017-07-12 04:27] LABS: ALKALINE PHOSPHATASE 78 U/L (45-117); TOTAL BILIRUBIN ADULT 0.5 MG/DL (0.2-1.0); TOTAL PROTEIN 7.8 GM/DL (6.4-8.2)
[2017-07-12 04:43] LABS: ALBUMIN 3.7 GM/DL (3.4-5.0); ALT (GPT) 25 U/L (12-78); AST (GOT) 32 U/L (15-37); BICARBONATE 28.2 MEQ/L (21.0-32.0); BLOOD UREA NITROGEN 13 MG/DL (7-18); CALCIUM 9.4 MG/DL (8.5-10.1); CHLORIDE 103 MEQ/L (98-107); CREATININE 1.24 MG/DL (0.60-1.30); GLOMERULAR FILTRATION RATE 59 ML/MIN (>89); GLUCOSE,RANDOM 106 MG/DL (74-106); SODIUM (NA) 138 MEQ/L (136-145)
[2017-07-12] MEDS ORDERED: ZOFR4TAB3 SL (06:35)
[2017-07-12 07:27] LABS: BACTERIA, URINE RARE /hpf; BILIRUBIN, URINE NEG (NEG); BLOOD, URINE NEG (NEG); GLUCOSE,URINE NEG (NEG); KETONE, URINE NEG (NEG); MUCUS URINE FEW /lpf (OCC); NITRITE,URINE NEG (NEG); PH, URINE 7.5 (5.0-8.5); URINE COLOR YELLOW (YELLW/STRAW); URINE LEUKOCYTE ESTERASE NEG (NEG)
--- NOTE | 2017-07-12 15:50 | EKG ---
Date Performed: 07/12/2017 Time Performed: 06:22:23 PTAGE: 61 years EKG: SINUS BRADYCARDIA BORDERLINE ECG Compared to PREVIOUS TRACING , the patient is now bradycardic. PREVIOUS TRACIN09/14/2014 20.53 DOCTOR: Christi Sanchez Interpretating Date/Time 07/12/2017 15:48:51
== END 2017-07-12 06:59 | disposition home or self-care (01) ==
LOC: NEPC 01:53
DX: R11.10 Vomiting, unspecified (principal); R94.31 Abnormal electrocardiogram [ECG] [EKG]; F31.9 Bipolar disorder, unspecified; F41.9 Anxiety disorder, unspecified; I10 Essential (primary) hypertension; G80.9 Cerebral palsy, unspecified; E78.00 Pure hypercholesterolemia, unspecified; K21.9 Gastro-esophageal reflux disease without esophagitis; F17.200 Nicotine dependence, unspecified, uncomplicated
CPT/HCPCS: 80053; 81001; 83690; 85025; 93005; 96374; 99284; J2405

== ENCOUNTER 2017-08-08 15:59 | Observation (INO) | payer MEDICARE, MEDICAID ==
[~2017-08-08] VITALS: Ht 175.3 cm; Wt 120.0 kg
[2017-08-08] VITALS (7 sets, daily range): BP systolic 118–159; BP diastolic 63–84; PULSE 61–90; RESP 18–20; TEMP 98.4–98.8; O2SAT 94–96
[~2017-08-08 15:59] MED LIST changes: -BACT800T5 PO; -HYDR-3516 PO; -LACTTAB8 PO; -Nystatin Oint TOPICAL; -TRAM50TA PO; +ZOFR4TAB3 SL
[2017-08-08] MEDS ORDERED: IOHEXOL 350 MG/ML 10 ML VIAL (for RAD DIAG) IVCONTRAST ONE (16:00)
--- NOTE | 2017-08-08 16:43 | PD ---
HPI Chief Complaint: Chest Pain Time Seen by Provider: 16:35 Travel History International Travel<30 days: No Contact w/Intl Traveler<30days: No Traveled to known affect area: No History of Present Illness HPI 62-year-old male with history of bipolar disorder, 1 pack per day smoker, here for evaluation of chest pain and dyspnea. The patient reports having shortness of breath over the last week. He reports shortness of breath at rest, worse with exertion. States that he started having chest pain this morning. He reports left-sided chest tightness/heaviness, 10 out of 10, constant, radiates to his left shoulder, worse with exertion. He denies any history of cardiac disease. States that he has had a cough that has been nonproductive for about a week. No hemoptysis. No paresthesias or motor deficits. PFSH Past Medical History Arthritis: Yes Asthma: No Autoimmune Disease: No Blood Disorders: No Bipolar Disorder: Yes Anxiety: Yes Depression: No Heart Rhythm Problems: No Cancer: No Cardiovascular Problems: Yes (HTN ) Cerebral Palsy: Yes High Cholesterol: Yes Chemotherapy: No Chest Pain: No Congestive Heart Failure: No COPD: No Cerebrovascular Accident: No Developmental Delay: Yes (H/O CP AND ENCEPHALITIS) Diabetes: No Diminished Hearing: No Diverticulitis: Yes Endocrine: No Gastrointestinal Disorders: Yes (DIVERTICULITIS) GERD: Yes Glaucoma: No Genitourinary: No Headaches: No Hepatitis: No Hiatal Hernia: No Heparin Induced Thrombocytopen: No Hypertension: Yes Immune Disorder: No Implanted Vascular Access Dvce: Yes (PT STATES "TWO TOTAL KNEE REPLACEMENTS") Kidney Stones: Yes (WITH LITHOTRIPSY) Musculoskeletal: Yes (CEREBRAL PALSY) Neurologic: Yes Psychiatric: Yes Reproductive: No Respiratory: No Immunizations Current: Yes Migraines: No Myocardial Infarction: No Radiation Therapy: No Renal Failure: No Seizures: No Sickle Cell Disease: No Sleep Apnea: No Thyroid Disease: No Ulcer: No PNEUMOCCOCAL Vaccine (Year): 2009 Past Surgical History Abdominal Surgery: No AICD: No Appendectomy: No Arteriovenous Shunt: No Cardiac Surgery: No Cholecystectomy: No Ear Surgery: No Endocrine Surgery: No Eye Surgery: No Genitourinary Surgery: No Gynecologic Surgery: No Insulin Pump: No Joint Replacement: Yes (BILATERAL KNEES) Neurologic Surgery: Yes (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, cp as a kid, traces now per patient repor) Oral Surgery: No Pacemaker: No Thoracic Surgery: No Tonsillectomy: Yes Other Surgery: Yes Social History Alcohol Use: No Tobacco Use: Yes (1ppd) Substance Use: No Allergies-Medications (Allergen,Severity, Reaction): Coded Allergies: cephalexin (Unverified Allergy, Severe, RASH, 07/12/17) Keflex Reported Meds & Prescriptions Reported Meds & Active Scripts Active Reported Hydroxyzine Pamoate 50 Mg Cap 50 Mg PO HS Bupropion HCl 100 Mg Tab 150 Mg PO HS Ziprasidone 60 Mg Cap 120 Mg PO HS Review of Systems Except as stated in HPI: all other systems reviewed are Neg Physical Exam Narrative GENERAL: Well-developed, well-nourished, awake, alert, overweight, comfortable, no apparent distress. SKIN: Focused skin assessment warm/dry. HEAD: Atraumatic. Normocephalic. EYES: Pupils equal and round. No scleral icterus. No injection or drainage. ENT: Mucous membranes pink and moist. NECK: Trachea midline. No JVD. CARDIOVASCULAR: Regular rate and rhythm. RESPIRATORY: No accessory muscle use. Clear to auscultation. Breath sounds equal bilaterally. GASTROINTESTINAL: Abdomen soft, non-tender, nondistended. MUSCULOSKELETAL: No obvious deformities. No clubbing. No cyanosis. Moderate bilateral lower extremity edema. NEUROLOGICAL: Awake and alert. No obvious cranial nerve deficits. Motor grossly within normal limits. Normal speech. PSYCHIATRIC: Appropriate mood and affect; insight and judgment normal. Data Data Last Documented VS Vital Signs Date Time Temp Pulse Resp B/P (MAP) Pulse Ox O2 Delivery O2 Flow Rate FiO2 08/08/17 17:58 78 18 118/66 (83) 96 Room Air 08/08/17 16:03 98.8 Orders Orders Ckmb (Isoenzyme) Profile (08/08/17 16:38) Complete Blood Count With Diff (08/08/17 16:38) Comprehensive Metabolic Panel (08/08/17 16:38) D-Dimer (08/08/17 16:38) Magnesium (Mg) (08/08/17 16:38) Prothrombin Time / Inr (Pt) (08/08/17 16:38) Act Partial Throm Time (Ptt) (08/08/17 16:38) Troponin I (08/08/17 16:38) Lipase (08/08/17 16:38) Chest, Single Ap (08/08/17 16:38) Ecg Monitoring (08/08/17 16:38) Iv Access Insert/Monitor (08/08/17 16:38) Oximetry (08/08/17 16:38) Aspirin Chew (Aspirin Chew) (08/08/17 16:45) Sodium Chloride 0.9% Flush (Ns Flush) (08/08/17 16:45) Nitroglycerin Sl (Nitrostat Sl) (08/08/17 16:45) CKMB (08/08/17 16:58) CKMB% (08/08/17 16:58) Ct Pulmonary Angiogram (08/08/17 ) Iohexol 350 Inj (Omnipaque 350 Inj) (08/08/17 16:00) Admit Order (Ed Use Only) (08/08/17 19:27) Activity Bed Rest With Brp (08/08/17 19:29) Vital Signs (Adult) Q4H (08/08/17 19:29) Cardiac Rhythm .As Directed (08/08/17:29) Notify Dr: Other .PRN (08/08/17 19:29) Notify DrVeto Parameters (08/08/17 19:29) Resp Oxygen Nasal Cannula (08/08/17 ) Ckmb (Isoenzyme) Profile (08/08/17:29) Ckmb (Isoenzyme) Profile (08/08/17 22:29) Troponin I (08/08/17 19:29) Troponin I (08/08/17 22:29) Electrocardiogram (08/08/17 19:29) Electrocardiogram (08/08/17 22:29) ^ Obtain (08/08/17 19:29) Sodium Chloride 0.9% Flush (Ns Flush) (08/08/17 19:30) Sodium Chloride 0.9% Flush (Ns Flush) (08/08/17 21:00) Heat Treat Worker / Telemetry GREG.Q8H (08/08/17 19:29) Labs Laboratory Tests Test 08/08/17 16:58 White Blood Count 8.6 TH/MM3 Red Blood Count 4.94 MIL/MM3 Hemoglobin 15.5 GM/DL Hematocrit 45.2 % Mean Corpuscular Volume 91.6 FL Mean Corpuscular Hemoglobin 31.5 PG Mean Corpuscular Hemoglobin Concent 34.4 % Red Cell Distribution Width 12.5 % Platelet Count 260 TH/MM3 Mean Platelet Volume 6.7 FL Neutrophils (%) (Auto) 48.7 % Lymphocytes (%) (Auto) 41.9 % Monocytes (%) (Auto) 7.7 % Eosinophils (%) (Auto) 1.1 % Basophils (%) (Auto) 0.6 % Neutrophils # (Auto) 4.2 TH/MM3 Lymphocytes # (Auto) 3.6 TH/MM3 Monocytes # (Auto) 0.7 TH/MM3 Eosinophils # (Auto) 0.1 TH/MM3 Basophils # (Auto) 0.0 TH/MM3 CBC Comment DIFF FINAL Differential Comment Prothrombin Time 10.9 SEC Prothromb Time International Ratio 1.1 RATIO Activated Partial Thromboplast Time 29.2 SEC D-Dimer Quantitative (PE/DVT) 0.77 MG/L FEU Blood Urea Nitrogen 14 MG/DL Creatinine 1.45 MG/DL Random Glucose 108 MG/DL Total Protein 7.4 GM/DL Albumin 3.4 GM/DL Calcium Level 8.7 MG/DL Magnesium Level 2.1 MG/DL Alkaline Phosphatase 86 U/L Aspartate Amino Transf (AST/SGOT) 26 U/L Alanine Aminotransferase (ALT/SGPT) 22 U/L Total Bilirubin 0.3 MG/DL Sodium Level 141 MEQ/L Potassium Level 4.0 MEQ/L Chloride Level 104 MEQ/L Carbon Dioxide Level 28.0 MEQ/L Anion Gap 9 MEQ/L Estimat Glomerular Filtration Rate 49 ML/MIN Total Creatine Kinase 276 U/L Creatine Kinase MB 2.4 NG/ML Troponin I LESS THAN 0.02 NG/ML Lipase 167 U/L MDM Medical Decision Making Medical Screen Exam Complete: Yes Emergency Medical Condition: Yes Medical Record Reviewed: Yes Interpretation(s) EKG: Sinus, rate 77, normal axis, normal intervals, no acute ischemic abnormality. Differential Diagnosis ACS, pneumothorax, pericarditis, PE, pneumonia, pulmonary edema Narrative Course Vital signs show heart rate 90, blood pressure 159/84, pulse ox 96% on room air , oral temperature 98.8F. CBC is unremarkable. CMP is remarkable for creatinine 1.45, GFR 49, otherwise unremarkable. Cardiac enzymes are negative. Lipase is 167. D-dimer slightly elevated at 0.77. Chest x-ray: Minimal parenchymal changes at the left base new from comparison study. CT pulmonary angiogram: CONCLUSION: 1. No definite PE. 2. No focal or acute pulmonary infiltrates. The patient had moderate improvement in pain after nitro. He was given a full aspirin. He was made aware of all findings. He still continues to have some left-sided chest pain. He will be admitted to the chest pain center for further cardiac evaluation. Diagnosis Primary Impression: Chest pain Qualified Codes: R07.9 - Chest pain, unspecified Admitting Information Admitting Physician Requests: Observation Wil Ortega MD August 08, 2017 16:43
[2017-08-08] MEDS ORDERED: NITROGLYCERIN 0.4 MG SL 25 TABS/BTL SL ONE (16:45)
[2017-08-08] MEDS ORDERED: SODIUM CHLORIDE 0.9% FLUSH 10 ML FLUSH IVF PRN (16:45)
[2017-08-08] MEDS ORDERED: ASPIRIN 81 MG CHEW TAB PO ONE (16:45)
[2017-08-08 17:19] LABS: AUTOMATED NEUTROPHIL # 4.2 TH/MM3 (1.8-7.7); BASOPHIL % 0.6 % (0.0-2.0); EOSINOPHIL # 0.1 TH/MM3 (0-0.4); EOSINOPHIL % 1.1 % (0.0-4.0); HEMATOCRIT 45.2 % (39.0-51.0); HEMOGLOBIN 15.5 GM/DL (13.0-17.0); LYMPH % 41.9 % (9.0-44.0); LYMPHOCYTE # 3.6 TH/MM3 (1.0-4.8); MEAN CELL VOLUME 91.6 FL (80.0-100.0); MEAN CORPUSCULAR HEMOGLOBIN 31.5 PG (27.0-34.0); MEAN CORPUSCULAR HGB CONC 34.4 % (32.0-36.0); MEAN PLATELET VOLUME 6.7 FL (7.0-11.0); MONO % 7.7 % (0.0-8.0); MONOCYTE # 0.7 TH/MM3 (0-0.9); NEUT % 48.7 % (16.0-70.0); PLATELET COUNT 260 TH/MM3 (150-450); RED BLOOD COUNT 4.94 MIL/MM3 (4.50-5.90); RED CELL DISTRIBUTION WIDTH 12.5 % (11.6-17.2); WHITE BLOOD COUNT 8.6 TH/MM3 (4.0-11.0)
--- NOTE | 2017-08-08 17:31 | RADRPT ---
EXAM DATE/TIME: 08/08/2017 16:57 [facility] COMPARISON: CHEST SINGLE AP, March 20, 2017, 20:06. INDICATIONS : Chest pain and shortness of breath. MEDICAL HISTORY : Hypercholesterolemia. Hypertension. Encephalitis. Diverticulitis. GERD. Kidney stones. Arthriti s. Cerbral palsy. SURGICAL HISTORY : Lithotripsy. Tonsillectomy. Left ankle surgery. Bilateral knee replacements. ENCOUNTER: Initial ACUITY: 1 week PAIN SCORE: 10/10 LOCATION: Bilateral chest FINDINGS: Minimal basilar parenchymal changes left base.. Right lung is clear. The cardiomediastinal contours are unremarkable. Osseous structures are intact. CONCLUSION: Minimal parenchymal changes left base new from comparison study Ricardo Haji MD FACR on August 08, 2017 at 17:28 Board Certified Radiologist. This report was verified electronically.
[2017-08-08 17:32] LABS: INTERNATIONAL NORMALIZED RATIO 1.1 RATIO; PROTHROMBIN TIME - PATIENT 10.9 SEC (9.8-11.6)
[2017-08-08 17:36] LABS: D-DIMER 0.77 MG/L FEU (0.00-0.50)
[2017-08-08 17:48] LABS: ALBUMIN 3.4 GM/DL (3.4-5.0); AST (GOT) 26 U/L (15-37); BLOOD UREA NITROGEN 14 MG/DL (7-18); CALCIUM 8.7 MG/DL (8.5-10.1); CHLORIDE 104 MEQ/L (98-107); CREATININE 1.45 MG/DL (0.60-1.30); GLOMERULAR FILTRATION RATE 49 ML/MIN (>89); GLUCOSE,RANDOM 108 MG/DL (74-106); MAGNESIUM 2.1 MG/DL (1.5-2.5); SODIUM (NA) 141 MEQ/L (136-145)
[2017-08-08 17:49] LABS: ALT (GPT) 22 U/L (12-78)
[2017-08-08 17:52] LABS: ALKALINE PHOSPHATASE 86 U/L (45-117); TOTAL BILIRUBIN ADULT 0.3 MG/DL (0.2-1.0); TOTAL PROTEIN 7.4 GM/DL (6.4-8.2); TROPONIN I LESS THAN 0.02 NG/ML (0.02-0.05)
--- NOTE | 2017-08-08 18:44 | RADRPT ---
EXAM DATE/TIME: 08/08/2017 18:23 [facility] COMPARISON: No previous studies available for comparison. INDICATIONS : Chest pain and shortness of breath past week. IV CONTRAST: 74 cc Omnipaque 350 (iohexol) IV RADIATION DOSE: 23.48 CTDIvol (mGy) MEDICAL HISTORY : Cardiovascular disease. Hypertension. Gastroesophageal reflux disease.Cerebral Palsy Renal stones SURGICAL HISTORY : Total knee replacement, left. Total knee replacement, right. ENCOUNTER: Initial ACUITY: 1 week PAIN SCALE: 10/10 LOCATION: Bilateral chest TECHNIQUE: Volumetric scanning of the chest was performed using a pulmonary embolism protocol MIP images were re constructed. Using automated exposure control and adjustment of the mA and/or kV according to patien t size, radiation dose was kept as low as reasonably achievable to obtain optimal diagnostic quality images. DICOM format image data is available electronically for review and comparison. Follow-up recommendations for detected pulmonary nodules are based at a minimum on nodule size and pa tient risk factors according to Fleischner Society Guidelines. FINDINGS: PULMONARY ARTERIES: No definite filling defects are seen in the pulmonary arteries through the segmental level. LUNGS: There is no consolidation or pneumothorax . No concerning pulmonary nodule is visualized. PLEURAE: There is no pleural thickening or pleural effusion. MEDIASTINUM: There is good visualization of the great vessels of the middle mediastinum. No evidence of mediastin al or hilar adenopathy/mass. MUSCULOSKELETAL: Within normal limits for patient age. MISCELLANEOUS: The visualized upper abdominal organs demonstrate no acute abnormality. CONCLUSION: 1. No definite PE. 2. No focal or acute pulmonary infiltrates. Roland Walsh MD on August 08, 2017 at 18:38 Board Certified Radiologist. This report was verified electronically.
[2017-08-08] MEDS ORDERED: SODIUM CHLORIDE 0.9% FLUSH 10 ML FLUSH IV FLUSH PRN (19:30)
[2017-08-08] MEDS: SODIUM CHLORIDE 0.9% FLUSH 10 ML FLUSH IV FLUSH SCH (22:41)
[2017-08-08 23:40] LABS: TROPONIN I LESS THAN 0.02 NG/ML (0.02-0.05)
[2017-08-09 03:12] VITALS: BP 127/70; PULSE 64; RESP 16; TEMP 98.4; O2SAT 95
[2017-08-09 05:27] LABS: TROPONIN I LESS THAN 0.02 NG/ML (0.02-0.05)
[2017-08-09 08:14] VITALS: BP 133/55; PULSE 72; RESP 20; TEMP 97.9; O2SAT 96
[2017-08-09 08:35] VITALS: PULSE 63
--- NOTE | 2017-08-09 09:15 | HHI.HP ---
HPI Primary Care Physician Rosario Slaughter Chief Complaint Chest pain History of Present Illness This is a 62-year-old male with history of hypertension, hyperlipidemia, cerebral palsy, bipolar disorder, and tobacco abuse that presents to ED to be evaluated for chest discomfort he states has been constantly present for 1 week. Describes as a tightness. Points to left chest. Really cannot relate any worsening or improving his symptoms but he believes that the first time it occurred was while he was pushing his walker with 20 pounds of simeon litter on the walker. Has had intermittent shortness of breath. No nausea or diaphoresis. He did not try any remedies at home for the discomfort. Has had no recent fever. He states he had a cough for about 5 or 6 days but that resolved 2 weeks ago. Denies recent travel. He states that he has had a stress test in the past but it has been many years. Review of Systems General: Patient denies fevers, chills, and recent travel. HEENT: Patient denies headache, sore throat, difficulty swallowing. Cardiovascular: Has the chest discomfort as mentioned above. Denies sensation of heart beating rapidly or irregularly. No syncope. Denies diaphoresis. Respiratory: Occasional shortness of breath. Denies inspirational chest discomfort. Denies coughing wheezing or hemoptysis. GI: Patient denies nausea, vomiting, diarrhea, abdominal pain, bloody stools. Musculoskeletal: Patient denies joint pain or edema. Denies calf pain or edema. Neurovascular: Patient denies numbness, tingling, weakness in extremities. Denies headache. Endocrine: Denies polyuria and polydipsia. Hematologic: Denies easy bruising. Skin: Denies rash or itching. Past Family Social History Allergies: Coded Allergies: cephalexin (Unverified Allergy, Severe, RASH, 07/12/17) Keflex Past Medical History Hypertension however he takes no medication. Hyperlipidemia which she also takes no medication. Cerebral palsy. Tobacco abuse. Denies diabetes and known CAD. Past Surgical History Bilateral knees. Tonsillectomy. Reported Medications Reported Meds & Active Scripts Active Reported Hydroxyzine Pamoate 50 Mg Cap 50 Mg PO HS Bupropion HCl 100 Mg Tab 150 Mg PO HS Ziprasidone 60 Mg Cap 120 Mg PO HS Active Ordered Medications Current Medications Medications (Trade) Dose Ordered Sig/Modesta Route Start Time Stop Time Status Last Admin (NS Flush) 2 ml UNSCH PRN IVF 08/08/17 16:45 (NS Flush) 2 ml UNSCH PRN IV FLUSH 08/08/17 19:30 (NS Flush) 2 ml BID IV FLUSH 08/08/17 21:00 08/08/17 22:41 Family History Denies family history of CAD. Social History Began smoking 3 years ago and smokes 1 pack of cigarettes daily. Denies alcohol or illicit drug use. Physical Exam Vital Signs Vital Signs Date Time Temp Pulse Resp B/P (MAP) Pulse Ox O2 Delivery O2 Flow Rate FiO2 08/09/17 08:35 63 08/09/17 08:35 63 08/09/17 08:14 97.9 72 20 133/55 (81) 96 08/09/17 03:12 98.4 64 16 127/70 (89) 95 08/08/17 23:16 98.4 61 18 119/63 (81) 96 08/08/17 21:18 98.5 75 18 143/66 (91) 95 08/08/17 19:39 96 08/08/17 17:58 78 18 118/66 (83) 96 Room Air 08/08/17 17:51 89 18 98 Room Air 08/08/17 17:10 81 18 118/66 (83) 94 Room Air 08/08/17 17:01 18 94 Room Air 08/08/17 16:03 98.8 90 20 159/84 (109) 96 Physical Exam GENERAL: This is a well-nourished, well-developed patient, in no apparent distress. Patient speaks in clear complete sentences. Patient is pleasant. HEENT: Head is atraumatic and normocephalic. Neck is supple without lymphadenopathy and trachea is midline. No JVD or carotid bruits. CARDIOVASCULAR: Regular rate and rhythm without murmurs, gallops, or rubs. RESPIRATORY: Clear to auscultation. Breath sounds equal bilaterally. No wheezes , rales, or rhonchi. Chest wall is tender. No use of accessory muscles. GASTROINTESTINAL: Abdomen is nontender, nondistended. Abdomen soft. No obvious pulsatile mass or bruit. No CVA tenderness. Strong femoral pulses bilaterally. Normal bowel sounds in all quadrants. MUSCULOSKELETAL: Patient is moving upper and lower extremities freely. No calf tenderness or edema, no Homans sign. Strong pulses in upper and lower extremities. NEUROLOGICAL: Patient is alert and oriented. Cranial nerves 2-12 are grossly intact. No focal deficits and speech is clear. SKIN: No rash and turgor is normal. Laboratory Laboratory Tests Test 08/08/17 16:58 08/08/17 22:40 08/09/17 04:30 White Blood Count 8.6 Red Blood Count 4.94 Hemoglobin 15.5 Hematocrit 45.2 Mean Corpuscular Volume 91.6 Mean Corpuscular Hemoglobin 31.5 Mean Corpuscular Hemoglobin Concent 34.4 Red Cell Distribution Width 12.5 Platelet Count 260 Mean Platelet Volume 6.7 Neutrophils (%) (Auto) 48.7 Lymphocytes (%) (Auto) 41.9 Monocytes (%) (Auto) 7.7 Eosinophils (%) (Auto) 1.1 Basophils (%) (Auto) 0.6 Neutrophils # (Auto) 4.2 Lymphocytes # (Auto) 3.6 Monocytes # (Auto) 0.7 Eosinophils # (Auto) 0.1 Basophils # (Auto) 0.0 CBC Comment DIFF FINAL Differential Comment Prothrombin Time 10.9 Prothromb Time International Ratio 1.1 Activated Partial Thromboplast Time 29.2 D-Dimer Quantitative (PE/DVT) 0.77 Blood Urea Nitrogen 14 Creatinine 1.45 Random Glucose 108 Total Protein 7.4 Albumin 3.4 Calcium Level 8.7 Magnesium Level 2.1 Alkaline Phosphatase 86 Aspartate Amino Transf (AST/SGOT) 26 Alanine Aminotransferase (ALT/SGPT) 22 Total Bilirubin 0.3 Sodium Level 141 Potassium Level 4.0 Chloride Level 104 Carbon Dioxide Level 28.0 Anion Gap 9 Estimat Glomerular Filtration Rate 49 Total Creatine Kinase 276 283 250 Creatine Kinase MB 2.4 1.8 1.8 Troponin I LESS THAN 0.02 LESS THAN 0.02 LESS THAN 0.02 Lipase 167 Result Diagram: 08/08/17 1658 08/08/17 1658 Imaging Last 72 hours Impressions Chest X-Ray 08/08/17 1638 Signed Impressions: Service Date/Time: Tuesday, August 08, 2017 16:57 - CONCLUSION: Minimal parenchymal changes left base new from comparison study Ricardo Haji MD FACR CT Angiography 08/08/17 0000 Signed Impressions: Service Date/Time: Tuesday, August 08, 2017 18:23 - CONCLUSION: 1. No definite PE. 2. No focal or acute pulmonary infiltrates. Roland J. Siragusa, MD Course EKGs are sinus rhythm without significant ST segment depressions or elevations. Caprini VTE Risk Assessment Caprini VTE Risk Assessment: Mod/High Risk (score >= 2) Caprini Risk Assessment Model Point Value = 1 Point Value = 2 Point Value = 3 Point Value = 5 Age 41-60 Minor surgery BMI > 25 kg/m2 Swollen legs Varicose veins or History of unexplained or recurrent spontaneous Oral contraceptives or hormone replacement Sepsis (< 1 month) Serious lung disease, including pneumonia (< 1 month) Abnormal pulmonary function Acute myocardial infarction Congestive heart failure (< 1 month) History of inflammatory bowel disease Medical patient at bed rest Age 61-74 Arthroscopic surgery Major open surgery (> 45 min) Laparoscopic surgery (> 45 min) Malignancy Confined to bed (> 72 hours) Immobilizing plaster cast Central venous access Age >= 75 History of VTE Family history of VTE Factor V Leiden Prothrombin [id number] Lupus anticoagulant Anticardiolipin antibodies Elevated serum homocysteine Heparin-induced thrombocytopenia Other congenital or acquired thrombophilia Stroke (< 1 month) Elective arthroplasty Hip, pelvis, or leg fracture Acute spinal cord injury (< 1 month) Prophylaxis Regimen Total Risk Factor Score Risk Level Prophylaxis Regimen 0-1 Low Early ambulation 2 Moderate Order ONE of the following: *Sequential Compression Device (SCD) *Heparin 5000 units SQ BID 3-4 Higher Order ONE of the following medications: *Heparin 5000 units SQ TID *Enoxaparin/Lovenox 40 mg SQ daily (WT < 150 kg, CrCl > 30 mL/min) *Enoxaparin/Lovenox 30 mg SQ daily (WT < 150 kg, CrCl > 10-29 mL/min) *Enoxaparin/Lovenox 30 mg SQ BID (WT < 150 kg, CrCl > 30 mL/min) AND/OR *Sequential Compression Device (SCD) 5 or more Highest Order ONE of the following medications: *Heparin 5000 units SQ TID (Preferred with Epidurals) *Enoxaparin/Lovenox 40 mg SQ daily (WT < 150 kg, CrCl > 30 mL/min) *Enoxaparin/Lovenox 30 mg SQ daily (WT < 150 kg, CrCl > 10-29 mL/min) *Enoxaparin/Lovenox 30 mg SQ BID (WT < 150 kg, CrCl > 30 mL/min) AND *Sequential Compression Device (SCD) Assessment and Plan Assessment and Plan * Chest pain: Patient's symptoms are atypical however he has risk factors for CAD. Patient has had serial cardiac enzymes and EKGs for ruling out purposes. He will be seen by Dr. Pereira of cardiology in the chest pain center. He will undergo a Lexiscan. He would be discharged home with a stress test is nonischemic with instructions to follow-up with PCP. Return to ED for interval issues. * Tobacco abuse: Patient has been counseled on importance of smoking cessation. * Hypertension: States he has history of hypertension but has never been medicated. His blood pressures have been okay. We will continue to monitor. He should keep a journal at home blood pressure recordings to discuss with his PCP. * Hyperlipidemia: Also patient states takes a medication. He should discuss this with his PCP. He should optimize medical management of his hyperlipidemia. Patient is stable at this time. He is agreeable to this plan. Javier Marcum August 09, 2017 09:15
[2017-08-09] MEDS: SODIUM CHLORIDE 0.9% FLUSH 10 ML FLUSH IV FLUSH SCH (09:51)
[2017-08-09] MEDS ORDERED: REGADENOSON INJ 0.4 MG/5 ML SYR ONE (10:41)
--- NOTE | 2017-08-09 12:20 | PD.CARD.PN ---
Subjective Subjective Remarks 62-year-old bipolar patient who presented because of dyspnea on exertion and some chest pain. The patient was discussed with PA, medical records were reviewed, laboratory and radiographic data reviewed and then the patient was seen and examined personally. Discussed plan and treatment with the physician snuff maker. I am in agreement with the documentation as recorded at this point. Objective Medications Current Medications Medications (Trade) Dose Ordered Sig/Modesta Route Start Time Stop Time Status Last Admin (NS Flush) 2 ml UNSCH PRN IVF 08/08/17 16:45 (NS Flush) 2 ml UNSCH PRN IV FLUSH 08/08/17 19:30 (NS Flush) 2 ml BID IV FLUSH 08/08/17 21:00 08/09/17 09:51 Vital Signs / I&O Vital Signs Date Time Temp Pulse Resp B/P (MAP) Pulse Ox O2 Delivery O2 Flow Rate FiO2 08/09/17 08:35 63 08/09/17 08:35 63 08/09/17 08:14 97.9 72 20 133/55 (81) 96 08/09/17 03:12 98.4 64 16 127/70 (89) 95 08/08/17 23:16 98.4 61 18 119/63 (81) 96 08/08/17 21:18 98.5 75 18 143/66 (91) 95 08/08/17 19:39 96 08/08/17 17:58 78 18 118/66 (83) 96 Room Air 08/08/17 17:51 89 18 98 Room Air 08/08/17 17:10 81 18 118/66 (83) 94 Room Air 08/08/17 17:01 18 94 Room Air 08/08/17 16:03 98.8 90 20 159/84 (109) 96 Physical Exam Obese somewhat odiferous but pleasant patient in no acute distress. Chest is clear Cardiovascular reveals a regular sinus rhythm with no gallop rub or murmur abdomen is obese soft nontender Laboratory Laboratory Tests Test 08/08/17 16:58 08/08/17 22:40 08/09/17 04:30 White Blood Count 8.6 TH/MM3 Red Blood Count 4.94 MIL/MM3 Hemoglobin 15.5 GM/DL Hematocrit 45.2 % Mean Corpuscular Volume 91.6 FL Mean Corpuscular Hemoglobin 31.5 PG Mean Corpuscular Hemoglobin Concent 34.4 % Red Cell Distribution Width 12.5 % Platelet Count 260 TH/MM3 Mean Platelet Volume 6.7 FL Neutrophils (%) (Auto) 48.7 % Lymphocytes (%) (Auto) 41.9 % Monocytes (%) (Auto) 7.7 % Eosinophils (%) (Auto) 1.1 % Basophils (%) (Auto) 0.6 % Neutrophils # (Auto) 4.2 TH/MM3 Lymphocytes # (Auto) 3.6 TH/MM3 Monocytes # (Auto) 0.7 TH/MM3 Eosinophils # (Auto) 0.1 TH/MM3 Basophils # (Auto) 0.0 TH/MM3 CBC Comment DIFF FINAL Differential Comment Prothrombin Time 10.9 SEC Prothromb Time International Ratio 1.1 RATIO Activated Partial Thromboplast Time 29.2 SEC D-Dimer Quantitative (PE/DVT) 0.77 MG/L FEU Blood Urea Nitrogen 14 MG/DL Creatinine 1.45 MG/DL Random Glucose 108 MG/DL Total Protein 7.4 GM/DL Albumin 3.4 GM/DL Calcium Level 8.7 MG/DL Magnesium Level 2.1 MG/DL Alkaline Phosphatase 86 U/L Aspartate Amino Transf (AST/SGOT) 26 U/L Alanine Aminotransferase (ALT/SGPT) 22 U/L Total Bilirubin 0.3 MG/DL Sodium Level 141 MEQ/L Potassium Level 4.0 MEQ/L Chloride Level 104 MEQ/L Carbon Dioxide Level 28.0 MEQ/L Anion Gap 9 MEQ/L Estimat Glomerular Filtration Rate 49 ML/MIN Total Creatine Kinase 276 U/L 283 U/L 250 U/L Creatine Kinase MB 2.4 NG/ML 1.8 NG/ML 1.8 NG/ML Troponin I LESS THAN 0.02 NG/ML LESS THAN 0.02 NG/ML LESS THAN 0.02 NG/ML Lipase 167 U/L Imaging Last 24 hours Impressions Chest X-Ray 08/08/17 1638 Signed Impressions: Service Date/Time: Tuesday, August 08, 2017 16:57 - CONCLUSION: Minimal parenchymal changes left base new from comparison study Ricardo Haji MD FACR Assessment and Plan Assessment and Plan Rule out using chest pain center protocol and obtain nuclear stress test. If negative discharge home with outpatient follow-up. If positive will consider admission. Discussed Condition With This plan was discussed with the patient when he is in agreement. Colin Pereira MD August 09, 2017 12:20
--- NOTE | 2017-08-09 12:24 | RADRPT ---
EXAM DATE/TIME: 08/09/2017 10:26 [place] COMPARISON: No previous studies available for comparison. INDICATIONS : Left sided chest pain. Angina. DOSE: 35 mCi Tc99m Myoview at stress. 11 mCi Tc99m Myoview at rest. 0.4 mg Lexiscan STRESS SYMPTOMS: Dyspnea and dizziness. EJECTION FRACTION: 53% MEDICAL HISTORY : Cerebral palsy. SURGICAL HISTORY : Bilateral knee and left ankle surgery. ENCOUNTER: Initial ACUITY: 1 day PAIN SCALE: 4/10 LOCATION: Left chest TECHNIQUE: The patient underwent pharmacologic stress with infusion of prescribed dose. Continuous ECG tracing was monitored during stress. Gated SPECT imaging was performed after stress and conventional SPECT i maging was performed at rest. The examination was performed on a SPECT/CT scanner, both attenuation and non-corrected datasets were reviewed. FINDINGS: The best perfused myocardium is the lateral wall. There is no redistribution to suggest stress-induc ed ischemia. The ejection fraction is 53% with minimal inferior wall hypokinesis. CONCLUSION: Negative for stress-induced ischemia. Minimally depressed ejection fraction. Correlation is suggest ed. RISK CATEGORY: Low (<1% Annual Mortality Rate) Ricardo Haji MD FACR on August 09, 2017 at 12:20 Board Certified Radiologist. This report was verified electronically.
[2017-08-09 12:34] VITALS: BP 125/62; PULSE 68; RESP 20; TEMP 98.9; O2SAT 96
--- NOTE | 2017-08-09 12:52 | EKG ---
Date Performed: 08/08/2017 Time Performed: 23:24:24 PTAGE: 62 years EKG: Sinus rhythm NORMAL ECG PREVIOUS TRACING : 08/08/2017 16.30 DOCTOR: Colin Pereira Interpretating Date/Time 08/09/2017 12:50:54
--- NOTE | 2017-08-09 12:53 | EKG ---
Date Performed: 08/08/2017 Time Performed: 16:30:21 PTAGE: 62 years EKG: Sinus rhythm NORMAL ECG PREVIOUS TRACING : 07/12/2017 06.22 DOCTOR: Colin Pereira Interpretating Date/Time 08/09/2017 12:51:28
--- NOTE | 2017-08-09 12:54 | TR ---
Date Performed: 08/09/2017 Time Performed: 11:06:48 DOCTOR: Colin Pereira DRUG LIST: CLINICAL HISTORY: REASON FOR TEST: CHEST PAIN REASON FOR ENDING: OBSERVATION: CONCLUSION: Lexiscan stress test was performed under standard four minute protocol. Radionuclide was injected one minute prior to ending the test. No electrocardiographic abormalities were present to suggest ischemia. Nuclear imaging and interpretation are pending. COMMENTS:
[2017-08-09 12:59] VITALS: PULSE 67
--- NOTE | 2017-08-09 13:58 | HHI.DCPOC ---
Discharge Care Plan Diagnosis: (1) Chest pain (2) Tobacco abuse Goals to Promote Your Health * To prevent worsening of your condition and complications * To maintain your health at the optimal level Directions to Meet Your Goals Take your medications as prescribed Follow your dietary instruction Follow activity as directed Keep your appointments as scheduled Take your immunizations and boosters as scheduled If your symptoms worsen call your PCP, if no PCP go to Urgent Care Center or Emergency Room Smoking is Dangerous to Your Health. Avoid second hand smoke Call the 24-hour hour crisis hotline for domestic abuse at Javier Marcum August 09, 2017 13:58
== END 2017-08-09 15:22 | disposition home or self-care (01) ==
LOC: NEPE 15:59 → NEDA 19:29 → NEPGCP 21:11
PROVIDERS: ADMIT Internal Medicine Interventional Cardiology; ATTEND Internal Medicine Interventional Cardiology
DX: R07.9 Chest pain, unspecified (principal); I10 Essential (primary) hypertension; E78.5 Hyperlipidemia, unspecified; F17.210 Nicotine dependence, cigarettes, uncomplicated; F31.9 Bipolar disorder, unspecified; G80.9 Cerebral palsy, unspecified; Z86.61 Personal history of infections of the central nervous system; Z87.442 Personal history of urinary calculi
CPT/HCPCS: 71045; 71275; 78452; 80053; 82550; 82552; 83690; 83735; 84484; 85025; 85379; 85610; 85730; 93005; 93017; 99285; A9502; G0378; J2785; Q9967

== ENCOUNTER 2018-01-28 10:05 | Observation (INO) ==
[2018-01-28 10:23] VITALS: TEMP 98.6
[2018-01-28] MEDS ORDERED: Famotidine PF Inj 20 MG/2 ML Vial IV.PUSH ONE (10:32)
[2018-01-28 10:51] VITALS: O2SAT 97
[2018-01-28] MEDS: Sodium Chlor 0.9% Inj 500 ML IV.SIG SCH ×2 (10:57→11:03)
--- NOTE | 2018-01-28 11:02 | ED ---
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 He states that last night he began to have some nausea and vomiting which was nonbilious and nonbloody. Shortly after his last episode of emesis he began to have chest tightness. It has been ongoing for the last 4 hours and is unchanged. He is not sure if he is short of breath. No fever nor chills. No further episodes of emesis. He had crampy abdominal pain while vomiting which was diffuse but this has now resolved. No diarrhea. complaint: Reports nausea and vomiting Onset (ago): day(s) Description of Vomiting: food contents Description of Diarrhea: none Associated Abdominal Pain: Yes Location of pain: Reports diffuse Severity: mild Quality: Reports cramping Pain Consistency: now resolved Relieving factors: none Exacerbating factors: none Associated symptoms: Reports chest pain and anxiety Related Data Home Medications Medication Instructions Recorded Confirmed bupropion HCl 150 mg PO BID 01/28/18 01/28/18 Allergies Allergy/AdvReac Type Severity Reaction Status Date / Time cephalexin Allergy Severe RASH Verified 01/28/18 10:49 Review of Systems ROS: all other systems reviewed are negative [facility] Medical History Medical History Cerebral palsy (Chronic) Hypertension (Chronic) Social History Social History Substance History: No History of Abuse Second Hand Smoke Exposure: No Smoking Status: Never smoker How Often Do You Have a Drink Containing Alcohol: Never Recent Travel in [facility] within the Last 8 Weeks: No Recent Out of Country Travel within the Last 8 Weeks: No Immunization History Tetanus Immunization: Unsure Exam Narrative Exam Narrative: GENERAL: Well-appearing male in no acute distress, breathing comfortably on room air SKIN: Focused skin assessment warm/dry. HEAD: Atraumatic. Normocephalic. EYES: Pupils equal and round. No scleral icterus. No injection or drainage. ENT: No nasal bleeding or discharge. Mucous membranes pink and moist. NECK: Trachea midline. No JVD. CARDIOVASCULAR: Regular rate and rhythm. No murmur appreciated. Intact and equal peripheral pulses. Normal cap refill. No Homans crunch. RESPIRATORY: No accessory muscle use. Clear to auscultation. Breath sounds equal bilaterally. No crepitus. GASTROINTESTINAL: Abdomen soft, non-tender, nondistended. Hepatic and splenic margins not palpable. MUSCULOSKELETAL: No obvious deformities. No clubbing. No cyanosis. No edema. NEUROLOGICAL: Awake and alert. No obvious cranial nerve deficits. Motor grossly within normal limits. Normal sensation. Normal speech for him. PSYCHIATRIC: Appropriate mood and affect; insight and judgment normal. Course Initial Documented Vital Signs Temperature 98.6 F 01/28/18 10:21 Pulse Rate 87 01/28/18 10:21 Respiratory Rate 20 01/28/18 10:21 Blood Pressure 148/74 H 01/28/18 10:21 Pulse Oximetry 96 01/28/18 10:21 Last Documented Vital Signs Temperature 98.6 F 01/28/18 10:21 Pulse Rate 96 H 01/28/18 12:58 Respiratory Rate 18 01/28/18 12:58 Blood Pressure 130/77 01/28/18 12:58 Pulse Oximetry 97 01/28/18 10:51 Medical Decision Making MDM Narrative Medical decision making narrative: Patient is a 62-year-old male who presents with complaint of chest tightness that began this morning and has been constant. It did occur after he had some nausea and vomiting but is not having any shortness of breath. EKG is without acute ischemic changes. Chest x-ray is unremarkable and does not show any pneumomediastinum nor pleural effusion. Labs are unremarkable. Patient began to feel well after the Pepcid and felt better after GI cocktail. He continued to appear well and does not appear to have Boerhaave syndrome. He has been placed in the chest pain center for serial troponins and EKGs. Medical Screen Exam Complete: Yes Emergency Medical Condition: Yes Differential Diagnosis Differential Diagnosis: Differential diagnosis includes but is not limited to gastroenteritis, Boerhaave syndrome, gastroesophageal reflux disease. Medical Records Medical records reviewed: Yes I reviewed the patient's medical records. Lab Data Lab results reviewed: Yes I reviewed the patient's lab results. Result diagrams: 01/28/18 10:44 01/28/18 10:44 Lab Results 01/28/18 01/28/18 Range/Units 10:44 10:44 WBC 8.7 (4.0-11.0) th/mm3 RBC 5.02 (4.50-5.90) mil/mm3 Hgb 16.2 (13.0-17.0) gm/dL Hct 47.7 (39.0-51.0) % MCV 95.0 (80.0-100.0) fL MCH 32.3 (27.0-34.0) pg MCHC 34.0 (32.0-36.0) % RDW 13.2 (11.6-17.2) % Plt Count 226 (150-450) th/mm3 MPV 6.9 L (7.0-11.0) fL Neut % (Auto) 72.5 H (16.0-70.0) % Lymph % (Auto) 21.8 (9.0-44.0) % Page % (Auto) 5.5 (0.0-8.0) % Eos % (Auto) 0.0 (0.0-4.0) % Baso % (Auto) 0.2 (0.0-2.0) % Neut # (Auto) 6.3 (1.8-7.7) th/mm3 Lymph # (Auto) 1.9 (1.0-4.8) th/mm3 Page # (Auto) 0.5 (0.0-0.9) th/mm3 Eos # (Auto) 0.0 (0.0-0.4) th/mm3 Baso # (Auto) 0.0 (0.0-0.2) th/mm3 WBC Differential . Differential Comment Auto diff final Sodium 139 (136-145) meq/L Potassium 4.1 (3.5-5.1) meq/L Chloride 101 (98-107) meq/L Carbon Dioxide 26.3 (21.0-32.0) meq/L Anion Gap 12 (5-15) meq/L BUN 14 (7-18) mg/dL Creatinine 1.26 (0.60-1.30) mg/dL Estimated GFR 58 L (>89) mL/min Random Glucose 105 (74-106) mg/dL Calcium 9.0 (8.5-10.1) mg/dL Total Bilirubin 0.5 (0.2-1.0) mg/dL AST 34 (15-37) U/L ALT 29 (12-78) U/L Alkaline Phosphatase 79 (45-117) U/L Troponin I Less than 0.02 L (0.02-0.05) ng/mL Total Protein 8.0 (6.4-8.2) g/dL Albumin 3.8 (3.4-5.0) g/dL Imaging Data Attestation: I personally reviewed and interpreted this imaging study as follows : My impression: No acute cardiopulmonary process. Radiologist's impression: Chest X-Ray 01/28/18 10:30 CONCLUSION: No acute cardiopulmonary disease ECG Data EKG Prior to Arrival: No Attestation: I personally reviewed and interpreted this ECG as follows: (Sinus rhythm at a rate of [address] or T wave changes.) Discharge Plan Discharge Disposition Patient Disposition: 30 Still Patient Discharge Condition Condition: Stable Discharge Details Diagnosis: Chest pain, rule out acute myocardial infarction, GERD with esophagitis Physicians Team ED Provider: Jocy Baker Primary Care Provider: Blaise Polo Attending Provider: Renzo Núñez Status ED Status: Admitted Observation Patient
--- NOTE | 2018-01-28 11:27 | XR ---
EXAM DATE: 01/28/2018 11:12 AM EDT AGE/SEX: 62 years / Male INDICATIONS: . Chest pain CLINICAL DATA: This is the patient's initial encounter. Patient reports that signs and symptoms have been present for 2 days and indicates a pain score of 3/10. MEDICAL/SURGICAL HISTORY: . : Hypercholesterolemia. Hypertension. Gastroesophageal reflux disea se. Cerebral palsy. Encephalitis. Diverticulitis. Kidney stones. Arthritis. Anxiety. Depression. Bipo lar disorder. . Tonsillectomy. Bilateral knee replacements. Left ankle surgery. COMPARISON: [facility] [place], 08/08/2017. . FINDINGS: PA and lateral views of the chest demonstrate the lungs to be symmetrically aerated without evidence of mass, infiltrate or effusion. The cardiomediastinal contours are unremarkable. Osseous structures are intact. CONCLUSION: No acute cardiopulmonary disease Electronically signed by: Amadou Leon MD 01/28/2018 11:25 AM EDT
[2018-01-28 11:28] LABS: Baso % (Auto) 0.2 % (0.0-2.0); Hematocrit 47.7 % (39.0-51.0); Hemoglobin 16.2 gm/dL (13.0-17.0); Lymph # (Auto) 1.9 th/mm3 (1.0-4.8); Lymph % (Auto) 21.8 % (9.0-44.0); Mean Corpuscular Hemoglobin 32.3 pg (27.0-34.0); Mean Platelet Volume 6.9 fL (7.0-11.0); Mono # (Auto) 0.5 th/mm3 (0.0-0.9); Mono % (Auto) 5.5 % (0.0-8.0); Neut # (Auto) 6.3 th/mm3 (1.8-7.7); Neut % (Auto) 72.5 % (16.0-70.0); Platelet Count 226 th/mm3 (150-450); Red Blood Count 5.02 mil/mm3 (4.50-5.90); Red Cell Distribution Width 13.2 % (11.6-17.2); White Blood Count 8.7 th/mm3 (4.0-11.0)
[2018-01-28 11:58] LABS: Albumin 3.8 g/dL (3.4-5.0); Anion Gap 12 meq/L (5-15); Aspartate Aminotransferase 34 U/L (15-37); Blood Urea Nitrogen 14 mg/dL (7-18); Carbon Dioxide 26.3 meq/L (21.0-32.0); Chloride 101 meq/L (98-107); Glomerular Filtration Rate 58 mL/min (>89); Glucose,Random 105 mg/dL (74-106); Potassium 4.1 meq/L (3.5-5.1); Sodium 139 meq/L (136-145)
[2018-01-28 12:03] LABS: Alanine Aminotransferase 29 U/L (12-78); Alkaline Phosphatase 79 U/L (45-117)
[2018-01-28] MEDS ORDERED: Aluminum/Magnesium/Simethacone Susp 30 ML UDC PO ONE (12:20)
[2018-01-28 12:59] VITALS: BP 130/77; PULSE 96; RESP 18
--- NOTE | 2018-01-28 13:20 | P.HPCA ---
History of Present Illness Primary Care Physician: WALDEMAR Slaughter Chief Complaint: Chest pain History of Present Illness: 62 year old male with history of cerebral palsy, anxiety, and depression presents to ER for further evaluation of nausea, vomiting, and chest tightness. Onset last evening feeling nauseated and vomited intermittent during evening. Endorses past GI issues, unable to recall exactly past diagnoses. Reports vomiting one month for unknown reason. Became considered when developing generalized chest tightness. Mild to moderate in severity. Duration constant. Made worse with deep breathes and palpation. Denies similar pain in the past. Nausea and vomiting have seemed to resolved, requesting to eat. No recent fever , known sick contacts, or suspected food poisoning. Past cardiac testing 08/09/17 Lexiscan-unremarkable, no evidence of stress induced ischemia Social history No known hypertension, hyperlipidemia, CAD, or diabetes. Former smoker, reports only smoking for 4 years total, quit 3 months ago. No alcohol or drug use. Lives independently. Disabled. Ambulated with a wheeled walker. Walks daily 18 blocks. Family history Noncontributory for early onset cardiovascular disease - Diagnosis (1) Musculoskeletal chest pain Review of Systems All other systems reviewed negative except as stated in HPI PMFSH - History History Provided By: Patient - Medical History Medical History: Medical History (Last Updated 01/28/18 @ 13:49 by WALDEMAR Olsen) Anxiety Depression Cerebral palsy Hypertension - Surgical History Surgical History: Surgical History (Last Updated 01/28/18 @ 13:36 by WALDEMAR Olsen) History of bilateral knee replacement - Social History I have reviewed the patient's Social History: Yes - Tobacco History Second Hand Smoke Exposure: No Tobacco Use In Past 30 Days: No Smoking Status: Former smoker (Smoked total of 4 years, quit 3 months ago) - Alcohol History How Often Do You Have a Drink Containing Alcohol: Never - Substance Use History Substance History: No History of Abuse - Travel History History of Recent Travel: No Recent Travel in the [place] Within the Last 8 Weeks: No Recent Travel Out of the Country Within the Last 8 Weeks: No - Immunization History Tetanus Immunization: Unsure Medications and Allergies Active Medications: Active Medications Sodium Chloride (Ns Flush) 2 ml IV.FLUSH UNSCH PRN PRN Reason: FLUSH AFTER USING IV ACCESS Allergies Allergy/AdvReac Type Severity Reaction Status Date / Time cephalexin Allergy Severe RASH Verified 01/28/18 10:49 Home Medications Medication Instructions Recorded Confirmed Type bupropion HCl 150 mg PO BID 01/28/18 01/28/18 History Exam Vital signs: Vital Signs 01/28/18 10:21 01/28/18 10:51 01/28/18 12:58 Temperature 98.6 F Pulse Rate 87 96 H Respiratory Rate 20 18 Blood Pressure 148/74 H 130/77 Pulse Oximetry 96 97 Intake & Output 01/27/18 01/28/18 01/28/18 18:59 06:59 18:59 Intake Total 500 / 500 Balance 500 / 500 Weight 127.006 kg Intake: IV 500 / 500 NS Inj 500 ML @ 1000 mls/hr IV. 500 / 500 SIG BOLUS JACEY Rx#:[id number] Narrative: GENERAL: Alert WN, WD, NAD, very pleasant, obese male HEAD: NC, AT EYES: Sclera clear, conjunctiva without injection ENT: Mucous membranes pink and moist, edentulous NECK: Supple, no masses, trachea midline CV: RRR, without murmur, rub, gallop, no JVD, S1-S2. No carotid bruits. Chest wall easily reproduced with palpation, generalized chest both left/right anterior chest and substernal. RESP: Clear lungs throughout bilateral, no crackles, wheeze, rhonchi, symmetrical chest rise, nonlabored, able to speak in full sentences ABD: Soft, NT, ND, no masses, positive bowel tones BACK: No scoliosis EXT: Pulses +2x4, no dependent edema MS: Normal tone x4 extremities, nontender, no obvious deformities, full range of motion NEURO: CN II through CN XII grossly intact, motor strength 5/5 PSYCH: A+O x3, pleasant affect, appropriate speech, mood, insight and judgment SKIN: Normal turgor, normal texture, no lesions, no rashes, brisk cap refill, even hair distribution, dirty lower extremities, thick toenails Results 01/28/18 10:44 01/28/18 10:44 Cardiac Enzymes 01/28/18 Range/Units 10:44 AST 34 (15-37) U/L Troponin I Less than 0.02 L (0.02-0.05) ng/mL CBC 01/28/18 Range/Units 10:44 WBC 8.7 (4.0-11.0) th/mm3 RBC 5.02 (4.50-5.90) mil/mm3 Hgb 16.2 (13.0-17.0) gm/dL Hct 47.7 (39.0-51.0) % Plt Count 226 (150-450) th/mm3 Neut # (Auto) 6.3 (1.8-7.7) th/mm3 Lymph # (Auto) 1.9 (1.0-4.8) th/mm3 Mclennan # (Auto) 0.5 (0.0-0.9) th/mm3 Eos # (Auto) 0.0 (0.0-0.4) th/mm3 Baso # (Auto) 0.0 (0.0-0.2) th/mm3 Comprehensive Metabolic Panel 01/28/18 Range/Units 10:44 Sodium 139 (136-145) meq/L Potassium 4.1 (3.5-5.1) meq/L Chloride 101 (98-107) meq/L Carbon Dioxide 26.3 (21.0-32.0) meq/L BUN 14 (7-18) mg/dL Creatinine 1.26 (0.60-1.30) mg/dL Calcium 9.0 (8.5-10.1) mg/dL AST 34 (15-37) U/L ALT 29 (12-78) U/L Alkaline Phosphatase 79 (45-117) U/L Total Protein 8.0 (6.4-8.2) g/dL Albumin 3.8 (3.4-5.0) g/dL Intake and Output 01/27/18 01/28/18 01/28/18 22:59 06:59 14:59 Intake Total 500 / 500 Balance 500 / 500 Intake: IV 500 / 500 NS Inj 500 ML @ 1000 mls/hr IV. 500 / 500 SIG BOLUS JACEY Rx#:[id number] Other: Weight 127.006 kg Patient Weight 01/29/18 06:59 Weight 127.006 kg - Imaging and Cardiology Imaging: Impressions Chest X-Ray 01/28/18 10:30 CONCLUSION: No acute cardiopulmonary disease EKG interpretations - EKG EKG results cardiology: sinus rhythm, normal axis, normal QRS, normal ST/T Caprini VTE Risk Assessment Caprini VTE Risk Assessment: Moderate/High Risk (score >= 2) Caprini Risk Assessment Model: Point Value = 1 Point Value = 2 Point Value = 3 Point Value = 5 Age 41-60 Minor surgery BMI > 25 kg/m2 Swollen legs Varicose veins or History of unexplained or recurrent spontaneous Oral contraceptives or hormone replacement Sepsis (< 1 month) Serious lung disease, including pneumonia (< 1 month) Abnormal pulmonary function Acute myocardial infarction Congestive heart failure (< 1 month) History of inflammatory bowel disease Medical patient at bed rest Age 61-74 Arthroscopic surgery Major open surgery (> 45 min) Laparoscopic surgery (> 45 min) Malignancy Confined to bed (> 72 hours) Immobilizing plaster cast Central venous access Age >= 75 History of VTE Family history of VTE Factor V Leiden Prothrombin [id number] Lupus anticoagulant Anticardiolipin antibodies Elevated serum homocysteine Heparin-induced thrombocytopenia Other congenital or acquired thrombophilia Stroke (< 1 month) Elective arthroplasty Hip, pelvis, or leg fracture Acute spinal cord injury (< 1 month) Prophylaxis Regimen: Total Risk Factor Score Risk Level Prophylaxis Regimen 0-1 Low Early ambulation 2 Moderate Order ONE of the following: *Sequential Compression Device (SCD) *Heparin 5000 units SQ BID 3-4 Higher Order ONE of the following medications: *Heparin 5000 units SQ TID *Enoxaparin/Lovenox 40 mg SQ daily (WT < 150 kg, CrCl > 30 mL/min) *Enoxaparin/Lovenox 30 mg SQ daily (WT < 150 kg, CrCl > 10-29 mL/min) *Enoxaparin/Lovenox 30 mg SQ BID (WT < 150 kg, CrCl > 30 mL/min) AND/OR *Sequential Compression Device (SCD) 5 or more Highest Order ONE of the following medications: *Heparin 5000 units SQ TID (Preferred with Epidurals) *Enoxaparin/Lovenox 40 mg SQ daily (WT < 150 kg, CrCl > 30 mL/min) *Enoxaparin/Lovenox 30 mg SQ daily (WT < 150 kg, CrCl > 10-29 mL/min) *Enoxaparin/Lovenox 30 mg SQ BID (WT < 150 kg, CrCl > 30 mL/min) AND *Sequential Compression Device (SCD) Assessment and Plan - Assessment (1) Musculoskeletal chest pain Code(s): R07.89 - Other chest pain Status: Acute Plan: Admitted chest pain center. Seen and evaluated by Dr. Renzo Núñez. EKG and cardiac enzymes normal. Dr. Núñez discussed case with ER physician as well. Physical assessment suggests musculoskeletal pain. Reassurance provided. No further labs or cardiac testing. Recent normal Lexiscan July of this year. Will discharge home. Instructed to use heating pad to affected area, use over the counter Aleve as needed for next 3 days, and notify PCP of recent admission. Patient agreeable to plan of care.
--- NOTE | 2018-01-29 19:21 | ECG ---
Date Performed: 01/28/2018 Time Performed: 10:37:04 PTAGE: 62 years EKG: Sinus rhythm Since the previous tracing, no significant change noted NORMAL ECG NO PREVIOUS TRACING DOCTOR: Jesus Henson Interpretating Date/Time 01/29/2018 19:20:27
== END 2018-01-28 14:00 | disposition home or self-care (01) ==
LOC: NEPD 10:05 → NEDA 10:05
DX: R07.89 Other chest pain; G80.9 Cerebral palsy, unspecified; K21.0 Gastro-esophageal reflux disease with esophagitis; I10 Essential (primary) hypertension